=== PATIENT | male | born 1985 | race Caucasian/White ===

== ENCOUNTER 2016-12-10 14:45 | Inpatient (IN) | payer SELFPAY ==
[2016-12-10 15:17] LABS: ABSOLUTE EOSINOPHILS # (AUTO) 0.1 10^3/uL (0.0-0.6); ABSOLUTE LYMPHOCYTES (AUTO) 1.8 10^3/uL (0.5-4.7); ABSOLUTE MONOCYTES (AUTO) 0.4 10^3/uL (0.1-1.4); ABSOLUTE NEUT (AUTO) 4.2 10^3/uL (1.7-8.2); BASOPHILS % (AUTO) 0.8 % (0-2); EOSINOPHILS % (AUTO) 1.3 % (0-6); HEMATOCRIT 44.3 % (37.9-51.0); HEMOGLOBIN 15.1 g/dL (13.5-17.0); LYMPHOCYTES % (AUTO) 27.2 % (13-45); MEAN CORPUSCULAR HEMOGLOBIN 29.6 pg (27.0-33.4); MEAN CORPUSCULAR VOLUME 87 fl (80-97); MONOCYTES % (AUTO) 5.5 % (3-13); RED BLOOD COUNT 5.08 10^6/uL (4.35-5.55); RED CELL DISTRIBUTION WIDTH 13.6 % (11.5-14.0); SEGMENTED NEUTROPHILS % (AUTO) 65.2 % (42-78); WHITE BLOOD COUNT 6.5 10^3/uL (4.0-10.5)
[2016-12-10] MEDS ORDERED: NORMAL SALINE 1000 ML 1,000 ML IV PRN ×2 (15:24→17:00)
[2016-12-10] MEDS ORDERED: ACTIVATED CHARCOAL 25 GM BOTTLE NG PRN (15:26)
[2016-12-10] MEDS ORDERED: ETOMIDATE INJ/PF 20 MG/10 ML SDV IV ONE (15:27)
[2016-12-10] MEDS ORDERED: PROPOFOL 100 ML IV PRN (15:28)
[2016-12-10 15:32] LABS: ARTERIAL BLOOD O2 SATURATION 98.1 % (94-98)
[2016-12-10 15:32] LABS: ALANINE AMINOTRANSFERASE 46 U/L (21-72); ALBUMIN 4.4 g/dL (3.5-5.0); ALKALINE PHOSPHATASE 53 U/L (38-126); ANION GAP 10 (5-19); ASPARTATE AMINO TRANSFERASE 25 U/L (17-59); BILIRUBIN,DIRECT 0.1 mg/dL (0.0-0.4); BILIRUBIN,TOTAL 0.5 mg/dL (0.2-1.3); BLOOD UREA NITROGEN 19 mg/dL (7-20); CALCIUM 9.6 mg/dL (8.4-10.2); CARBON DIOXIDE 29 mmol/L (22-30); CHLORIDE 101 mmol/L (98-107); CREATINE KINASE 82 U/L (55-170); CREATININE RESULT 0.96 mg/dL (0.52-1.25); GLUCOSE 159 mg/dL (75-110); LIPASE 84.4 U/L (23-300); POTASSIUM 5.1 mmol/L (3.6-5.0); SODIUM 140.3 mmol/L (137-145); TOTAL PROTEIN 6.8 g/dL (6.3-8.2)
[2016-12-10] MEDS: DOPAMINE HCL/DEXTROSE 5%-WATER 250 ML IV PRN ×2 (15:35→23:40)
[2016-12-10 15:38] LABS: ALCOHOL < 10 mg/dL (NONE DETECTED); LITHIUM < 0.2 mEq/L (0.6-1.2)
--- NOTE | 2016-12-10 15:40 | ER Document Report ---
ED General - General Chief Complaint: Overdose Stated Complaint: POSSIBLE OVERDOSE Time seen by provider: 14:00 Mode of Arrival: Medic Information source: Relative, Emergency Med Personnel Cannot obtain history due to: Altered mental status Notes: 31-year-old male brought by EMS with report by patient's mother suspected overdose. Mother reports that the patient has a long history of multiple suicide attempts and was feeling suicidal this morning. He reports he had what she describes as a "panic attack" and then went into the bathroom and she heard him swallow pills. About 20 minutes after that he seemed to become lethargic and she called 911. The patient arrives with empty bottles with the following. Clonazepam 2 mg total of 90 filled for 2917 one 3 times a day when necessary, amitriptyline 100 mg total of 45 filled 11/24/2016 one daily at bedtime and one half when necessary anxiety, and clonidine 0.2 mg total of 30 one half by mouth daily at bedtime filled 11/14/2016 when asked how many of these were in the bottles prior to his suspected overdose the mother could only put her finger at a level on the bottle and could not give a specific quantity. EMS personnel administered 4 mg of Narcan without improvement. Patient arrives with respirations supported by bagging. Patient also has bottles of amoxicillin, lithium, buspirone and escitalopram which on initial examination appear to have an appropriate quantity left. Mother is unsure about patient's recent past medical history or symptoms other than he is always suicidal. Physical exam Well-developed well-nourished male obtunded no respiratory distress with bagging but minimal respiratory effort Skin warm and dry HEENT no soft atraumatic pupils 3 mm round minimally reactive sclerae anicteric mucous toe injection. Oropharynx shows moist 6 membranes partially edentulous no otorhinorrhea Neck supple trachea midline no adenopathy no JVD Chest clear to auscultation bilateral breath sounds equal with bagging Heart regular rate and rhythm PMI not displaced no murmur Abdomen bowel sounds positive soft nontender nondistended no guarding rebound rigidity normal male no lesions Extremities warm to plus pulses no cyanosis no edema right lower extremity IO in place Neuro unresponsive [place] Coma Score 3 TRAVEL OUTSIDE OF THE [place] IN LAST 30 DAYS: No - Related Data Allergies/Adverse Reactions: No Known Allergies Allergy (Verified 03/27/16 23:26) Past Medical History - Social History Smoking Status: Current Every Day Smoker Family History: Malignancy - Past Medical History Cardiac Medical History: Reports: None Psychiatric Medical History: Reports: Hx Anxiety, Hx Depression, Hx Post Traumatic Stress Disorder - Immunizations Hx Diphtheria, Pertussis, Tetanus Vaccination: No Review of Systems - Review of Systems -: Yes ROS unobtainable due to patient's medical condition Physical Exam - Vital signs Vitals: Temp Pulse Resp BP Pulse Ox 95.8 F L 62 16 82/50 L 100 12/10/16 15:01 12/10/16 15:01 12/10/16 15:01 12/10/16 15:01 12/10/16 15:01 Course - Re-evaluation Re-evalutation: 12/10/16 15:56 Mother reports patient been taking extra clonazepam for several days but doesn' t believe he took clonidine or amitriptyline until this morning. Patient color he requires intubation as well as bicarbonate drip for tricyclic overdose also start dopamine for suspected clonidine overdose. I discussed case with Dr. Marquez hospitalist service here she believes they can adequately manage the patient in the intensive care unit at this facility and accepts the patient for admission. Patient is continued to be monitored by this physician pending hospitalist evaluation is become hypotensive on dopamine at 20 mics per kilo per minute. Patient is also on bicarbonate drip at 125 an hour with 3 A of sodium bicarbonate per liter. Patient received 1 amp of sodium bicarbonate bolus and this improved his blood pressure to 97/60. He also has EKG findings suspicious for tricyclic overdose labs confirming that are currently pending. Patient had approximately 50 mL of pill fragments returned from OG suction with the largest tube available in the emergency department. Patient also have activated charcoal placed down the tube total critical care time this physician exiting billable procedures is 1 hour - Vital Signs Vital signs: Temp Pulse Resp BP Pulse Ox 95.8 F L 62 16 82/50 L 100 12/10/16 15:01 12/10/16 15:01 12/10/16 15:01 12/10/16 15:01 12/10/16 15:28 - Laboratory Result Diagrams: 12/10/16 14:39 12/10/16 14:39 Laboratory results interpreted by me: 12/10/16 12/10/16 14:39 15:18 ABG pO2 111.8 H ABG HCO3 27.1 H ABG Total CO2 28.4 H ABG O2 Saturation 98.1 H Potassium 5.1 H Glucose 159 H Salicylates < 1.0 L Acetaminophen < 10 L [place] < 0.2 L - Diagnostic Test Radiology reviewed: Image reviewed - EKG Interpretation by Me Additional EKG results interpreted by me: 12/10/16 15:50 EKG reviewed by myself shows sinus rhythm at 63 with nonspecific interventricular conduction delay no acute changes Procedures - Intubation Orotracheal Time of Intubation: 14:10 Intubation method: Orotracheal Blade type: Maria Elena Blade size: 4 ETT size: 7.5 ETT secured at: Teeth ETT secured at (cm): 24 Breath Sounds after Intubation: Equal End tidal CO2 confirmed: Yes Post Intubation Xray: Yes Intubation Complications: No complications Notes: 12/10/16 15:55 Patient is initially sent with 3 Maria Elena blade was unable to visualize cords. The patient had small amount of fresh blood to the epiglottis from EMS and attempted intubation. With a 4 Maria Elena blade but a portion of the portions visualized ET tube was passed good color change with CO2 detector good breath sounds auscultated bilaterally oxygen saturation 99%. Follow chest x-ray shows ET tube at the holli and we pulled back 1 cm from 24-23 at the teeth. locations patient tolerated procedure well after intubation patient received 20 mg etomidate IV and he developed some gagging after the intubation required no sedation for the intubation itself. Patient is noted to have missing incisors prior to intubation Discharge - Discharge Clinical Impression: Overdose Qualifiers: Encounter type: initial encounter Injury intent: intentional self-harm Qualified Code(s): T50.902A - Poisoning by unspecified drugs, medicaments and biological substances, intentional self-harm, initial encounter Admitting Provider: Hospitalist Unit Admitted: ICU
[2016-12-10] MEDS ORDERED: SODIUM BICARBONATE 4.2% INJ (2.4 MEQ/5 ML) VIAL INJ ONE (15:43)
[2016-12-10] MEDS ORDERED: SODIUM BICARBONATE 8.4% INJ 50 MEQ/50 ML DISP.SYRIN ONE ×2 (15:46→21:16)
[2016-12-10 15:50] LABS: CREATINE KINASE MB < 0.22 ng/mL (<4.55); TROPONIN I < 0.012 ng/mL
[2016-12-10 16:16] LABS: APPEARANCE,URINE SLIGHTLY-CLOUDY; BILIRUBIN,URINE NEGATIVE (NEGATIVE); GLUCOSE, URINE NEGATIVE (NEGATIVE); KETONES,URINE NEGATIVE (NEGATIVE); LEUKOCYTE ESTERASE,URINE NEGATIVE (NEGATIVE); NITRITE,URINE NEGATIVE (NEGATIVE); PROTEIN,URINE 30 mg/dL (NEGATIVE); URINE SPECIFIC GRAVITY 1.028; UROBILINOGEN,URINE NEGATIVE mg/dL (<2.0)
[2016-12-10] MEDS ORDERED: DEXTROSE 5% IV ONE ×4 (16:32→17:01)
[2016-12-10] MEDS ORDERED: SODIUM BICARBONATE IV ONE ×4 (16:32→17:01)
[2016-12-10] MEDS ORDERED: WATER IV ONE ×4 (16:32→17:01)
[2016-12-10] MEDS ORDERED: LEVALBUTEROL HCL NEB 1.25 MG/3 ML AMPUL NEB PRN (16:54)
[2016-12-10] MEDS ORDERED: MIDAZOLAM HCL 100 ML IV PRN (17:13)
[2016-12-10] MEDS ORDERED: DEXTROSE 5%-WATER 250 ML with NOREPINEPHRINE BITARTRATE 4 MG IV PRN ×2 (17:15)
[2016-12-10] MEDS ORDERED: FOLIC ACID 1 MG TABLET NG ONE (17:17)
[2016-12-10] MEDS ORDERED: DEXTROSE 5%-WATER 1000 ML 1,000 ML with SODIUM BICARBONATE 150 MEQ IV PRN ×2 (17:19)
[2016-12-10] MEDS ORDERED: PHARMACY COMMUNICATION ORDER MC NR (17:30)
[2016-12-10 17:50] LABS: URINE BARBITURATES SCREEN NEGATIVE; URINE METHADONE SCREEN NEGATIVE; URINE OPIATES LOW UNCONFIRMED POSITIVE; URINE PHENCYCLIDINE SCREEN UNCONFIRMED POSITIVE
[2016-12-10] MEDS: FENTANYL CITRATE INJ/PF 100 MCG/2 ML AMPUL IV PRN (18:38)
--- NOTE | 2016-12-10 18:55 | EKG REPORT ---
SEVERITY:- ABNORMAL ECG - SINUS RHYTHM NONSPECIFIC INTRAVENTRICULAR CONDUCTION DELAY INFERIOR Q WAVES, PROBABLY NORMAL VARIATION QTC PROLONGATION. : Confirmed by: Doc Webster MD 10-Dec-2016 18:55:15
--- NOTE | 2016-12-10 18:57 | EKG REPORT ---
SEVERITY:- ABNORMAL ECG - SINUS RHYTHM NONSPECIFIC INTRAVENTRICULAR CONDUCTION DELAY INFERIOR Q WAVES, PROBABLY NORMAL VARIATION RIGHT AXIS DEVIATION : Confirmed by: Doc Webster MD 10-Dec-2016 18:56:42
[2016-12-10 19:00] LABS: ARTERIAL BLOOD BASE EXCESS 4.5 mmol/L
[2016-12-10 19:01] LABS: ABSOLUTE BASOPHILS # (AUTO) 0.1 10^3/uL (0.0-0.2); ABSOLUTE LYMPHOCYTES (AUTO) 1.2 10^3/uL (0.5-4.7); ABSOLUTE MONOCYTES (AUTO) 0.6 10^3/uL (0.1-1.4); ABSOLUTE NEUT (AUTO) 8.6 10^3/uL (1.7-8.2); BASOPHILS % (AUTO) 0.6 % (0-2); EOSINOPHILS % (AUTO) 0.5 % (0-6); HEMATOCRIT 44.1 % (37.9-51.0); HEMOGLOBIN 15.2 g/dL (13.5-17.0); HGB HCT DIFFERENCE 1.5; LYMPHOCYTES % (AUTO) 11.3 % (13-45); MEAN CORPUSCULAR HEMOGLOBIN 29.7 pg (27.0-33.4); MEAN CORPUSCULAR HGB CONC 34.5 g/dL (32.0-36.0); MEAN CORPUSCULAR VOLUME 86 fl (80-97); MONOCYTES % (AUTO) 5.5 % (3-13); RED BLOOD COUNT 5.12 10^6/uL (4.35-5.55); RED CELL DISTRIBUTION WIDTH 13.5 % (11.5-14.0); SEGMENTED NEUTROPHILS % (AUTO) 82.1 % (42-78); WHITE BLOOD COUNT 10.5 10^3/uL (4.0-10.5)
[2016-12-10 19:15] LABS: ANION GAP 13 (5-19); BLOOD UREA NITROGEN 17 mg/dL (7-20); CALCIUM 9.5 mg/dL (8.4-10.2); CARBON DIOXIDE 28 mmol/L (22-30); CHLORIDE 99 mmol/L (98-107); GLUCOSE 202 mg/dL (75-110)
[2016-12-10 19:20] LABS: LITHIUM < 0.2 mEq/L (0.6-1.2)
[2016-12-10] MEDS ORDERED: INSULIN REG, HUMAN 100 UNIT/ML 3 ML VIAL (PYX) SUBCUT PRN (19:28)
[2016-12-10] MEDS ORDERED: DEXTROSE 50%-WATER 25 GM/50 ML DISP.SYRIN IV PRN ×2 (19:28)
[2016-12-10] MEDS ORDERED: GLUCAGON,HUMAN RECOMB 1 MG INJ IM PRN (19:28)
[2016-12-10] MEDS ORDERED: DEXTROSE 40% GEL 15 GM TUBE PO PRN ×2 (19:28)
--- NOTE | 2016-12-10 19:39 | PDOC H&P ---
History of Present Illness Admission Date/PCP: 12/10/16 16:54 History of Present Illness: OLGA FAN is a 31 year old male with history of depression who reportedly took an overdose medication. Mother reports that the patient has a long history of multiple suicide attempts and was feeling suicidal this morning. She reports he had what she describes as a "panic attack" and then went into the bathroom and she heard him swallow pills. About 20 minutes after that he seemed to become lethargic and she called 911. The patient arrives with empty bottles with the following. Clonazepam 2 mg total of 90 filled , amitriptyline 100 mg total of 45 filled 11/24/2016, and clonidine 0.2 mg total of 30 one half by mouth daily at bedtime filled 11/14/2016. EMS personnel administered 4 mg of Narcan without improvement. Patient has been intubated and given activated charcoal by the emergency department as well as bolus sodium bicarbonate. He is on a bicarbonate drip at this time. Patient also has bottles of amoxicillin, lithium, buspirone and escitalopram which on initial examination appear to have an appropriate quantity left. Patient is referred to hospital service for management of his tricyclic overdose Past Medical History Cardiac Medical History: Reports: None Psychiatric Medical History: Reports: Depression, Post Traumatic Stress Disorder Past Surgical History Past Surgical History: Reports: None Social History Smoking Status: Current Every Day Smoker Frequency of Alcohol Use: Occasional Hx Recreational Drug Use: Yes Drugs: Marijuana Hx Prescription Drug Abuse: Yes - Advance Directive Resuscitation Status: Full Code Surrogate healthcare decision maker:: MotherAnisa Family History Family History: DM, Malignancy Parental Family History Reviewed: Yes Children Family History Reviewed: NA Sibling(s) Family History Reviewed.: Yes Medication/Allergy Home Medications: Amitriptyline HCl [Elavil 100 mg Tablet] 100 mg PO QHS 12/10/16 Buspirone HCl [Buspar 30 mg Tablet] 30 mg PO Q12 12/10/16 Clonazepam [Klonopin 2 mg Tablet] 2 mg PO TIDP PRN 12/10/16 Clonidine HCl [Catapres 0.2 mg Tablet] 0.2 mg PO QHS 12/10/16 [place] Carbonate 450 mg PO QHS 12/10/16 [place] Carbonate [[place] Carbonate ER] 300 mg PO DAILY 12/10/16 Allergies/Adverse Reactions: No Known Allergies Allergy (Verified 03/27/16 23:26) Review of Systems ROS unobtainable: Due to endotracheal tube Physical Exam Vital Signs: Temp Pulse Resp BP Pulse Ox 95.5 F L 85 22 H 112/76 100 12/10/16 18:05 12/10/16 18:05 12/10/16 18:05 12/10/16 18:05 12/10/16 18:05 Intake & Output 12/09/16 12/10/16 12/11/16 06:59 06:59 06:59 Output Total 440 Balance -440 General appearance: PRESENT: well-developed, well-nourished Exam: Patient is intubated and not sedated. Head exam: PRESENT: atraumatic, normocephalic Eye exam: PRESENT: conjunctiva pink. ABSENT: EOMI - Unresponsive, PERRLA - Unresponsive, mydriasis, scleral icterus Ear exam: PRESENT: normal external ear exam Mouth exam: PRESENT: moist, tongue midline Neck exam: ABSENT: carotid bruit, JVD, lymphadenopathy, thyromegaly, tracheal deviation Respiratory exam: PRESENT: clear to auscultation dom, symmetrical, unlabored. ABSENT: rales, rhonchi, wheezes Cardiovascular exam: PRESENT: gallop, RRR, +S1, +S2. ABSENT: diastolic murmur, rubs, systolic murmur, tachycardia Pulses: PRESENT: normal dorsalis pedis pul Vascular exam: PRESENT: pallor GI/Abdominal exam: PRESENT: diminished bowel sounds, distended, normal bowel sounds, soft. ABSENT: firm, guarding, mass, organolmegaly, rebound, rigid Rectal exam: PRESENT: deferred Extremities exam: PRESENT: full ROM. ABSENT: clubbing, pedal edema Neurological exam: PRESENT: other - Intubated GCS 3T Psychiatric exam: PRESENT: other - Unable to assess Skin exam: PRESENT: dry, intact, warm. ABSENT: cyanosis, rash Results Laboratory Results: 12/10/16 18:50 12/10/16 12/10/16 18:37 18:50 WBC 10.5 RBC 5.12 Hgb 15.2 Hct 44.1 MCV 86 MCH 29.7 MCHC 34.5 RDW 13.5 Plt Count 277 Seg Neutrophils % 82.1 H Lymphocytes % 11.3 L Monocytes % 5.5 Eosinophils % 0.5 Basophils % 0.6 Absolute Neutrophils 8.6 H Absolute Lymphocytes 1.2 Absolute Monocytes 0.6 Absolute Eosinophils 0.0 Absolute Basophils 0.1 Carbonic Acid 0.85 L HCO3/H2CO3 Ratio 30:1 ABG pH 7.57 H ABG pCO2 28.3 L ABG pO2 127.8 H ABG HCO3 25.5 ABG O2 Saturation 99.0 H ABG Base Excess 4.5 FiO2 40% Impressions: Head CT 12/10/16 15:03 IMPRESSION: No acute intracranial finding. Chest X-Ray 12/10/16 15:59 IMPRESSION: Mild interstitial thickening. Mild subsegmental atelectasis is present in the medial lung bases. Endotracheal tube tip is 7 cm above the level of the holli. Assessment & Plan - Diagnosis (1) Overdose of tricyclic antidepressants Qualifiers: Encounter type: initial encounter Injury intent: intentional self-harm Qualified Code(s): T43.012A - Poisoning by tricyclic antidepressants, intentional self-harm, initial encounter Is this a current diagnosis for this admission?: YesPlan: Patient currently has been bolused for sodium bicarbonate. He has also been placed on a sodium bicarbonate drip. We will check BMPs, EKGs, and ABGs every 4 hours. We will bolus sodium bicarbonate for QRS greater than 100 ms and for other ventricular arrhythmias associated with this. Patient goal pH of 7.5- 7.55. He is currently being hyperventilated. Patient has been placed on seizure precautions. He is IVC. (2) Clonidine overdose Qualifiers: Encounter type: initial encounter Injury intent: intentional self-harm Qualified Code(s): T46.5X2A - Poisoning by other antihypertensive drugs , intentional self-harm, initial encounter Is this a current diagnosis for this admission?: YesPlan: We'll use dopamine for bradycardia. Continues for patient's blood pressure. (3) Intentional benzodiazepine overdose Qualifiers: Encounter type: initial encounter Qualified Code(s): T42.4X2A - Poisoning by benzodiazepines, intentional self-harm, initial encounter Is this a current diagnosis for this admission?: YesPlan: Supportive care. Avoid Romazicon. (4) Hypotension Qualifiers: Hypotension type: hypotension due to drug Qualified Code(s): I95.2 - Hypotension due to drugs Is this a current diagnosis for this admission?: YesPlan: Continue fluids and pressors. (5) Tobacco abuse Is this a current diagnosis for this admission?: Yes (6) Suicide attempt Is this a current diagnosis for this admission?: YesPlan: Patient is on IVC. (7) Respiratory failure requiring intubation Is this a current diagnosis for this admission?: YesPlan: We'll consult pulmonary medicine for ventilator management. Currently hyperventilating for pH reasons. - Time Time Spent: Greater than 70 Minutes Critical Time spent with patient: 35 or more minutes Medications reviewed and adjusted accordingly: Yes Anticipated discharge: Other - Inpatient Certification Based on my medical assessment, after consideration of the patient's comorbidities, presenting symptoms, or acuity I expect that the services needed warrant INPATIENT care.: Yes I certify that my determination is in accordance with my understanding of Medicare's requirements for reasonable and necessary INPATIENT services [42 CFR 412.3e].: Yes Medical Necessity: Need For IV Fluids, Need For Continuous Telemetry Monitoring Post Hospital Care: D/C Student Liaison Officer Documentation
[2016-12-10 19:44] LABS: POTASSIUM 3.8 mmol/L (3.6-5.0)
[2016-12-10 21:12] LABS: CREATINE KINASE MB < 0.22 ng/mL (<4.55); TROPONIN I < 0.012 ng/mL
[2016-12-10] MEDS: HEPARIN SOD (PORCINE) 5,000 UNIT/ML 1 ML SYRINGE SUBCUT SCH (21:21)
[2016-12-10] MEDS: PANTOPRAZOLE SODIUM 40 MG VIAL IV SCH (21:23)
[2016-12-10] MEDS: THIAMINE HCL 100 MG in NORMAL SALINE 50 ML IV SCH (21:26)
[2016-12-10] MEDS ORDERED: SODIUM BICARBONATE 8.4% INJ 50 MEQ/50 ML DISP.SYRIN IV ONE (21:45)
[2016-12-10 22:16] LABS: ARTERIAL BLOOD BASE EXCESS 9.5 mmol/L
[2016-12-11 00:21] LABS: ARTERIAL BLOOD BASE EXCESS 9.6 mmol/L; ARTERIAL BLOOD O2 SATURATION 98.3 % (94-98)
[2016-12-11 00:54] LABS: ANION GAP 12 (5-19); BLOOD UREA NITROGEN 12 mg/dL (7-20); CALCIUM 8.8 mg/dL (8.4-10.2); CARBON DIOXIDE 29 mmol/L (22-30); CHLORIDE 98 mmol/L (98-107); CREATINE KINASE 70 U/L (55-170); CREATININE RESULT 0.69 mg/dL (0.52-1.25); GLUCOSE 183 mg/dL (75-110); SODIUM 138.7 mmol/L (137-145)
[2016-12-11 01:09] LABS: CREATINE KINASE MB < 0.22 ng/mL (<4.55); TROPONIN I < 0.012 ng/mL
[2016-12-11] MEDS ORDERED: SODIUM BICARBONATE 8.4% INJ 50 MEQ/50 ML DISP.SYRIN IV ONE ×4 (01:10→19:00)
[2016-12-11] MEDS: DEXTROSE 5%-WATER 1000 ML 1,000 ML with SODIUM BICARBONATE 150 MEQ IV PRN ×8 (01:33→19:16)
[2016-12-11] MEDS: PROPOFOL 100 ML IV PRN ×5 (02:05→21:52)
[2016-12-11 04:09] LABS: ABSOLUTE BASOPHILS # (AUTO) 0.1 10^3/uL (0.0-0.2); ABSOLUTE MONOCYTES (AUTO) 0.7 10^3/uL (0.1-1.4); ABSOLUTE NEUT (AUTO) 7.5 10^3/uL (1.7-8.2); BASOPHILS % (AUTO) 0.6 % (0-2); EOSINOPHILS % (AUTO) 0.5 % (0-6); HEMATOCRIT 43.3 % (37.9-51.0); HEMOGLOBIN 15.1 g/dL (13.5-17.0); LYMPHOCYTES % (AUTO) 10.9 % (13-45); MEAN CORPUSCULAR HEMOGLOBIN 29.5 pg (27.0-33.4); MEAN CORPUSCULAR HGB CONC 34.8 g/dL (32.0-36.0); MEAN CORPUSCULAR VOLUME 85 fl (80-97); MONOCYTES % (AUTO) 7.4 % (3-13); RED CELL DISTRIBUTION WIDTH 13.7 % (11.5-14.0); SEGMENTED NEUTROPHILS % (AUTO) 80.6 % (42-78); WHITE BLOOD COUNT 9.3 10^3/uL (4.0-10.5)
[2016-12-11 04:16] LABS: PROTHROMBIN TIME 13.7 SEC (11.4-15.4)
[2016-12-11 04:16] LABS: ARTERIAL BLOOD O2 SATURATION 97.8 % (94-98)
[2016-12-11 04:24] LABS: ANION GAP 10 (5-19); BLOOD UREA NITROGEN 10 mg/dL (7-20); CALCIUM 8.7 mg/dL (8.4-10.2); CARBON DIOXIDE 32 mmol/L (22-30); CHLORIDE 100 mmol/L (98-107); CREATININE RESULT 0.66 mg/dL (0.52-1.25); GLUCOSE 181 mg/dL (75-110); POTASSIUM 3.3 mmol/L (3.6-5.0); SODIUM 142.1 mmol/L (137-145)
[2016-12-11] MEDS: HEPARIN SOD (PORCINE) 5,000 UNIT/ML 1 ML SYRINGE SUBCUT SCH ×3 (05:47→21:20)
[2016-12-11] MEDS: POTASSI CL 20 MEQ/50 ML RIDER 20 MEQ/50 ML RTUPB IV SCH ×2 (05:47→07:11)
[2016-12-11] MEDS: POTASSI CL 20 MEQ/NS 1L 1,000 ML IV PRN ×2 (05:48→15:38)
[2016-12-11 07:44] LABS: ALANINE AMINOTRANSFERASE 45 U/L (21-72); ALBUMIN 3.3 g/dL (3.5-5.0); ALKALINE PHOSPHATASE 52 U/L (38-126); ANION GAP 11 (5-19); ASPARTATE AMINO TRANSFERASE 23 U/L (17-59); BILIRUBIN,DIRECT 0.2 mg/dL (0.0-0.4); BILIRUBIN,TOTAL 0.7 mg/dL (0.2-1.3); BLOOD UREA NITROGEN 8 mg/dL (7-20); CALCIUM 8.5 mg/dL (8.4-10.2); CARBON DIOXIDE 30 mmol/L (22-30); CHLORIDE 100 mmol/L (98-107); CREATINE KINASE 262 U/L (55-170); CREATININE RESULT 0.64 mg/dL (0.52-1.25); GLUCOSE 174 mg/dL (75-110); MAGNESIUM 1.7 mg/dL (1.6-2.3); POTASSIUM 3.5 mmol/L (3.6-5.0); SODIUM 141.4 mmol/L (137-145); TOTAL PROTEIN 5.6 g/dL (6.3-8.2); TRIGLYCERIDES 111 mg/dL (<150)
[2016-12-11 07:48] LABS: CREATINE KINASE MB 1.49 ng/mL (<4.55)
[2016-12-11 07:55] LABS: TROPONIN I < 0.012 ng/mL
[2016-12-11 08:09] LABS: ARTERIAL BLOOD BASE EXCESS 5.8 mmol/L
--- NOTE | 2016-12-11 08:19 | EKG REPORT ---
SEVERITY:- ABNORMAL ECG - SINUS RHYTHM INFERIOR Q WAVES, PROBABLY NORMAL VARIATION PROLONGED QT INTERVAL, IMPROVING : Confirmed by: Doc Webster MD 11-Dec-2016 08:18:17
--- NOTE | 2016-12-11 08:20 | EKG REPORT ---
SEVERITY:- ABNORMAL ECG - SINUS RHYTHM INFERIOR Q WAVES, PROBABLY NORMAL VARIATION PROLONGED QT INTERVAL, IMPROVING : Confirmed by: Doc Webster MD 11-Dec-2016 08:19:21
--- NOTE | 2016-12-11 08:20 | EKG REPORT ---
SEVERITY:- ABNORMAL ECG - SINUS RHYTHM INFERIOR Q WAVES, PROBABLY NORMAL VARIATION PROLONGED QT INTERVAL : Confirmed by: Doc Webster MD 11-Dec-2016 08:19:43
[2016-12-11] MEDS: PANTOPRAZOLE SODIUM 40 MG VIAL IV SCH ×2 (09:08→21:21)
[2016-12-11 11:50] LABS: ANION GAP 9 (5-19); BLOOD UREA NITROGEN 7 mg/dL (7-20); CALCIUM 8.6 mg/dL (8.4-10.2); CARBON DIOXIDE 29 mmol/L (22-30); CHLORIDE 103 mmol/L (98-107); CREATININE RESULT 0.64 mg/dL (0.52-1.25); GLUCOSE 161 mg/dL (75-110); POTASSIUM 3.5 mmol/L (3.6-5.0)
[2016-12-11 11:53] LABS: ARTERIAL BLOOD BASE EXCESS 6.2 mmol/L
[2016-12-11] MEDS: CLINDAMYCIN 600 MG/D5W RTU 50 ML IV SCH ×2 (13:15→21:19)
[2016-12-11] MEDS: POTASSIUM CHLORIDE 20 MEQ/50 ML RTU IV SCH ×2 (14:35→16:49)
[2016-12-11 15:56] LABS: ANION GAP 10 (5-19); BLOOD UREA NITROGEN 6 mg/dL (7-20); CALCIUM 8.7 mg/dL (8.4-10.2); CARBON DIOXIDE 28 mmol/L (22-30); CHLORIDE 105 mmol/L (98-107); CREATININE RESULT 0.64 mg/dL (0.52-1.25); GLUCOSE 142 mg/dL (75-110); POTASSIUM 3.5 mmol/L (3.6-5.0); SODIUM 142.5 mmol/L (137-145)
[2016-12-11 16:41] LABS: ARTERIAL BLOOD BASE EXCESS 5.4 mmol/L; ARTERIAL BLOOD O2 SATURATION 96.5 % (94-98)
[2016-12-11] MEDS: DOPAMINE HCL/DEXTROSE 5%-WATER 250 ML IV PRN (16:48)
--- NOTE | 2016-12-11 19:34 | PDOC PROGRESS REPORT ---
Subjective Progress Note for:: 12/11/16 Subjective:: Patient was extremities when sedation is lightened. Intubated and sedated. Unable to obtain review of systems Physical Exam Vital Signs: Temp Pulse Resp BP Pulse Ox 98.8 F 85 16 105/62 100 12/11/16 06:39 12/10/16 20:00 12/11/16 06:39 12/11/16 06:39 12/11/16 06:39 Intake & Output 12/10/16 12/11/16 12/12/16 06:59 06:59 06:59 Intake Total 2151 Output Total 3715 Balance -1564 Weight 81.7 kg Exam: General: Intubated and sedated HEENT: AT/NC, PERRL, oropharynx is moist, pink, no scleral icterus, no conjunctival injection Neck: No JVD, trachea midline Chest: Clear to auscultation bilaterally, no wheezes rhonchi or rales CV: Regular rate and rhythm, normal S1 and S2, no murmur, rub, or gallop Abdomen: Soft, mildly distended, hypoactive bowel sounds; no rigidity Extremities: No cyanosis, clubbing or edema Results Laboratory Results: 12/11/16 03:57 12/10/16 12/10/16 12/10/16 18:37 18:50 18:50 WBC 10.5 RBC 5.12 Hgb 15.2 Hct 44.1 MCV 86 MCH 29.7 MCHC 34.5 RDW 13.5 Plt Count 277 Seg Neutrophils % 82.1 H Lymphocytes % 11.3 L Monocytes % 5.5 Eosinophils % 0.5 Basophils % 0.6 Absolute Neutrophils 8.6 H Absolute Lymphocytes 1.2 Absolute Monocytes 0.6 Absolute Eosinophils 0.0 Absolute Basophils 0.1 Carbonic Acid 0.85 L HCO3/H2CO3 Ratio 30:1 ABG pH 7.57 H ABG pCO2 28.3 L ABG pO2 127.8 H ABG HCO3 25.5 ABG O2 Saturation 99.0 H ABG Base Excess 4.5 FiO2 40% Sodium 140.0 Potassium 3.8 D Chloride 99 Carbon Dioxide 28 Anion Gap 13 BUN 17 Creatinine 0.80 Est GFR ( Amer) > 60 Est GFR (Non-Af Amer) > 60 Glucose 202 H Lactic Acid Calcium 9.5 12/10/16 12/10/16 12/11/16 19:24 22:00 00:00 WBC RBC Hgb Hct MCV MCH MCHC RDW Plt Count Seg Neutrophils % Lymphocytes % Monocytes % Eosinophils % Basophils % Absolute Neutrophils Absolute Lymphocytes Absolute Monocytes Absolute Eosinophils Absolute Basophils Carbonic Acid 0.93 L 1.20 HCO3/H2CO3 Ratio 32:1 27:1 ABG pH 7.62 H* 7.54 H ABG pCO2 30.8 L 39.9 ABG pO2 88.0 105.4 H ABG HCO3 30.6 H 33.0 H ABG O2 Saturation 98.0 98.3 H ABG Base Excess 9.5 9.6 FiO2 30% 30% Sodium Potassium Chloride Carbon Dioxide Anion Gap BUN Creatinine Est GFR ( Amer) Est GFR (Non-Af Amer) Glucose Lactic Acid 2.4 H Calcium 12/11/16 12/11/16 12/11/16 00:31 03:57 03:57 WBC 9.3 RBC 5.10 Hgb 15.1 Hct 43.3 MCV 85 MCH 29.5 MCHC 34.8 RDW 13.7 Plt Count 263 Seg Neutrophils % 80.6 H Lymphocytes % 10.9 L Monocytes % 7.4 Eosinophils % 0.5 Basophils % 0.6 Absolute Neutrophils 7.5 Absolute Lymphocytes 1.0 Absolute Monocytes 0.7 Absolute Eosinophils 0.0 Absolute Basophils 0.1 Carbonic Acid HCO3/H2CO3 Ratio ABG pH ABG pCO2 ABG pO2 ABG HCO3 ABG O2 Saturation ABG Base Excess FiO2 Sodium 138.7 142.1 Potassium 4.0 3.3 L Chloride 98 100 Carbon Dioxide 29 32 H Anion Gap 12 10 BUN 12 10 Creatinine 0.69 0.66 Est GFR ( Amer) > 60 > 60 Est GFR (Non-Af Amer) > 60 > 60 Glucose 183 H 181 H Lactic Acid Calcium 8.8 8.7 12/11/16 04:00 WBC RBC Hgb Hct MCV MCH MCHC RDW Plt Count Seg Neutrophils % Lymphocytes % Monocytes % Eosinophils % Basophils % Absolute Neutrophils Absolute Lymphocytes Absolute Monocytes Absolute Eosinophils Absolute Basophils Carbonic Acid 1.13 HCO3/H2CO3 Ratio 27:1 ABG pH 7.53 H ABG pCO2 37.6 ABG pO2 92.0 ABG HCO3 31.0 H ABG O2 Saturation 97.8 ABG Base Excess 8.0 FiO2 25% Sodium Potassium Chloride Carbon Dioxide Anion Gap BUN Creatinine Est GFR ( Amer) Est GFR (Non-Af Amer) Glucose Lactic Acid Calcium 12/10/16 12/10/16 12/11/16 18:50 18:50 00:31 Creatine Kinase 74 70 CK-MB (CK-2) < 0.22 Troponin I < 0.012 12/11/16 00:31 Creatine Kinase CK-MB (CK-2) < 0.22 Troponin I < 0.012 Impressions: Head CT 12/10/16 15:03 IMPRESSION: No acute intracranial finding. Assessment & Plan - Diagnosis (1) Overdose of tricyclic antidepressants Qualifiers: Encounter type: initial encounter Injury intent: intentional self-harm Qualified Code(s): T43.012A - Poisoning by tricyclic antidepressants, intentional self-harm, initial encounter Is this a current diagnosis for this admission?: YesPlan: Currently on sodium bicarbonate drip. Check BMPs, EKGs, and ABGs every 4 hours. We will bolus sodium bicarbonate for QRS greater than 100 ms and for other ventricular arrhythmias associated with this. Patient goal pH of 7.5- 7.55. He is currently being hyperventilated. Patient has been placed on seizure precautions. He is IVC. (2) Clonidine overdose Qualifiers: Encounter type: initial encounter Injury intent: intentional self-harm Qualified Code(s): T46.5X2A - Poisoning by other antihypertensive drugs , intentional self-harm, initial encounter Is this a current diagnosis for this admission?: YesPlan: We'll use dopamine for bradycardia. (3) Intentional benzodiazepine overdose Qualifiers: Encounter type: initial encounter Qualified Code(s): T42.4X2A - Poisoning by benzodiazepines, intentional self-harm, initial encounter Is this a current diagnosis for this admission?: YesPlan: Supportive care. Avoid Romazicon. (4) Hypotension Qualifiers: Hypotension type: hypotension due to drug Qualified Code(s): I95.2 - Hypotension due to drugs Is this a current diagnosis for this admission?: YesPlan: Continue fluids and pressors. (5) Suicide attempt Is this a current diagnosis for this admission?: Yes (6) Respiratory failure requiring intubation Is this a current diagnosis for this admission?: YesPlan: We'll consult pulmonary medicine for ventilator management. Currently hyperventilating for pH reasons. (7) Tobacco abuse Is this a current diagnosis for this admission?: Yes - Time Critical Time spent with patient: 35 or more minutes Medications reviewed and adjusted accordingly: Yes
[2016-12-11 20:23] LABS: ARTERIAL BLOOD BASE EXCESS 6.7 mmol/L; ARTERIAL BLOOD O2 SATURATION 95.5 % (94-98)
[2016-12-11] MEDS: THIAMINE HCL 100 MG in NORMAL SALINE 50 ML IV SCH (21:52)
[2016-12-11 21:53] LABS: ANION GAP 12 (5-19); BLOOD UREA NITROGEN 6 mg/dL (7-20); CALCIUM 8.8 mg/dL (8.4-10.2); CARBON DIOXIDE 25 mmol/L (22-30); CHLORIDE 105 mmol/L (98-107); CREATININE RESULT 0.66 mg/dL (0.52-1.25); GLUCOSE 121 mg/dL (75-110); POTASSIUM 3.6 mmol/L (3.6-5.0); SODIUM 142.3 mmol/L (137-145)
[2016-12-12 00:12] LABS: ARTERIAL BLOOD BASE EXCESS 6.4 mmol/L; ARTERIAL BLOOD O2 SATURATION 97.7 % (94-98)
[2016-12-12] MEDS: POTASSI CL 20 MEQ/NS 1L 1,000 ML IV PRN ×3 (00:20→19:48)
[2016-12-12] MEDS: DEXTROSE 5%-WATER 1000 ML 1,000 ML with SODIUM BICARBONATE 150 MEQ IV PRN ×8 (00:20→21:37)
[2016-12-12 00:34] LABS: ANION GAP 8 (5-19); BLOOD UREA NITROGEN 6 mg/dL (7-20); CALCIUM 8.4 mg/dL (8.4-10.2); CARBON DIOXIDE 27 mmol/L (22-30); CHLORIDE 106 mmol/L (98-107); CREATININE RESULT 0.65 mg/dL (0.52-1.25); GLUCOSE 138 mg/dL (75-110); POTASSIUM 3.4 mmol/L (3.6-5.0); SODIUM 141.4 mmol/L (137-145)
[2016-12-12] MEDS ORDERED: SODIUM BICARBONATE 8.4% INJ 50 MEQ/50 ML DISP.SYRIN IV ONE ×4 (01:30→17:15)
[2016-12-12] MEDS: POTASSI CL 20 MEQ/50 ML RIDER 20 MEQ/50 ML RTUPB IV SCH ×2 (01:33→03:45)
[2016-12-12 04:04] LABS: ABSOLUTE EOSINOPHILS # (AUTO) 0.1 10^3/uL (0.0-0.6); ABSOLUTE LYMPHOCYTES (AUTO) 0.8 10^3/uL (0.5-4.7); ABSOLUTE MONOCYTES (AUTO) 0.6 10^3/uL (0.1-1.4); BASOPHILS % (AUTO) 0.5 % (0-2); EOSINOPHILS % (AUTO) 1.5 % (0-6); HEMATOCRIT 43.4 % (37.9-51.0); HEMOGLOBIN 14.4 g/dL (13.5-17.0); HGB HCT DIFFERENCE -0.2; MEAN CORPUSCULAR HEMOGLOBIN 29.2 pg (27.0-33.4); MEAN CORPUSCULAR HGB CONC 33.3 g/dL (32.0-36.0); MEAN CORPUSCULAR VOLUME 88 fl (80-97); MONOCYTES % (AUTO) 7.7 % (3-13); RED BLOOD COUNT 4.95 10^6/uL (4.35-5.55); RED CELL DISTRIBUTION WIDTH 13.6 % (11.5-14.0); SEGMENTED NEUTROPHILS % (AUTO) 79.3 % (42-78); WHITE BLOOD COUNT 7.5 10^3/uL (4.0-10.5)
[2016-12-12 04:09] LABS: ARTERIAL BLOOD BASE EXCESS 3.4 mmol/L; ARTERIAL BLOOD O2 SATURATION 98.4 % (94-98)
[2016-12-12 04:45] LABS: ADD ON TESTING BLD IN LAB ACKNOWLEDGE
[2016-12-12 04:57] LABS: ANION GAP 10 (5-19); BLOOD UREA NITROGEN 5 mg/dL (7-20); CALCIUM 8.7 mg/dL (8.4-10.2); CARBON DIOXIDE 27 mmol/L (22-30); CHLORIDE 106 mmol/L (98-107); CREATININE RESULT 0.65 mg/dL (0.52-1.25); GLUCOSE 146 mg/dL (75-110); POTASSIUM 3.6 mmol/L (3.6-5.0); SODIUM 143.1 mmol/L (137-145)
[2016-12-12] MEDS: CLINDAMYCIN 600 MG/D5W RTU 50 ML IV SCH ×2 (05:15→13:22)
[2016-12-12] MEDS: HEPARIN SOD (PORCINE) 5,000 UNIT/ML 1 ML SYRINGE SUBCUT SCH ×3 (05:15→21:38)
[2016-12-12] MEDS ORDERED: POTASSI CL 20 MEQ/50 ML RIDER 20 MEQ/50 ML RTUPB IV ONE (05:30)
[2016-12-12] MEDS: PROPOFOL 100 ML IV PRN (06:23)
--- NOTE | 2016-12-12 08:05 | EKG REPORT ---
SEVERITY:- ABNORMAL ECG - SINUS RHYTHM NONSPECIFIC ST-T CHANGES- INFERIOR LEADS : Confirmed by: Doc Webster MD 12-Dec-2016 08:05:05
--- NOTE | 2016-12-12 08:05 | EKG REPORT ---
SEVERITY:- BORDERLINE ECG - SINUS RHYTHM INFERIOR Q WAVES, PROBABLY NORMAL VARIATION : Confirmed by: Doc Webster MD 12-Dec-2016 08:04:28
--- NOTE | 2016-12-12 08:06 | EKG REPORT ---
SEVERITY:- BORDERLINE ECG - SINUS RHYTHM INFERIOR Q WAVES, PROBABLY NORMAL VARIATION BORDERLINE T WAVE ABNORMALITIES : Confirmed by: Doc Webster MD 12-Dec-2016 08:05:59
--- NOTE | 2016-12-12 08:06 | EKG REPORT ---
SEVERITY:- BORDERLINE ECG - SINUS RHYTHM INFERIOR Q WAVES, PROBABLY NORMAL VARIATION QT PROLONGATION IMPROVED. : Confirmed by: Doc Webster MD 12-Dec-2016 08:05:43
--- NOTE | 2016-12-12 08:07 | EKG REPORT ---
SEVERITY:- NORMAL ECG - SINUS RHYTHM MILD QT PROLONGATION : Confirmed by: Doc Webster MD 12-Dec-2016 08:06:29
--- NOTE | 2016-12-12 08:08 | EKG REPORT ---
SEVERITY:- BORDERLINE ECG - SINUS RHYTHM INFERIOR Q WAVES, PROBABLY NORMAL VARIATION BORDERLINE PROLONGED QT INTERVAL : Confirmed by: Doc Webster MD 12-Dec-2016 08:06:43
[2016-12-12 08:25] LABS: ARTERIAL BLOOD O2 SATURATION 97.3 % (94-98)
[2016-12-12] MEDS: PANTOPRAZOLE SODIUM 40 MG VIAL IV SCH ×2 (09:28→21:39)
[2016-12-12 09:31] LABS: ALANINE AMINOTRANSFERASE 36 U/L (21-72); ALBUMIN 3.2 g/dL (3.5-5.0); ALKALINE PHOSPHATASE 56 U/L (38-126); ANION GAP 9 (5-19); ASPARTATE AMINO TRANSFERASE 25 U/L (17-59); BILIRUBIN,DIRECT 0.2 mg/dL (0.0-0.4); BILIRUBIN,TOTAL 0.4 mg/dL (0.2-1.3); BLOOD UREA NITROGEN 5 mg/dL (7-20); CALCIUM 8.5 mg/dL (8.4-10.2); CARBON DIOXIDE 26 mmol/L (22-30); CHLORIDE 107 mmol/L (98-107); CREATININE RESULT 0.63 mg/dL (0.52-1.25); GLUCOSE 142 mg/dL (75-110); POTASSIUM 3.9 mmol/L (3.6-5.0); SODIUM 142.3 mmol/L (137-145); TOTAL PROTEIN 5.5 g/dL (6.3-8.2)
[2016-12-12] MEDS ORDERED: SODIUM BICARBONATE 8.4% INJ 50 MEQ/50 ML DISP.SYRIN ONE ×2 (12:28→16:47)
--- NOTE | 2016-12-12 12:41 | EKG REPORT ---
SEVERITY:- BORDERLINE ECG - SINUS RHYTHM INFERIOR Q WAVES, PROBABLY NORMAL VARIATION BORDERLINE PROLONGED QT INTERVAL : Confirmed by: Doc Webster MD 12-Dec-2016 12:41:17
--- NOTE | 2016-12-12 12:42 | EKG REPORT ---
SEVERITY:- BORDERLINE ECG - SINUS RHYTHM INFERIOR Q WAVES, PROBABLY NORMAL VARIATION : Confirmed by: Doc Webster MD 12-Dec-2016 12:41:53
[2016-12-12] MEDS: LORAZEPAM INJ 2 MG/1 ML VIAL IV PRN ×3 (13:18→19:50)
--- NOTE | 2016-12-12 13:43 | PDOC PROGRESS REPORT ---
Subjective Progress Note for:: 12/12/16 Subjective:: intubated responses to commands Physical Exam Vital Signs: Temp Pulse Resp BP Pulse Ox 97.2 F 73 17 127/72 H 99 12/12/16 07:46 12/12/16 07:46 12/12/16 07:46 12/12/16 07:46 12/12/16 07:46 Intake & Output 12/11/16 12/12/16 12/13/16 06:59 06:59 06:59 Intake Total 2151 6470 Output Total 3715 6067 920 Balance -1564 445 -920 Weight 81.7 kg 84.3 kg General appearance: PRESENT: no acute distress, disheveled, well-developed, well -nourished Head exam: PRESENT: atraumatic, normocephalic Eye exam: PRESENT: conjunctiva pale, EOMI Mouth exam: PRESENT: dry mucosa, neck supple, other - ET tube in place Neck exam: ABSENT: carotid bruit, JVD, lymphadenopathy, thyromegaly Respiratory exam: PRESENT: prolonged expiratory phas, rhonchi, symmetrical, unlabored Cardiovascular exam: PRESENT: RRR, +S1, +S2 Pulses: PRESENT: normal radial pulses GI/Abdominal exam: PRESENT: normal bowel sounds, soft. ABSENT: distended, guarding, mass, organolmegaly, rebound, tenderness Rectal exam: PRESENT: deferred Gentrourinary exam: PRESENT: indwelling catheter Musculoskeletal exam: PRESENT: normal inspection Neurological exam: PRESENT: awake Skin exam: PRESENT: dry, warm Results Laboratory Results: 12/12/16 03:53 12/12/16 03:53 12/11/16 12/11/16 12/11/16 11:14 11:48 15:26 WBC RBC Hgb Hct MCV MCH MCHC RDW Plt Count Seg Neutrophils % Lymphocytes % Monocytes % Eosinophils % Basophils % Absolute Neutrophils Absolute Lymphocytes Absolute Monocytes Absolute Eosinophils Absolute Basophils Carbonic Acid 1.07 HCO3/H2CO3 Ratio 27:1 ABG pH 7.53 H ABG pCO2 35.4 ABG pO2 80.8 ABG HCO3 28.9 H ABG O2 Saturation 97.0 ABG Base Excess 6.2 FiO2 21% Sodium 141.0 142.5 Potassium 3.5 L 3.5 L Chloride 103 105 Carbon Dioxide 29 28 Anion Gap 9 10 BUN 7 6 L Creatinine 0.64 0.64 Est GFR ( Amer) > 60 > 60 Est GFR (Non-Af Amer) > 60 > 60 Glucose 161 H 142 H Calcium 8.6 8.7 Magnesium 12/11/16 12/11/16 12/11/16 16:25 20:00 20:45 WBC RBC Hgb Hct MCV MCH MCHC RDW Plt Count Seg Neutrophils % Lymphocytes % Monocytes % Eosinophils % Basophils % Absolute Neutrophils Absolute Lymphocytes Absolute Monocytes Absolute Eosinophils Absolute Basophils Carbonic Acid 1.04 L 1.03 L HCO3/H2CO3 Ratio 26:1 28:1 ABG pH 7.53 H 7.55 H ABG pCO2 34.4 L 34.3 L ABG pO2 75.9 L 67.7 L ABG HCO3 28.0 H 29.1 H ABG O2 Saturation 96.5 95.5 ABG Base Excess 5.4 6.7 FiO2 21% 21% Sodium 142.3 Potassium 3.6 Chloride 105 Carbon Dioxide 25 Anion Gap 12 BUN 6 L Creatinine 0.66 Est GFR ( Amer) > 60 Est GFR (Non-Af Amer) > 60 Glucose 121 H Calcium 8.8 Magnesium 12/12/16 12/12/16 12/12/16 00:00 00:15 03:53 WBC 7.5 RBC 4.95 Hgb 14.4 Hct 43.4 MCV 88 MCH 29.2 MCHC 33.3 RDW 13.6 Plt Count 246 Seg Neutrophils % 79.3 H Lymphocytes % 11.0 L Monocytes % 7.7 Eosinophils % 1.5 Basophils % 0.5 Absolute Neutrophils 6.0 Absolute Lymphocytes 0.8 Absolute Monocytes 0.6 Absolute Eosinophils 0.1 Absolute Basophils 0.0 Carbonic Acid 1.09 HCO3/H2CO3 Ratio 26:1 ABG pH 7.53 H ABG pCO2 36.2 ABG pO2 91.7 ABG HCO3 29.3 H ABG O2 Saturation 97.7 ABG Base Excess 6.4 FiO2 25% Sodium 141.4 Potassium 3.4 L Chloride 106 Carbon Dioxide 27 Anion Gap 8 BUN 6 L Creatinine 0.65 Est GFR ( Amer) > 60 Est GFR (Non-Af Amer) > 60 Glucose 138 H Calcium 8.4 Magnesium 12/12/16 12/12/16 12/12/16 03:53 03:53 04:00 WBC RBC Hgb Hct MCV MCH MCHC RDW Plt Count Seg Neutrophils % Lymphocytes % Monocytes % Eosinophils % Basophils % Absolute Neutrophils Absolute Lymphocytes Absolute Monocytes Absolute Eosinophils Absolute Basophils Carbonic Acid 0.97 L HCO3/H2CO3 Ratio 26:1 ABG pH 7.52 H ABG pCO2 32.3 L ABG pO2 108.6 H ABG HCO3 25.7 ABG O2 Saturation 98.4 H ABG Base Excess 3.4 FiO2 25% Sodium 143.1 Potassium 3.6 Chloride 106 Carbon Dioxide 27 Anion Gap 10 BUN 5 L Creatinine 0.65 Est GFR ( Amer) > 60 Est GFR (Non-Af Amer) > 60 Glucose 146 H Calcium 8.7 Magnesium 1.9 12/10/16 12/10/16 12/11/16 18:50 18:50 00:31 Creatine Kinase 74 70 CK-MB (CK-2) < 0.22 Troponin I < 0.012 12/11/16 12/11/16 12/11/16 00:31 07:00 07:00 Creatine Kinase 262 H CK-MB (CK-2) < 0.22 1.49 Troponin I < 0.012 < 0.012 Impressions: Head CT 12/10/16 15:03 IMPRESSION: No acute intracranial finding. Chest X-Ray 12/12/16 06:00 IMPRESSION: Tip of an endotracheal tube is at or above the thoracic inlet ; consider 3.5 cm advancement. Interval improvement. Assessment & Plan - Diagnosis (1) Intentional benzodiazepine overdose Qualifiers: Encounter type: initial encounter Qualified Code(s): T42.4X2A - Poisoning by benzodiazepines, intentional self-harm, initial encounter Is this a current diagnosis for this admission?: YesPlan: Spontaneous and appropriate respirations on pressure support and CPAP responds to commands from the nurse (2) Overdose of tricyclic antidepressants Qualifiers: Encounter type: initial encounter Injury intent: intentional self-harm Qualified Code(s): T43.012A - Poisoning by tricyclic antidepressants, intentional self-harm, initial encounter Is this a current diagnosis for this admission?: YesPlan: QT cycle on EKG shortening back to normal (3) Respiratory failure requiring intubation Is this a current diagnosis for this admission?: YesPlan: Respiratory rate, minute ventilation, FiO2, and airway pressures suggest a successful extubation will proceed with extubation (4) Tobacco abuse Is this a current diagnosis for this admission?: YesPlan: Transdermal nicotine - Time Critical Time spent with patient: 35 or more minutes - 55 minutes with extubation
[2016-12-12 13:53] LABS: ANION GAP 11 (5-19); BLOOD UREA NITROGEN 5 mg/dL (7-20); CALCIUM 8.5 mg/dL (8.4-10.2); CARBON DIOXIDE 24 mmol/L (22-30); CHLORIDE 109 mmol/L (98-107); CREATININE RESULT 0.71 mg/dL (0.52-1.25); GLUCOSE 114 mg/dL (75-110); POTASSIUM 4.1 mmol/L (3.6-5.0); SODIUM 144.2 mmol/L (137-145)
--- NOTE | 2016-12-12 15:01 | PDOC CONSULTATION ---
Consultation Consult Date: 12/11/16 Attending physician:: NASIR ANGLIN Consult reason:: resp arrest History of Present Illness Admission Date/PCP: 12/10/16 16:54 History of Present Illness: OLGA FAN is a 31 year old male overdosing on multiple drugs including a tricyclic antidepressant which she takes for depression it appears that is some prolongation of his QTC is currently intubated for airway protection and possible aspiration and hyperventilated as well as given bicarb to maintain a metabolic to maintain an alkalotic blood pH. Drug screen is positive for TCAs marijuana benzo diazepam, PCP and opiates. Past Medical History Cardiac Medical History: Reports: None Psychiatric Medical History: Reports: Depression, Post Traumatic Stress Disorder Past Surgical History Past Surgical History: Reports: None Social History Information Source: [facility] Records Lives with: Family Smoking Status: Unknown if Ever Smoked Frequency of Alcohol Use: Occasional Hx Recreational Drug Use: Yes Drugs: Marijuana Hx Prescription Drug Abuse: Yes - Advance Directive Resuscitation Status: Full Code Family History Family History: DM, Malignancy Parental Family History Reviewed: No Children Family History Reviewed: No Sibling(s) Family History Reviewed.: No Medication/Allergy Home Medications: Amitriptyline HCl [Elavil 100 mg Tablet] 100 mg PO QHS 12/10/16 Buspirone HCl [Buspar 30 mg Tablet] 30 mg PO Q12 12/10/16 Clonazepam [Klonopin 2 mg Tablet] 2 mg PO TIDP PRN 12/10/16 Clonidine HCl [Catapres 0.2 mg Tablet] 0.2 mg PO QHS 12/10/16 Teague Carbonate 450 mg PO QHS 12/10/16 Teague Carbonate [Teague Carbonate ER] 300 mg PO DAILY 12/10/16 Allergies/Adverse Reactions: No Known Allergies Allergy (Verified 03/27/16 23:26) Review of Systems ROS unobtainable: Due to endotracheal tube Physical Exam Vital Signs: Temp Pulse Resp BP Pulse Ox 99.1 F 80 16 106/59 L 100 12/11/16 07:55 12/11/16 07:55 12/11/16 07:55 12/11/16 07:55 12/11/16 08:05 Intake & Output 12/10/16 12/11/16 12/12/16 06:59 06:59 06:59 Intake Total 2151 Output Total 3715 350 Balance -1564 -350 Weight 81.7 kg General appearance: PRESENT: no acute distress, disheveled, well-developed, well -nourished Head exam: PRESENT: atraumatic, normocephalic Eye exam: PRESENT: conjunctiva pale Mouth exam: PRESENT: dry mucosa, neck supple, other - Endotracheal tube in place Neck exam: ABSENT: carotid bruit, JVD, lymphadenopathy, thyromegaly Respiratory exam: PRESENT: decreased breath sounds, prolonged expiratory phas, rhonchi, symmetrical, unlabored Cardiovascular exam: PRESENT: RRR, +S1, +S2 Pulses: PRESENT: normal radial pulses GI/Abdominal exam: PRESENT: normal bowel sounds, soft. ABSENT: distended, guarding, mass, organolmegaly, rebound, tenderness Rectal exam: PRESENT: deferred Gentrourinary exam: PRESENT: indwelling catheter Musculoskeletal exam: PRESENT: normal inspection Skin exam: PRESENT: dry Results Laboratory Results: 12/11/16 03:57 12/11/16 07:00 12/10/16 12/10/16 12/10/16 18:37 18:50 18:50 WBC 10.5 RBC 5.12 Hgb 15.2 Hct 44.1 MCV 86 MCH 29.7 MCHC 34.5 RDW 13.5 Plt Count 277 Seg Neutrophils % 82.1 H Lymphocytes % 11.3 L Monocytes % 5.5 Eosinophils % 0.5 Basophils % 0.6 Absolute Neutrophils 8.6 H Absolute Lymphocytes 1.2 Absolute Monocytes 0.6 Absolute Eosinophils 0.0 Absolute Basophils 0.1 Carbonic Acid 0.85 L HCO3/H2CO3 Ratio 30:1 ABG pH 7.57 H ABG pCO2 28.3 L ABG pO2 127.8 H ABG HCO3 25.5 ABG O2 Saturation 99.0 H ABG Base Excess 4.5 FiO2 40% Sodium 140.0 Potassium 3.8 D Chloride 99 Carbon Dioxide 28 Anion Gap 13 BUN 17 Creatinine 0.80 Est GFR ( Amer) > 60 Est GFR (Non-Af Amer) > 60 Glucose 202 H Lactic Acid Calcium 9.5 Magnesium Total Bilirubin AST ALT Alkaline Phosphatase Total Protein Albumin Triglycerides 12/10/16 12/10/16 12/11/16 19:24 22:00 00:00 WBC RBC Hgb Hct MCV MCH MCHC RDW Plt Count Seg Neutrophils % Lymphocytes % Monocytes % Eosinophils % Basophils % Absolute Neutrophils Absolute Lymphocytes Absolute Monocytes Absolute Eosinophils Absolute Basophils Carbonic Acid 0.93 L 1.20 HCO3/H2CO3 Ratio 32:1 27:1 ABG pH 7.62 H* 7.54 H ABG pCO2 30.8 L 39.9 ABG pO2 88.0 105.4 H ABG HCO3 30.6 H 33.0 H ABG O2 Saturation 98.0 98.3 H ABG Base Excess 9.5 9.6 FiO2 30% 30% Sodium Potassium Chloride Carbon Dioxide Anion Gap BUN Creatinine Est GFR ( Amer) Est GFR (Non-Af Amer) Glucose Lactic Acid 2.4 H Calcium Magnesium Total Bilirubin AST ALT Alkaline Phosphatase Total Protein Albumin Triglycerides 12/11/16 12/11/16 12/11/16 00:31 03:57 03:57 WBC 9.3 RBC 5.10 Hgb 15.1 Hct 43.3 MCV 85 MCH 29.5 MCHC 34.8 RDW 13.7 Plt Count 263 Seg Neutrophils % 80.6 H Lymphocytes % 10.9 L Monocytes % 7.4 Eosinophils % 0.5 Basophils % 0.6 Absolute Neutrophils 7.5 Absolute Lymphocytes 1.0 Absolute Monocytes 0.7 Absolute Eosinophils 0.0 Absolute Basophils 0.1 Carbonic Acid HCO3/H2CO3 Ratio ABG pH ABG pCO2 ABG pO2 ABG HCO3 ABG O2 Saturation ABG Base Excess FiO2 Sodium 138.7 142.1 Potassium 4.0 3.3 L Chloride 98 100 Carbon Dioxide 29 32 H Anion Gap 12 10 BUN 12 10 Creatinine 0.69 0.66 Est GFR ( Amer) > 60 > 60 Est GFR (Non-Af Amer) > 60 > 60 Glucose 183 H 181 H Lactic Acid Calcium 8.8 8.7 Magnesium Total Bilirubin AST ALT Alkaline Phosphatase Total Protein Albumin Triglycerides 12/11/16 12/11/16 12/11/16 04:00 07:00 07:56 WBC RBC Hgb Hct MCV MCH MCHC RDW Plt Count Seg Neutrophils % Lymphocytes % Monocytes % Eosinophils % Basophils % Absolute Neutrophils Absolute Lymphocytes Absolute Monocytes Absolute Eosinophils Absolute Basophils Carbonic Acid 1.13 1.06 HCO3/H2CO3 Ratio 27:1 26:1 ABG pH 7.53 H 7.53 H ABG pCO2 37.6 35.3 ABG pO2 92.0 80.5 ABG HCO3 31.0 H 28.6 H ABG O2 Saturation 97.8 97.0 ABG Base Excess 8.0 5.8 FiO2 25% 21% Sodium 141.4 Potassium 3.5 L Chloride 100 Carbon Dioxide 30 Anion Gap 11 BUN 8 Creatinine 0.64 Est GFR ( Amer) > 60 Est GFR (Non-Af Amer) > 60 Glucose 174 H Lactic Acid Calcium 8.5 Magnesium 1.7 Total Bilirubin 0.7 AST 23 ALT 45 Alkaline Phosphatase 52 Total Protein 5.6 L Albumin 3.3 L Triglycerides 111 12/10/16 12/10/16 12/11/16 18:50 18:50 00:31 Creatine Kinase 74 70 CK-MB (CK-2) < 0.22 Troponin I < 0.012 12/11/16 12/11/16 12/11/16 00:31 07:00 07:00 Creatine Kinase 262 H CK-MB (CK-2) < 0.22 1.49 Troponin I < 0.012 < 0.012 Impressions: Head CT 12/10/16 15:03 IMPRESSION: No acute intracranial finding. Chest X-Ray 12/11/16 06:00 IMPRESSION: Mild asymmetric pulmonary edema. New small atelectasis or pneumonia of the right mid lung field. Lines and tubes. Assessment & Plan - Diagnosis (1) Intentional benzodiazepine overdose Qualifiers: Encounter type: initial encounter Qualified Code(s): T42.4X2A - Poisoning by benzodiazepines, intentional self-harm, initial encounter Is this a current diagnosis for this admission?: YesPlan: Maintain appropriate oxygenation and ventilation (2) Overdose of tricyclic antidepressants Qualifiers: Encounter type: initial encounter Injury intent: intentional self-harm Qualified Code(s): T43.012A - Poisoning by tricyclic antidepressants, intentional self-harm, initial encounter Is this a current diagnosis for this admission?: YesPlan: Maintain alkalosis metabolic and respiratory (3) Respiratory failure requiring intubation Is this a current diagnosis for this admission?: YesPlan: Need for hyperventilation, level of consciousness patient unable to protect airway (4) Tobacco abuse Is this a current diagnosis for this admission?: YesPlan: Transdermal nicotine - Time Critical Time spent with patient: 35 or more minutes
--- NOTE | 2016-12-12 15:32 | PDOC PROGRESS REPORT ---
Subjective Progress Note for:: 12/12/16 Subjective:: Patient is intubated and sedated Unable to obtain review of systems secondary to this. Physical Exam Vital Signs: Temp Pulse Resp BP Pulse Ox 97.2 F 73 17 127/72 H 99 12/12/16 07:46 12/12/16 07:46 12/12/16 07:46 12/12/16 07:46 12/12/16 07:46 Intake & Output 12/11/16 12/12/16 12/13/16 06:59 06:59 06:59 Intake Total 2151 6470 Output Total 3719 6079 920 Balance -1564 445 -920 Weight 81.7 kg 84.3 kg Exam: General: Intubated and sedated HEENT: AT/NC, PERRL, oropharynx is moist, pink, no scleral icterus, no conjunctival injection Neck: No JVD, trachea midline Chest: Clear to auscultation bilaterally, no wheezes rhonchi or rales CV: Regular rate and rhythm, normal S1 and S2, no murmur, rub, or gallop Abdomen: Soft, mildly distended, hypoactive bowel sounds; no rigidity Extremities: No cyanosis, clubbing or edema Results Laboratory Results: 12/12/16 03:53 12/12/16 03:53 12/11/16 12/11/16 12/11/16 07:56 11:14 11:48 WBC RBC Hgb Hct MCV MCH MCHC RDW Plt Count Seg Neutrophils % Lymphocytes % Monocytes % Eosinophils % Basophils % Absolute Neutrophils Absolute Lymphocytes Absolute Monocytes Absolute Eosinophils Absolute Basophils Carbonic Acid 1.06 1.07 HCO3/H2CO3 Ratio 26:1 27:1 ABG pH 7.53 H 7.53 H ABG pCO2 35.3 35.4 ABG pO2 80.5 80.8 ABG HCO3 28.6 H 28.9 H ABG O2 Saturation 97.0 97.0 ABG Base Excess 5.8 6.2 FiO2 21% 21% Sodium 141.0 Potassium 3.5 L Chloride 103 Carbon Dioxide 29 Anion Gap 9 BUN 7 Creatinine 0.64 Est GFR ( Amer) > 60 Est GFR (Non-Af Amer) > 60 Glucose 161 H Calcium 8.6 Magnesium 12/11/16 12/11/16 12/11/16 15:26 16:25 20:00 WBC RBC Hgb Hct MCV MCH MCHC RDW Plt Count Seg Neutrophils % Lymphocytes % Monocytes % Eosinophils % Basophils % Absolute Neutrophils Absolute Lymphocytes Absolute Monocytes Absolute Eosinophils Absolute Basophils Carbonic Acid 1.04 L 1.03 L HCO3/H2CO3 Ratio 26:1 28:1 ABG pH 7.53 H 7.55 H ABG pCO2 34.4 L 34.3 L ABG pO2 75.9 L 67.7 L ABG HCO3 28.0 H 29.1 H ABG O2 Saturation 96.5 95.5 ABG Base Excess 5.4 6.7 FiO2 21% 21% Sodium 142.5 Potassium 3.5 L Chloride 105 Carbon Dioxide 28 Anion Gap 10 BUN 6 L Creatinine 0.64 Est GFR ( Amer) > 60 Est GFR (Non-Af Amer) > 60 Glucose 142 H Calcium 8.7 Magnesium 12/11/16 12/12/16 12/12/16 20:45 00:00 00:15 WBC RBC Hgb Hct MCV MCH MCHC RDW Plt Count Seg Neutrophils % Lymphocytes % Monocytes % Eosinophils % Basophils % Absolute Neutrophils Absolute Lymphocytes Absolute Monocytes Absolute Eosinophils Absolute Basophils Carbonic Acid 1.09 HCO3/H2CO3 Ratio 26:1 ABG pH 7.53 H ABG pCO2 36.2 ABG pO2 91.7 ABG HCO3 29.3 H ABG O2 Saturation 97.7 ABG Base Excess 6.4 FiO2 25% Sodium 142.3 141.4 Potassium 3.6 3.4 L Chloride 105 106 Carbon Dioxide 25 27 Anion Gap 12 8 BUN 6 L 6 L Creatinine 0.66 0.65 Est GFR ( Amer) > 60 > 60 Est GFR (Non-Af Amer) > 60 > 60 Glucose 121 H 138 H Calcium 8.8 8.4 Magnesium 12/12/16 12/12/16 12/12/16 03:53 03:53 03:53 WBC 7.5 RBC 4.95 Hgb 14.4 Hct 43.4 MCV 88 MCH 29.2 MCHC 33.3 RDW 13.6 Plt Count 246 Seg Neutrophils % 79.3 H Lymphocytes % 11.0 L Monocytes % 7.7 Eosinophils % 1.5 Basophils % 0.5 Absolute Neutrophils 6.0 Absolute Lymphocytes 0.8 Absolute Monocytes 0.6 Absolute Eosinophils 0.1 Absolute Basophils 0.0 Carbonic Acid HCO3/H2CO3 Ratio ABG pH ABG pCO2 ABG pO2 ABG HCO3 ABG O2 Saturation ABG Base Excess FiO2 Sodium 143.1 Potassium 3.6 Chloride 106 Carbon Dioxide 27 Anion Gap 10 BUN 5 L Creatinine 0.65 Est GFR ( Amer) > 60 Est GFR (Non-Af Amer) > 60 Glucose 146 H Calcium 8.7 Magnesium 1.9 12/12/16 04:00 WBC RBC Hgb Hct MCV MCH MCHC RDW Plt Count Seg Neutrophils % Lymphocytes % Monocytes % Eosinophils % Basophils % Absolute Neutrophils Absolute Lymphocytes Absolute Monocytes Absolute Eosinophils Absolute Basophils Carbonic Acid 0.97 L HCO3/H2CO3 Ratio 26:1 ABG pH 7.52 H ABG pCO2 32.3 L ABG pO2 108.6 H ABG HCO3 25.7 ABG O2 Saturation 98.4 H ABG Base Excess 3.4 FiO2 25% Sodium Potassium Chloride Carbon Dioxide Anion Gap BUN Creatinine Est GFR ( Amer) Est GFR (Non-Af Amer) Glucose Calcium Magnesium 12/10/16 12/10/16 12/11/16 18:50 18:50 00:31 Creatine Kinase 74 70 CK-MB (CK-2) < 0.22 Troponin I < 0.012 12/11/16 12/11/16 12/11/16 00:31 07:00 07:00 Creatine Kinase 262 H CK-MB (CK-2) < 0.22 1.49 Troponin I < 0.012 < 0.012 Impressions: Head CT 12/10/16 15:03 IMPRESSION: No acute intracranial finding. Chest X-Ray 12/12/16 06:00 IMPRESSION: Tip of an endotracheal tube is at or above the thoracic inlet ; consider 3.5 cm advancement. Interval improvement. Assessment & Plan - Diagnosis (1) Overdose of tricyclic antidepressants Qualifiers: Encounter type: initial encounter Injury intent: intentional self-harm Qualified Code(s): T43.012A - Poisoning by tricyclic antidepressants, intentional self-harm, initial encounter Is this a current diagnosis for this admission?: YesPlan: Continue on sodium bicarbonate drip. Check BMPs, EKGs every 4 hours. We will bolus sodium bicarbonate for QRS greater than 100 ms and for other ventricular arrhythmias associated with this. Patient goal pH of 7.5-7.55. Patient has been placed on seizure precautions. He is IVC'd. (2) Clonidine overdose Qualifiers: Encounter type: initial encounter Injury intent: intentional self-harm Qualified Code(s): T46.5X2A - Poisoning by other antihypertensive drugs , intentional self-harm, initial encounter Is this a current diagnosis for this admission?: YesPlan: Currently off dopamine. (3) Intentional benzodiazepine overdose Qualifiers: Encounter type: subsequent encounter Qualified Code(s): T42.4X2D - Poisoning by benzodiazepines, intentional self-harm, subsequent encounter Is this a current diagnosis for this admission?: YesPlan: Supportive care. Avoid Romazicon. (4) Aspiration pneumonia due to inhalation of vomitus Is this a current diagnosis for this admission?: YesPlan: Patient currently on clindamycin and his sputum culture is now growing gram- negative rods in addition to gram-positive cocci and we will add Zosyn for this. Continue scheduled nebulized treatments. (5) Hypotension Qualifiers: Hypotension type: hypotension due to drug Qualified Code(s): I95.2 - Hypotension due to drugs Is this a current diagnosis for this admission?: YesPlan: Will use dopamine for this. He seems responding well to it (6) Suicide attempt Is this a current diagnosis for this admission?: YesPlan: Patient is on IVC. I feel patient should be placed inpatient. (7) Respiratory failure requiring intubation Is this a current diagnosis for this admission?: YesPlan: Plan to extubate patient today once following commands. (8) Tobacco abuse Is this a current diagnosis for this admission?: Yes - Time Critical Time spent with patient: 35 or more minutes Medications reviewed and adjusted accordingly: Yes Anticipated discharge: Other
[2016-12-12] MEDS ORDERED: LORAZEPAM INJ 2 MG/1 ML VIAL IV ONE (17:15)
[2016-12-12 17:57] LABS: ANION GAP 13 (5-19); BLOOD UREA NITROGEN 7 mg/dL (7-20); CALCIUM 8.5 mg/dL (8.4-10.2); CARBON DIOXIDE 23 mmol/L (22-30); CHLORIDE 108 mmol/L (98-107); CREATININE RESULT 0.77 mg/dL (0.52-1.25); GLUCOSE 121 mg/dL (75-110); POTASSIUM 3.8 mmol/L (3.6-5.0); SODIUM 143.9 mmol/L (137-145)
[2016-12-12] MEDS: PIPERACILLIN SODIUM/TAZOBACTAM 3.375 GM in NORMAL SALINE 100 ML IV SCH (17:59)
--- NOTE | 2016-12-12 18:58 | EKG REPORT ---
SEVERITY:- ABNORMAL ECG - SINUS TACHYCARDIA INFERIOR Q WAVES, PROBABLY NORMAL VARIATION NONSPECIFIC T ABNORMALITIES, LATERAL LEADS : Confirmed by: Doc Webster MD 12-Dec-2016 18:58:10
[2016-12-12] MEDS ORDERED: CHLORPROMAZINE HCL INJ 25 MG/1 ML AMPULE IV ONE (19:00)
[2016-12-12] MEDS: FENTANYL CITRATE INJ/PF 100 MCG/2 ML AMPUL IV PRN (19:49)
[2016-12-12 20:34] LABS: ARTERIAL BLOOD BASE EXCESS 5.6 mmol/L
[2016-12-12] MEDS: THIAMINE HCL 100 MG in NORMAL SALINE 50 ML IV SCH (21:39)
[2016-12-12] MEDS ORDERED: POTASSI CL 20 MEQ/50 ML RIDER 50 ML IV ONE (22:00)
[2016-12-12 22:26] LABS: ANION GAP 7 (5-19); BLOOD UREA NITROGEN 6 mg/dL (7-20); CALCIUM 7.6 mg/dL (8.4-10.2); CARBON DIOXIDE 29 mmol/L (22-30); CHLORIDE 105 mmol/L (98-107); CREATININE RESULT 0.76 mg/dL (0.52-1.25); GLUCOSE 126 mg/dL (75-110); POTASSIUM 3.5 mmol/L (3.6-5.0); SODIUM 140.6 mmol/L (137-145)
[2016-12-13 00:41] LABS: ARTERIAL BLOOD BASE EXCESS 6.3 mmol/L; ARTERIAL BLOOD O2 SATURATION 97.7 % (94-98)
[2016-12-13] MEDS ORDERED: SODIUM BICARBONATE 8.4% INJ 50 MEQ/50 ML DISP.SYRIN IV ONE (00:45)
[2016-12-13] MEDS: PIPERACILLIN SODIUM/TAZOBACTAM 3.375 GM in NORMAL SALINE 100 ML IV SCH ×4 (00:54→18:29)
[2016-12-13 00:56] LABS: ANION GAP 10 (5-19); BLOOD UREA NITROGEN 7 mg/dL (7-20); CALCIUM 7.7 mg/dL (8.4-10.2); CARBON DIOXIDE 26 mmol/L (22-30); CHLORIDE 107 mmol/L (98-107); GLUCOSE 126 mg/dL (75-110); POTASSIUM 3.7 mmol/L (3.6-5.0); SODIUM 142.8 mmol/L (137-145)
[2016-12-13] MEDS: LORAZEPAM INJ 2 MG/1 ML VIAL IV PRN ×7 (03:18→23:08)
[2016-12-13 04:49] LABS: HEMATOCRIT 36.8 % (37.9-51.0); HEMOGLOBIN 12.5 g/dL (13.5-17.0); HGB HCT DIFFERENCE 0.7; MEAN CORPUSCULAR HEMOGLOBIN 29.5 pg (27.0-33.4); MEAN CORPUSCULAR HGB CONC 33.9 g/dL (32.0-36.0); MEAN CORPUSCULAR VOLUME 87 fl (80-97); RED BLOOD COUNT 4.22 10^6/uL (4.35-5.55); RED CELL DISTRIBUTION WIDTH 13.6 % (11.5-14.0); WHITE BLOOD COUNT 9.3 10^3/uL (4.0-10.5)
[2016-12-13] MEDS: FENTANYL CITRATE INJ/PF 100 MCG/2 ML AMPUL IV PRN (04:49)
[2016-12-13 04:59] LABS: ANION GAP 8 (5-19); BLOOD UREA NITROGEN 7 mg/dL (7-20); CALCIUM 7.7 mg/dL (8.4-10.2); CARBON DIOXIDE 30 mmol/L (22-30); CHLORIDE 105 mmol/L (98-107); GLUCOSE 123 mg/dL (75-110); MAGNESIUM 1.8 mg/dL (1.6-2.3); POTASSIUM 3.5 mmol/L (3.6-5.0)
[2016-12-13] MEDS: HEPARIN SOD (PORCINE) 5,000 UNIT/ML 1 ML SYRINGE SUBCUT SCH ×3 (05:19→23:23)
[2016-12-13 05:25] LABS: BASOPHILS % (MANUAL) 0 % (0-2); EOSINOPHILS % (MANUAL) 1 % (0-6); LYMPHOCYTES % (MANUAL) 18 % (13-45); TOTAL CELLS COUNTED 100
[2016-12-13 05:27] LABS: ANISOCYTOSIS SLIGHT; OVALOCYTES SLIGHT; PLATELET CLUMPS PRESENT; POIKILOCYTOSIS SLIGHT; POLYCHROMASIA SLIGHT; ROULEAUX SLIGHT; TOXIC GRANULATION 1+
[2016-12-13 07:08] LABS: ARTERIAL BLOOD BASE EXCESS 6.6 mmol/L; ARTERIAL BLOOD O2 SATURATION 96.6 % (94-98)
[2016-12-13] MEDS: DEXTROSE 5%-WATER 1000 ML 1,000 ML with SODIUM BICARBONATE 150 MEQ IV PRN ×2 (07:12)
--- NOTE | 2016-12-13 07:45 | EKG REPORT ---
SEVERITY:- BORDERLINE ECG - SINUS RHYTHM INFERIOR Q WAVES, PROBABLY NORMAL VARIATION BORDERLINE PROLONGED QT INTERVAL : Confirmed by: Doc Webster MD 13-Dec-2016 07:44:18
--- NOTE | 2016-12-13 07:45 | EKG REPORT ---
SEVERITY:- ABNORMAL ECG - SINUS RHYTHM INFERIOR Q WAVES, PROBABLY NORMAL VARIATION BORDERLINE T ABNORMALITIES, INFERIOR LEADS BORDERLINE PROLONGED QT INTERVAL : Confirmed by: Doc Webster MD 13-Dec-2016 07:44:39
--- NOTE | 2016-12-13 07:45 | EKG REPORT ---
SEVERITY:- ABNORMAL ECG - SINUS RHYTHM LEFT ATRIAL ABNORMALITY INFERIOR Q WAVES, PROBABLY NORMAL VARIATION NONSPECIFIC T ABNORMALITIES, INFERIOR LEADS BORDERLINE PROLONGED QT INTERVAL : Confirmed by: Doc Webster MD 13-Dec-2016 07:45:11
[2016-12-13] MEDS ORDERED: FUROSEMIDE INJ/PF 40 MG/4 ML SDV IV ONE (07:48)
[2016-12-13] MEDS ORDERED: DEXTROSE 5%-WATER 1000 ML 1,000 ML with SODIUM BICARBONATE 150 MEQ IV PRN ×4 (07:53→11:24)
[2016-12-13] MEDS ORDERED: DIAZEPAM 5 MG TABLET PO SCH (08:00)
[2016-12-13] MEDS ORDERED: CHLORPROMAZINE HCL INJ 25 MG/1 ML AMPULE IV ONE ×2 (08:00→14:00)
[2016-12-13] MEDS: PANTOPRAZOLE SODIUM 40 MG VIAL IV SCH (09:51)
[2016-12-13] MEDS: DIAZEPAM 5 MG TABLET PO SCH ×3 (11:22→23:24)
[2016-12-13 12:38] LABS: ANION GAP 9 (5-19); BLOOD UREA NITROGEN 6 mg/dL (7-20); CALCIUM 8.3 mg/dL (8.4-10.2); CARBON DIOXIDE 26 mmol/L (22-30); CHLORIDE 103 mmol/L (98-107); CREATININE RESULT 0.83 mg/dL (0.52-1.25); GLUCOSE 112 mg/dL (75-110); POTASSIUM 3.3 mmol/L (3.6-5.0); SODIUM 138.1 mmol/L (137-145)
[2016-12-13] MEDS: KETOROLAC TROMETHAMINE INJ/PF 30 MG/1 ML SDV IV PRN ×2 (13:01→23:08)
[2016-12-13] MEDS ORDERED: POTASSIUM CHLORIDE 10 MEQ TABLET.SA PO ONE ×3 (13:15→19:00)
[2016-12-13] MEDS ORDERED: CHLORPROMAZINE HCL INJ 25 MG/1 ML AMPULE IV SCH (14:00)
--- NOTE | 2016-12-13 14:10 | PDOC PROGRESS REPORT ---
Subjective Progress Note for:: 12/13/16 Subjective:: Patient is extubated, but confused and tearful. He reports that he "just wants to go home". Patient is informed that he is IVC and will remain so due to his attempt at suicide. Patient has requested Maurice out, but after doing this as having some difficulty urinating. Patient reports that trying to kill himself was "his mother's fault". Physical Exam Vital Signs: Temp Pulse Resp BP Pulse Ox 99.3 F 92 24 H 124/88 H 100 12/13/16 06:15 12/13/16 06:00 12/13/16 06:15 12/13/16 06:11 12/13/16 06:15 Intake & Output 12/12/16 12/13/16 12/14/16 06:59 06:59 06:59 Intake Total 6470 7670 Output Total 6003 4445 Balance 445 3225 Weight 84.3 kg 84.2 kg Exam: General: Awake alert and oriented x1, no acute respiratory distress HEENT: AT/NC, PERRL, EOMI, oropharynx is moist, pink, no scleral icterus, no conjunctival injection Neck: No JVD, trachea midline Chest: Bilateral bibasilar rales, rhonchi right lower lobe CV: Regular rate and rhythm, normal S1 and S2, no murmur, rub, or gallop Abdomen: Soft, nontender to palpation, nondistended, active bowel sounds; no rebound, rigidity, or guarding Extremities: No cyanosis, clubbing or edema Neuro: Cranial nerves II through XII are grossly intact without focal deficits Psych: Labile, tearful Results Laboratory Results: 12/13/16 04:34 12/13/16 04:34 12/12/16 12/12/16 12/12/16 08:10 08:45 12:59 WBC RBC Hgb Hct MCV MCH MCHC RDW Plt Count Seg Neutrophils % Lymphocytes % Monocytes % Eosinophils % Basophils % Absolute Neutrophils Absolute Lymphocytes Absolute Monocytes Absolute Eosinophils Absolute Basophils Carbonic Acid 1.02 L HCO3/H2CO3 Ratio 24:1 ABG pH 7.49 H ABG pCO2 33.8 L ABG pO2 87.4 ABG HCO3 24.9 ABG O2 Saturation 97.3 ABG Base Excess 2.0 FiO2 21% Sodium 142.3 144.2 Potassium 3.9 4.1 Chloride 107 109 H Carbon Dioxide 26 24 Anion Gap 9 11 BUN 5 L 5 L Creatinine 0.63 0.71 Est GFR ( Amer) > 60 > 60 Est GFR (Non-Af Amer) > 60 > 60 Glucose 142 H 114 H Calcium 8.5 8.5 Magnesium Total Bilirubin 0.4 AST 25 ALT 36 Alkaline Phosphatase 56 Total Protein 5.5 L Albumin 3.2 L 12/12/16 12/12/16 12/12/16 17:26 20:10 21:57 WBC RBC Hgb Hct MCV MCH MCHC RDW Plt Count Seg Neutrophils % Lymphocytes % Monocytes % Eosinophils % Basophils % Absolute Neutrophils Absolute Lymphocytes Absolute Monocytes Absolute Eosinophils Absolute Basophils Carbonic Acid 1.28 HCO3/H2CO3 Ratio 23:1 ABG pH 7.47 H ABG pCO2 42.5 ABG pO2 103.5 H ABG HCO3 29.9 H ABG O2 Saturation 98.0 ABG Base Excess 5.6 FiO2 2L Sodium 143.9 140.6 Potassium 3.8 3.5 L Chloride 108 H 105 Carbon Dioxide 23 29 Anion Gap 13 7 BUN 7 6 L Creatinine 0.77 0.76 Est GFR ( Amer) > 60 > 60 Est GFR (Non-Af Amer) > 60 > 60 Glucose 121 H 126 H Calcium 8.5 7.6 L Magnesium Total Bilirubin AST ALT Alkaline Phosphatase Total Protein Albumin 12/13/16 12/13/16 12/13/16 00:20 00:29 04:34 WBC 9.3 RBC 4.22 L Hgb 12.5 L Hct 36.8 L MCV 87 MCH 29.5 MCHC 33.9 RDW 13.6 Plt Count 167 Seg Neutrophils % Not Reportable Lymphocytes % Not Reportable Monocytes % Not Reportable Eosinophils % Not Reportable Basophils % Not Reportable Absolute Neutrophils Not Reportable Absolute Lymphocytes Not Reportable Absolute Monocytes Not Reportable Absolute Eosinophils Not Reportable Absolute Basophils Not Reportable Carbonic Acid 1.37 H HCO3/H2CO3 Ratio 22:1 ABG pH 7.45 ABG pCO2 45.5 H ABG pO2 99.3 ABG HCO3 31.1 H ABG O2 Saturation 97.7 ABG Base Excess 6.3 FiO2 FLOW RATE 2 Sodium 142.8 Potassium 3.7 Chloride 107 Carbon Dioxide 26 Anion Gap 10 BUN 7 Creatinine 0.70 Est GFR ( Amer) > 60 Est GFR (Non-Af Amer) > 60 Glucose 126 H Calcium 7.7 L Magnesium Total Bilirubin AST ALT Alkaline Phosphatase Total Protein Albumin 12/13/16 12/13/16 04:34 06:45 WBC RBC Hgb Hct MCV MCH MCHC RDW Plt Count Seg Neutrophils % Lymphocytes % Monocytes % Eosinophils % Basophils % Absolute Neutrophils Absolute Lymphocytes Absolute Monocytes Absolute Eosinophils Absolute Basophils Carbonic Acid 1.35 HCO3/H2CO3 Ratio 23:1 ABG pH 7.46 H ABG pCO2 45.0 ABG pO2 82.4 ABG HCO3 31.3 H ABG O2 Saturation 96.6 ABG Base Excess 6.6 FiO2 FLOW RATE 2 Sodium 143.0 Potassium 3.5 L Chloride 105 Carbon Dioxide 30 Anion Gap 8 BUN 7 Creatinine 0.80 Est GFR ( Amer) > 60 Est GFR (Non-Af Amer) > 60 Glucose 123 H Calcium 7.7 L Magnesium 1.8 Total Bilirubin AST ALT Alkaline Phosphatase Total Protein Albumin 12/10/16 12/10/16 12/11/16 18:50 18:50 00:31 Creatine Kinase 74 70 CK-MB (CK-2) < 0.22 Troponin I < 0.012 12/11/16 12/11/16 12/11/16 00:31 07:00 07:00 Creatine Kinase 262 H CK-MB (CK-2) < 0.22 1.49 Troponin I < 0.012 < 0.012 Impressions: Head CT 12/10/16 15:03 IMPRESSION: No acute intracranial finding. Assessment & Plan - Diagnosis (1) Overdose of tricyclic antidepressants Qualifiers: Encounter type: initial encounter Injury intent: intentional self-harm Qualified Code(s): T43.012A - Poisoning by tricyclic antidepressants, intentional self-harm, initial encounter Is this a current diagnosis for this admission?: Yes (2) Sepsis Qualifiers: Sepsis type: Pneumococcus Qualified Code(s): A40.3 - Sepsis due to Streptococcus pneumoniae Is this a current diagnosis for this admission?: YesPlan: Patient with sepsis secondary to aspiration pneumonia which is currently growing gram-negative rods, gram-positive cocci, and strep pneumonia. Continue treatment with clindamycin and Zosyn. (3) Aspiration pneumonia due to inhalation of vomitus Is this a current diagnosis for this admission?: YesPlan: Patient on clindamycin day #3 and Zosyn day #2. Culture growing gram-negative rods, gram-positive cocci, and Streptococcus pneumoniae. Continue nebulized treatments and antibiotics. Oxygen as needed. Patient is currently requiring 4 L of oxygen. (4) Acute psychosis Is this a current diagnosis for this admission?: YesPlan: Increase patient's Thorazine to 50 mg IV every 8. He has tolerated initial dose well with repeat QRS being 98. Continue scheduled Valium. Begin Depakote 500 mg by mouth twice a day. Monitor EKG closely. (5) Clonidine overdose Qualifiers: Encounter type: initial encounter Injury intent: intentional self-harm Qualified Code(s): T46.5X2A - Poisoning by other antihypertensive drugs , intentional self-harm, initial encounter Is this a current diagnosis for this admission?: YesPlan: Currently off dopamine. (6) Intentional benzodiazepine overdose Qualifiers: Encounter type: subsequent encounter Qualified Code(s): T42.4X2D - Poisoning by benzodiazepines, intentional self-harm, subsequent encounter Is this a current diagnosis for this admission?: YesPlan: Supportive care. Avoid Romazicon. (7) Suicide attempt Is this a current diagnosis for this admission?: YesPlan: Patient is on IVC. I feel patient should be placed inpatient. (8) Tobacco abuse Is this a current diagnosis for this admission?: YesPlan: We'll place nicotine patch (9) Respiratory failure requiring intubation Is this a current diagnosis for this admission?: YesPlan: Remains extubated doing well. (10) Acute urinary retention Is this a current diagnosis for this admission?: YesPlan: Likely secondary to #1. Replace Maurice. Nursing reports over 700mL seen on bladder scan. (11) Acute hypoxemic respiratory failure Is this a current diagnosis for this admission?: YesPlan: This is secondary to pneumonia. Patient currently requiring 4 L of oxygen and saturating poorly. We'll give Lasix as patient is currently volume overloaded due to exogenous bicarbonate and fluid administration. - Time Time Spent with patient: 35 or more minutes Medications reviewed and adjusted accordingly: Yes Anticipated discharge: Other - Psychiatric facility - Inpatient Certification Based on my medical assessment, after consideration of the patient's comorbidities, presenting symptoms, or acuity I expect that the services needed warrant INPATIENT care.: Yes I certify that my determination is in accordance with my understanding of Medicare's requirements for reasonable and necessary INPATIENT services [42 CFR 412.3e].: Yes Medical Necessity: Need For IV Fluids, Need For Continuous Telemetry Monitoring , Need for IV Antibiotics Post Hospital Care: D/C [employer] Documentation
[2016-12-13] MEDS: CLINDAMYCIN 600 MG/D5W RTU 50 ML IV SCH (14:22)
[2016-12-13] MEDS ORDERED: DIVALPROEX SODIUM 500 MG TAB.SR.24H PO ONE ×2 (15:00→19:00)
--- NOTE | 2016-12-13 15:10 | EKG REPORT ---
SEVERITY:- ABNORMAL ECG - SINUS TACHYCARDIA INFERIOR Q WAVES, PROBABLY NORMAL VARIATION NONSPECIFIC T ABNORMALITIES, LATERAL LEADS : Confirmed by: Doc Webster MD 13-Dec-2016 15:09:29
--- NOTE | 2016-12-13 15:11 | EKG REPORT ---
SEVERITY:- ABNORMAL ECG - SINUS TACHYCARDIA PROBABLE LEFT ATRIAL ABNORMALITY NONSPECIFIC T ABNORMALITIES, DIFFUSE LEADS : Confirmed by: Doc Webster MD 13-Dec-2016 15:10:35
--- NOTE | 2016-12-13 18:20 | EKG REPORT ---
SEVERITY:- BORDERLINE ECG - SINUS RHYTHM INFERIOR Q WAVES, PROBABLY NORMAL VARIATION BORDERLINE T ABNORMALITIES, INFERIOR LEADS : Confirmed by: Doc Webster MD 13-Dec-2016 18:20:08
--- NOTE | 2016-12-13 20:26 | PDOC PROGRESS REPORT ---
Subjective Progress Note for:: 12/13/16 Subjective:: combative confused Physical Exam Vital Signs: Temp Pulse Resp BP Pulse Ox 99.5 F 111 H 20 114/81 100 12/13/16 07:45 12/13/16 12:00 12/13/16 12:00 12/13/16 09:42 12/13/16 12:00 Intake & Output 12/12/16 12/13/16 12/14/16 06:59 06:59 06:59 Intake Total 5490 7605 720 Output Total 6022 4445 1999 Balance 445 5557 -8898 Weight 84.3 kg 84.2 kg General appearance: PRESENT: no acute distress, disheveled, well-developed, well -nourished Head exam: PRESENT: atraumatic, normocephalic Eye exam: PRESENT: conjunctiva pale, EOMI Mouth exam: PRESENT: neck supple Neck exam: ABSENT: carotid bruit, JVD, lymphadenopathy, thyromegaly Respiratory exam: PRESENT: crackles, decreased breath sounds, prolonged expiratory phas, rhonchi, symmetrical, unlabored Cardiovascular exam: PRESENT: RRR, +S1, +S2 GI/Abdominal exam: PRESENT: normal bowel sounds, soft. ABSENT: distended, guarding, mass, organolmegaly, rebound, tenderness Rectal exam: PRESENT: deferred Gentrourinary exam: PRESENT: indwelling catheter Musculoskeletal exam: PRESENT: normal inspection Neurological exam: PRESENT: awake Skin exam: PRESENT: dry, warm Results Laboratory Results: 12/13/16 04:34 12/13/16 11:40 12/12/16 12/12/16 12/12/16 17:26 20:10 21:57 WBC RBC Hgb Hct MCV MCH MCHC RDW Plt Count Seg Neutrophils % Lymphocytes % Monocytes % Eosinophils % Basophils % Absolute Neutrophils Absolute Lymphocytes Absolute Monocytes Absolute Eosinophils Absolute Basophils Carbonic Acid 1.28 HCO3/H2CO3 Ratio 23:1 ABG pH 7.47 H ABG pCO2 42.5 ABG pO2 103.5 H ABG HCO3 29.9 H ABG O2 Saturation 98.0 ABG Base Excess 5.6 FiO2 2L Sodium 143.9 140.6 Potassium 3.8 3.5 L Chloride 108 H 105 Carbon Dioxide 23 29 Anion Gap 13 7 BUN 7 6 L Creatinine 0.77 0.76 Est GFR ( Amer) > 60 > 60 Est GFR (Non-Af Amer) > 60 > 60 Glucose 121 H 126 H Calcium 8.5 7.6 L Magnesium 12/13/16 12/13/16 12/13/16 00:20 00:29 04:34 WBC 9.3 RBC 4.22 L Hgb 12.5 L Hct 36.8 L MCV 87 MCH 29.5 MCHC 33.9 RDW 13.6 Plt Count 167 Seg Neutrophils % Not Reportable Lymphocytes % Not Reportable Monocytes % Not Reportable Eosinophils % Not Reportable Basophils % Not Reportable Absolute Neutrophils Not Reportable Absolute Lymphocytes Not Reportable Absolute Monocytes Not Reportable Absolute Eosinophils Not Reportable Absolute Basophils Not Reportable Carbonic Acid 1.37 H HCO3/H2CO3 Ratio 22:1 ABG pH 7.45 ABG pCO2 45.5 H ABG pO2 99.3 ABG HCO3 31.1 H ABG O2 Saturation 97.7 ABG Base Excess 6.3 FiO2 FLOW RATE 2 Sodium 142.8 Potassium 3.7 Chloride 107 Carbon Dioxide 26 Anion Gap 10 BUN 7 Creatinine 0.70 Est GFR ( Amer) > 60 Est GFR (Non-Af Amer) > 60 Glucose 126 H Calcium 7.7 L Magnesium 12/13/16 12/13/16 12/13/16 04:34 06:45 11:40 WBC RBC Hgb Hct MCV MCH MCHC RDW Plt Count Seg Neutrophils % Lymphocytes % Monocytes % Eosinophils % Basophils % Absolute Neutrophils Absolute Lymphocytes Absolute Monocytes Absolute Eosinophils Absolute Basophils Carbonic Acid 1.35 HCO3/H2CO3 Ratio 23:1 ABG pH 7.46 H ABG pCO2 45.0 ABG pO2 82.4 ABG HCO3 31.3 H ABG O2 Saturation 96.6 ABG Base Excess 6.6 FiO2 FLOW RATE 2 Sodium 143.0 138.1 Potassium 3.5 L 3.3 L Chloride 105 103 Carbon Dioxide 30 26 Anion Gap 8 9 BUN 7 6 L Creatinine 0.80 0.83 Est GFR ( Amer) > 60 > 60 Est GFR (Non-Af Amer) > 60 > 60 Glucose 123 H 112 H Calcium 7.7 L 8.3 L Magnesium 1.8 12/11/16 15:10 Tracheal Aspirate Gram Stain - Final 12/10/16 12/10/16 12/11/16 18:50 18:50 00:31 Creatine Kinase 74 70 CK-MB (CK-2) < 0.22 Troponin I < 0.012 12/11/16 12/11/16 12/11/16 00:31 07:00 07:00 Creatine Kinase 262 H CK-MB (CK-2) < 0.22 1.49 Troponin I < 0.012 < 0.012 Impressions: Head CT 12/10/16 15:03 IMPRESSION: No acute intracranial finding. Chest X-Ray 12/13/16 06:00 IMPRESSION: Interval worsened mixed moderate interstitial and airspace opacities bilaterally. Differential diagnosis includes pulmonary edema and multifocal pneumonia. Assessment & Plan - Diagnosis (1) Intentional benzodiazepine overdose Qualifiers: Encounter type: subsequent encounter Qualified Code(s): T42.4X2D - Poisoning by benzodiazepines, intentional self-harm, subsequent encounter Is this a current diagnosis for this admission?: Yes (2) Overdose of tricyclic antidepressants Qualifiers: Encounter type: initial encounter Injury intent: intentional self-harm Qualified Code(s): T43.012A - Poisoning by tricyclic antidepressants, intentional self-harm, initial encounter Is this a current diagnosis for this admission?: Yes (3) Respiratory failure requiring intubation Is this a current diagnosis for this admission?: NoPlan: 12/11/16 15:10 Gram Stain - Final Tracheal Aspirate Sputum Culture - Preliminary Klebsiella Oxytoca Gram Positive Cocci Clusters Streptococcus Pneumoniae Normal Meggan (4) Tobacco abuse Is this a current diagnosis for this admission?: Yes - Time Critical Time spent with patient: 25-34 minutes
[2016-12-13] MEDS: CHLORPROMAZINE HCL INJ 25 MG/1 ML AMPULE IV SCH (23:08)
[2016-12-13] MEDS: THIAMINE HCL 100 MG in NORMAL SALINE 50 ML IV SCH (23:08)
[2016-12-14] MEDS: CLINDAMYCIN 600 MG/D5W RTU 50 ML IV SCH ×4 (00:03→21:12)
[2016-12-14] MEDS: PIPERACILLIN SODIUM/TAZOBACTAM 3.375 GM in NORMAL SALINE 100 ML IV SCH ×5 (01:30→23:05)
[2016-12-14] MEDS: LORAZEPAM INJ 2 MG/1 ML VIAL IV PRN ×4 (01:50→19:43)
[2016-12-14 03:57] LABS: ABSOLUTE BASOPHILS # (AUTO) 0.1 10^3/uL (0.0-0.2); ABSOLUTE EOSINOPHILS # (AUTO) 0.2 10^3/uL (0.0-0.6); ABSOLUTE LYMPHOCYTES (AUTO) 1.1 10^3/uL (0.5-4.7); ABSOLUTE MONOCYTES (AUTO) 0.6 10^3/uL (0.1-1.4); ABSOLUTE NEUT (AUTO) 5.7 10^3/uL (1.7-8.2); BASOPHILS % (AUTO) 0.7 % (0-2); EOSINOPHILS % (AUTO) 2.8 % (0-6); HEMATOCRIT 34.8 % (37.9-51.0); HEMOGLOBIN 11.9 g/dL (13.5-17.0); HGB HCT DIFFERENCE 0.9; LYMPHOCYTES % (AUTO) 14.1 % (13-45); MEAN CORPUSCULAR HEMOGLOBIN 29.5 pg (27.0-33.4); MEAN CORPUSCULAR HGB CONC 34.3 g/dL (32.0-36.0); MEAN CORPUSCULAR VOLUME 86 fl (80-97); MONOCYTES % (AUTO) 7.9 % (3-13); RED BLOOD COUNT 4.04 10^6/uL (4.35-5.55); RED CELL DISTRIBUTION WIDTH 13.3 % (11.5-14.0); SEGMENTED NEUTROPHILS % (AUTO) 74.5 % (42-78); WHITE BLOOD COUNT 7.7 10^3/uL (4.0-10.5)
[2016-12-14 04:16] LABS: ANION GAP 7 (5-19); BLOOD UREA NITROGEN 7 mg/dL (7-20); CALCIUM 8.7 mg/dL (8.4-10.2); CARBON DIOXIDE 23 mmol/L (22-30); CHLORIDE 108 mmol/L (98-107); CREATININE RESULT 0.78 mg/dL (0.52-1.25); GLUCOSE 102 mg/dL (75-110); SODIUM 138.4 mmol/L (137-145); TRIGLYCERIDES 132 mg/dL (<150)
[2016-12-14] MEDS: DIAZEPAM 5 MG TABLET PO SCH ×4 (05:35→23:06)
[2016-12-14] MEDS: CHLORPROMAZINE HCL INJ 25 MG/1 ML AMPULE IV SCH ×3 (05:36→21:13)
[2016-12-14] MEDS: HEPARIN SOD (PORCINE) 5,000 UNIT/ML 1 ML SYRINGE SUBCUT SCH ×3 (05:36→21:12)
[2016-12-14] MEDS: KETOROLAC TROMETHAMINE INJ/PF 30 MG/1 ML SDV IV PRN (07:57)
--- NOTE | 2016-12-14 09:04 | EKG REPORT ---
SEVERITY:- ABNORMAL ECG - SINUS RHYTHM PROBABLE LEFT ATRIAL ABNORMALITY INFERIOR Q WAVES, PROBABLY NORMAL VARIATION QTC PROLOGATION 460 MS (ULN FOR MALES ADULTS 450MS). : Confirmed by: Doc Webster MD 14-Dec-2016 09:04:05
[2016-12-14] MEDS: DIVALPROEX SODIUM 500 MG TAB.SR.24H PO SCH ×2 (09:06→17:33)
--- NOTE | 2016-12-14 09:08 | EKG REPORT ---
SEVERITY:- ABNORMAL ECG - SINUS RHYTHM PROBABLE LEFT ATRIAL ABNORMALITY INFERIOR Q WAVES, PROBABLY NORMAL VARIATION BORDERLINE T WAVE ABNORMALITIES INFEROLATERAL LEADS. QTC 438 MS IS NORMAL. : Confirmed by: Doc Webster MD 14-Dec-2016 09:07:54
[2016-12-14] MEDS ORDERED: FUROSEMIDE INJ/PF 20 MG/2 ML SDV IV ONE (09:15)
[2016-12-14] MEDS ORDERED: CHLORPROMAZINE HCL INJ 25 MG/1 ML AMPULE IV ONE ×2 (10:00→10:12)
[2016-12-14] MEDS ORDERED: DIAZEPAM INJ 10 MG/2 ML DISP.SYRIN IV ONE (10:13)
[2016-12-14] MEDS ORDERED: ZIPRASIDONE MESYLATE INJ/PF 20 MG SDV IM ONE (10:14)
--- NOTE | 2016-12-14 15:25 | PDOC PROGRESS REPORT ---
Subjective Progress Note for:: 12/14/16 Subjective:: Patient seen earlier today at morning rounds. Total review of systems is difficult to obtain secondary to patient's insistence on wanting to leave and his affect. Physical Exam Vital Signs: Temp Pulse Resp BP Pulse Ox 97.3 F 83 21 H 133/90 H 97 12/14/16 14:15 12/14/16 12:09 12/14/16 14:15 12/14/16 13:42 12/14/16 14:15 Intake & Output 12/13/16 12/14/16 12/15/16 06:59 06:59 06:59 Intake Total 8150 5774 200 Output Total 4471 4210 1425 Balance 8165 -236 1228 Weight 84.2 kg 82.6 kg Exam: General: Awake alert and oriented x3, no acute respiratory distress HEENT: AT/NC, PERRL, EOMI, oropharynx is moist, pink, no scleral icterus, no conjunctival injection Neck: No JVD, trachea midline Chest: rhonchi right lower lobe CV: Regular rate and rhythm, normal S1 and S2, no murmur, rub, or gallop Abdomen: Soft, nontender to palpation, nondistended, active bowel sounds; no rebound, rigidity, or guarding Extremities: No cyanosis, clubbing; 1+ edema Neuro: Cranial nerves II through XII are grossly intact without focal deficits Psych: Labile, pseudo-tearful Results Laboratory Results: 12/14/16 03:45 12/14/16 03:45 12/14/16 12/14/16 03:45 03:45 WBC 7.7 RBC 4.04 L Hgb 11.9 L Hct 34.8 L MCV 86 MCH 29.5 MCHC 34.3 RDW 13.3 Plt Count 224 Seg Neutrophils % 74.5 Lymphocytes % 14.1 Monocytes % 7.9 Eosinophils % 2.8 Basophils % 0.7 Absolute Neutrophils 5.7 Absolute Lymphocytes 1.1 Absolute Monocytes 0.6 Absolute Eosinophils 0.2 Absolute Basophils 0.1 Sodium 138.4 Potassium 4.0 Chloride 108 H Carbon Dioxide 23 Anion Gap 7 BUN 7 Creatinine 0.78 Est GFR ( Amer) > 60 Est GFR (Non-Af Amer) > 60 Glucose 102 Calcium 8.7 Triglycerides 132 12/11/16 15:10 Tracheal Aspirate Gram Stain - Final 12/10/16 12/10/16 12/11/16 18:50 18:50 00:31 Creatine Kinase 74 70 CK-MB (CK-2) < 0.22 Troponin I < 0.012 12/11/16 12/11/16 12/11/16 00:31 07:00 07:00 Creatine Kinase 262 H CK-MB (CK-2) < 0.22 1.49 Troponin I < 0.012 < 0.012 Impressions: Head CT 12/10/16 15:03 IMPRESSION: No acute intracranial finding. Chest X-Ray 12/14/16 06:00 IMPRESSION: Persistent bilateral perihilar ground-glass opacities, may represent pulmonary edema and/or pneumonia. Mild cardiomegaly. Assessment & Plan - Diagnosis (1) Acute psychosis Is this a current diagnosis for this admission?: YesPlan: Increase patient's Thorazine to 100 mg IV every 8. Patient also given trial of Geodon with good results. Repeat EKG after administration of Geodon and increased Thorazine reveals a QRS of 96 and QTC of 438. Patient continued to require 4-point restraints and have re-upgraded patient to ICU status. (2) Overdose of tricyclic antidepressants Qualifiers: Encounter type: subsequent encounter Injury intent: intentional self- harm Qualified Code(s): T43.012D - Poisoning by tricyclic antidepressants , intentional self-harm, subsequent encounter Is this a current diagnosis for this admission?: YesPlan: Patient has been off bicarbonate drip since last night. He is much improved from this aspect. Repeat EKG reveals a QRS of 94. Patient has been placed on seizure precautions. He is IVC'd. (3) Sepsis Qualifiers: Sepsis type: Pneumococcus Qualified Code(s): A40.3 - Sepsis due to Streptococcus pneumoniae Is this a current diagnosis for this admission?: YesPlan: Patient with sepsis secondary to aspiration pneumonia which is currently growing Klebsiella oxytoca, gram-positive cocci, and strep pneumonia. Continue treatment with clindamycin and Zosyn. (4) Aspiration pneumonia due to inhalation of vomitus Is this a current diagnosis for this admission?: YesPlan: Patient on clindamycin day #4 and Zosyn day #3. Culture growing Klebsiella oxytoca, gram-positive cocci, and Streptococcus pneumoniae. Continue nebulized treatments and antibiotics. Oxygen as needed. (5) Clonidine overdose Qualifiers: Encounter type: initial encounter Injury intent: intentional self-harm Qualified Code(s): T46.5X2A - Poisoning by other antihypertensive drugs , intentional self-harm, initial encounter Is this a current diagnosis for this admission?: YesPlan: Resolved (6) Intentional benzodiazepine overdose Qualifiers: Encounter type: subsequent encounter Qualified Code(s): T42.4X2D - Poisoning by benzodiazepines, intentional self-harm, subsequent encounter Is this a current diagnosis for this admission?: Yes (7) Suicide attempt Is this a current diagnosis for this admission?: Yes (8) Tobacco abuse Is this a current diagnosis for this admission?: Yes (9) Respiratory failure requiring intubation Is this a current diagnosis for this admission?: No (10) Acute urinary retention Is this a current diagnosis for this admission?: YesPlan: Likely secondary to #2. We'll remove Maurice beginning tomorrow. (11) Acute hypoxemic respiratory failure Is this a current diagnosis for this admission?: Yes - Time Critical Time spent with patient: 35 or more minutes Medications reviewed and adjusted accordingly: Yes
--- NOTE | 2016-12-14 16:28 | EKG REPORT ---
SEVERITY:- ABNORMAL ECG - SINUS RHYTHM PROBABLE LEFT VENTRICULAR HYPERTROPHY INFERIOR Q WAVES, PROBABLY NORMAL VARIATION QTC IS MEASURED AND CORRECTD BY BAZETT @ 461 MS = PROLONGED. : Confirmed by: Doc Webster MD 14-Dec-2016 16:27:50
[2016-12-14] MEDS: THIAMINE HCL 100 MG in NORMAL SALINE 50 ML IV SCH (21:13)
[2016-12-15] MEDS: LORAZEPAM INJ 2 MG/1 ML VIAL IV PRN ×2 (01:11→03:51)
[2016-12-15] MEDS: PHENOL/SODIUM PHENOLATE 100 SPRAY/177 ML BOTTLE PO PRN ×2 (04:24→12:51)
[2016-12-15] MEDS: HEPARIN SOD (PORCINE) 5,000 UNIT/ML 1 ML SYRINGE SUBCUT SCH ×3 (05:12→21:25)
[2016-12-15] MEDS: CLINDAMYCIN 600 MG/D5W RTU 50 ML IV SCH (05:13)
[2016-12-15] MEDS: DIAZEPAM 5 MG TABLET PO SCH ×3 (05:13→21:25)
[2016-12-15] MEDS: PIPERACILLIN SODIUM/TAZOBACTAM 3.375 GM in NORMAL SALINE 100 ML IV SCH (05:14)
[2016-12-15] MEDS: CHLORPROMAZINE HCL INJ 25 MG/1 ML AMPULE IV SCH (05:16)
[2016-12-15 06:27] LABS: ANION GAP 10 (5-19); BLOOD UREA NITROGEN 14 mg/dL (7-20); CALCIUM 9.2 mg/dL (8.4-10.2); CARBON DIOXIDE 23 mmol/L (22-30); CHLORIDE 106 mmol/L (98-107); CREATININE RESULT 0.72 mg/dL (0.52-1.25); POTASSIUM 3.8 mmol/L (3.6-5.0); SODIUM 138.6 mmol/L (137-145)
[2016-12-15 06:28] LABS: GLUCOSE 100 mg/dL (75-110)
[2016-12-15] MEDS: DIVALPROEX SODIUM 500 MG TAB.SR.24H PO SCH ×2 (09:45→21:25)
--- NOTE | 2016-12-15 12:41 | PDOC PROGRESS REPORT ---
Subjective Progress Note for:: 12/15/16 Subjective:: Patient is resting comfortably. He is easily arousable and oriented. He has no complaints but states he would like to go back to sleep. Physical Exam Vital Signs: Temp Pulse Resp BP Pulse Ox 97.3 F 99 0 L 129/94 H 96 12/15/16 07:00 12/14/16 20:00 12/15/16 07:00 12/15/16 06:48 12/15/16 07:00 Intake & Output 12/14/16 12/15/16 12/16/16 06:59 06:59 06:59 Intake Total 5774 1965 Output Total 6600 7525 Balance -826 -730 Weight 82.6 kg 79.7 kg Exam: General: Resting comfortably, easily aroused, oriented 3, no acute respiratory distress HEENT: AT/NC, PERRL, EOMI, oropharynx is moist, pink, no scleral icterus, no conjunctival injection Neck: No JVD, trachea midline Chest: Clear to auscultation bilaterally CV: Regular rate and rhythm, normal S1 and S2, no murmur, rub, or gallop Abdomen: Soft, nontender to palpation, nondistended, active bowel sounds; no rebound, rigidity, or guarding Extremities: No cyanosis, clubbing; trace edema Neuro: Cranial nerves II through XII are grossly intact without focal deficits Psych: Calm, appropriate mood and affect Results Laboratory Results: 12/14/16 03:45 12/15/16 05:57 12/15/16 05:57 Sodium 138.6 Potassium 3.8 Chloride 106 Carbon Dioxide 23 Anion Gap 10 BUN 14 Creatinine 0.72 Est GFR ( Amer) > 60 Est GFR (Non-Af Amer) > 60 Glucose 100 Calcium 9.2 12/11/16 15:10 Tracheal Aspirate Gram Stain - Final 12/10/16 12/10/16 12/11/16 18:50 18:50 00:31 Creatine Kinase 74 70 CK-MB (CK-2) < 0.22 Troponin I < 0.012 12/11/16 12/11/16 12/11/16 00:31 07:00 07:00 Creatine Kinase 262 H CK-MB (CK-2) < 0.22 1.49 Troponin I < 0.012 < 0.012 Impressions: Head CT 12/10/16 15:03 IMPRESSION: No acute intracranial finding. Chest X-Ray 12/14/16 06:00 IMPRESSION: Persistent bilateral perihilar ground-glass opacities, may represent pulmonary edema and/or pneumonia. Mild cardiomegaly. Assessment & Plan - Diagnosis (1) Acute psychosis Is this a current diagnosis for this admission?: YesPlan: Transition patient's Thorazine to oral. Initiated patient on 10 mg of Zyprexa po QHS. Patient is no longer requiring 4 point restraints and has been downgraded to the floor. (2) Overdose of tricyclic antidepressants Qualifiers: Encounter type: subsequent encounter Injury intent: intentional self- harm Qualified Code(s): T43.012D - Poisoning by tricyclic antidepressants , intentional self-harm, subsequent encounter Is this a current diagnosis for this admission?: YesPlan: Patient has been off bicarbonate drip for the last 48 hours. He is much improved from this aspect. EKG reveals a QRS of 92. Patient has been placed on seizure precautions. He is IVC'd. (3) Sepsis Qualifiers: Sepsis type: Pneumococcus Qualified Code(s): A40.3 - Sepsis due to Streptococcus pneumoniae Is this a current diagnosis for this admission?: YesPlan: Patient with sepsis secondary to aspiration pneumonia which is currently growing Klebsiella oxytoca, staph aureus, and strep pneumonia. Patient to be transitioned to Augmentin as susceptibilities are currently available and his organisms are sensitive to this. (4) Aspiration pneumonia due to inhalation of vomitus Is this a current diagnosis for this admission?: YesPlan: Patient had been on clindamycin and Zosyn for 4 days. Patient now initiated on Augmentin for 6 days. Culture growing Klebsiella oxytoca, Staphylococcus aureus, and Streptococcus pneumoniae. Continue nebulized treatments and antibiotics. Oxygen as needed. (5) Clonidine overdose Qualifiers: Encounter type: initial encounter Injury intent: intentional self-harm Qualified Code(s): T46.5X2A - Poisoning by other antihypertensive drugs , intentional self-harm, initial encounter Is this a current diagnosis for this admission?: YesPlan: Resolved (6) Intentional benzodiazepine overdose Qualifiers: Encounter type: subsequent encounter Qualified Code(s): T42.4X2D - Poisoning by benzodiazepines, intentional self-harm, subsequent encounter Is this a current diagnosis for this admission?: YesPlan: Supportive care. Avoid Romazicon. Will transition Ativan to be given seizure only. (7) Suicide attempt Is this a current diagnosis for this admission?: YesPlan: Patient is on IVC. I feel patient should be placed inpatient. Psychology agrees. (8) Tobacco abuse Is this a current diagnosis for this admission?: YesPlan: Will place nicotine patch (9) Respiratory failure requiring intubation Is this a current diagnosis for this admission?: YesPlan: Remains extubated doing well. (10) Acute urinary retention Is this a current diagnosis for this admission?: YesPlan: Likely secondary to #2. Remove Maurice. (11) Acute hypoxemic respiratory failure Is this a current diagnosis for this admission?: YesPlan: This is secondary to pneumonia. - Time Time Spent with patient: 25-34 minutes Medications reviewed and adjusted accordingly: Yes Anticipated discharge: Other - Inpatient psychiatry
[2016-12-15] MEDS ORDERED: LORATADINE 10 MG TABLET PO ONE (13:00)
[2016-12-15] MEDS: GUAIFENESIN SYRP 200 MG/10 ML UDC PO PRN (13:03)
[2016-12-15] MEDS: CHLORPROMAZINE HCL 50 MG TABLET PO SCH ×2 (14:58→21:25)
[2016-12-15] MEDS: AMOXICILLIN TR/POT CLAVULANATE 500-125 MG TAB PO SCH ×2 (14:59→21:25)
[2016-12-15] MEDS: SODIUM CHLORIDE NASAL SPRAY 44 ML NASL SCH ×2 (15:04→21:25)
--- NOTE | 2016-12-15 18:10 | PSYCHOLOGICAL NOTE ---
<ILDEFONSO HUGHES - Last Filed: 12/15/16 18:04> Psych Note - Psych Note Psych Note: Patient is a 31 year old male who has been admitted to [facility] due to intentional overdose of prescription pills. Patient's EMR has been reviewed to determine continued eligibility for IVC status and referral for inpatient psychiatric services. Dr. Arceo and Hospitalist spoke directly regarding the care and management of this patient. Will continue to seek inpatient psychiatric care. Will track. <JASMEET ARCEO - Last Filed: 12/21/16 13:36> Psych Note - Psych Note Psych Note: Spoke with Dr. Marquez regarding Patient and his current presentation. Patient's presentation appears psychotic and generally personality and behaviorally based vs. depression or anxiety. Patient has an ongoing history of substance abuse and the use of manipulation to obtain the addictive medications of his choice. Dr. Marquez discussed psychotropic medications and her desire for patient to go to an inpatient psychiatric facility. Advised Dr. Marquez he would be reassessed for inpatient criteria upon medical stabilization.
[2016-12-15] MEDS: OLANZAPINE 5 MG TABLET PO SCH (21:25)
--- NOTE | 2016-12-15 21:29 | EKG REPORT ---
SEVERITY:- BORDERLINE ECG - SINUS TACHYCARDIA BORDERLINE T WAVE ABNORMALITIES : Confirmed by: Kai Rutledge 15-Dec-2016 21:27:47
[2016-12-16 04:51] LABS: ABSOLUTE BASOPHILS # (AUTO) 0.1 10^3/uL (0.0-0.2); ABSOLUTE EOSINOPHILS # (AUTO) 0.2 10^3/uL (0.0-0.6); ABSOLUTE LYMPHOCYTES (AUTO) 1.4 10^3/uL (0.5-4.7); ABSOLUTE MONOCYTES (AUTO) 0.8 10^3/uL (0.1-1.4); BASOPHILS % (AUTO) 0.8 % (0-2); EOSINOPHILS % (AUTO) 3.2 % (0-6); HEMATOCRIT 34.9 % (37.9-51.0); HEMOGLOBIN 12.1 g/dL (13.5-17.0); HGB HCT DIFFERENCE 1.4; LYMPHOCYTES % (AUTO) 22.1 % (13-45); MEAN CORPUSCULAR HEMOGLOBIN 29.8 pg (27.0-33.4); MEAN CORPUSCULAR HGB CONC 34.8 g/dL (32.0-36.0); MEAN CORPUSCULAR VOLUME 86 fl (80-97); MONOCYTES % (AUTO) 12.2 % (3-13); RED BLOOD COUNT 4.08 10^6/uL (4.35-5.55); RED CELL DISTRIBUTION WIDTH 13.2 % (11.5-14.0); SEGMENTED NEUTROPHILS % (AUTO) 61.7 % (42-78); WHITE BLOOD COUNT 6.5 10^3/uL (4.0-10.5)
[2016-12-16 05:13] LABS: ANION GAP 9 (5-19); BLOOD UREA NITROGEN 12 mg/dL (7-20); CARBON DIOXIDE 27 mmol/L (22-30); CHLORIDE 104 mmol/L (98-107); CREATININE RESULT 0.74 mg/dL (0.52-1.25); GLUCOSE 102 mg/dL (75-110); MAGNESIUM 2.1 mg/dL (1.6-2.3); POTASSIUM 3.6 mmol/L (3.6-5.0); SODIUM 139.8 mmol/L (137-145)
[2016-12-16] MEDS: PHENOL/SODIUM PHENOLATE 100 SPRAY/177 ML BOTTLE PO PRN ×2 (05:49→10:37)
[2016-12-16] MEDS: DIAZEPAM 5 MG TABLET PO SCH ×2 (05:49→21:32)
[2016-12-16] MEDS: HEPARIN SOD (PORCINE) 5,000 UNIT/ML 1 ML SYRINGE SUBCUT SCH ×3 (05:49→21:42)
[2016-12-16] MEDS: AMOXICILLIN TR/POT CLAVULANATE 500-125 MG TAB PO SCH ×3 (05:49→21:33)
[2016-12-16] MEDS: CHLORPROMAZINE HCL 50 MG TABLET PO SCH ×3 (05:49→21:33)
[2016-12-16] MEDS ORDERED: POTASSIUM CHLORIDE 10 MEQ TABLET.SA PO ONE (08:30)
[2016-12-16] MEDS: LORATADINE 10 MG TABLET PO SCH (09:13)
[2016-12-16] MEDS: DIVALPROEX SODIUM 500 MG TAB.SR.24H PO SCH ×2 (09:13→21:33)
[2016-12-16] MEDS: SODIUM CHLORIDE NASAL SPRAY 44 ML NASL SCH ×4 (09:14→21:43)
--- NOTE | 2016-12-16 14:39 | PDOC PROGRESS REPORT ---
Subjective Progress Note for:: 12/16/16 Subjective:: Patient is resting comfortably. Patient denies chest pain, shortness of breath, abdominal pain, nausea, vomiting , fevers, chills, diarrhea, constipation, headache, new onset weakness. Physical Exam Vital Signs: Temp Pulse Resp BP Pulse Ox 98.2 F 95 19 93/44 L 92 12/16/16 00:53 12/16/16 00:53 12/16/16 00:53 12/16/16 00:53 12/16/16 00:53 Intake & Output 12/15/16 12/16/16 12/17/16 06:59 06:59 06:59 Intake Total 1965 405 Output Total 2695 365 Balance -730 40 Weight 79.7 kg 80.2 kg Exam: General: Resting comfortably, easily aroused, oriented 3, no acute respiratory distress HEENT: AT/NC, PERRL, EOMI, oropharynx is moist, pink, no scleral icterus, no conjunctival injection Neck: No JVD, trachea midline Chest: Clear to auscultation bilaterally CV: Regular rate and rhythm, normal S1 and S2, no murmur, rub, or gallop Abdomen: Soft, nontender to palpation, nondistended, active bowel sounds; no rebound, rigidity, or guarding Extremities: No cyanosis, clubbing; trace edema Neuro: Cranial nerves II through XII are grossly intact without focal deficits Psych: Calm, appropriate mood and affect Results Laboratory Results: 12/16/16 03:56 12/16/16 03:56 12/16/16 12/16/16 03:56 03:56 WBC 6.5 RBC 4.08 L Hgb 12.1 L Hct 34.9 L MCV 86 MCH 29.8 MCHC 34.8 RDW 13.2 Plt Count 296 Seg Neutrophils % 61.7 Lymphocytes % 22.1 Monocytes % 12.2 Eosinophils % 3.2 Basophils % 0.8 Absolute Neutrophils 4.0 Absolute Lymphocytes 1.4 Absolute Monocytes 0.8 Absolute Eosinophils 0.2 Absolute Basophils 0.1 Sodium 139.8 Potassium 3.6 Chloride 104 Carbon Dioxide 27 Anion Gap 9 BUN 12 Creatinine 0.74 Est GFR ( Amer) > 60 Est GFR (Non-Af Amer) > 60 Glucose 102 Calcium 9.0 Magnesium 2.1 12/11/16 15:10 Tracheal Aspirate Gram Stain - Final 12/11/16 15:10 Tracheal Aspirate Sputum Culture - Final Klebsiella Oxytoca Staphylococcus Aureus Streptococcus Pneumoniae Normal Meggan 12/10/16 12/10/16 12/11/16 18:50 18:50 00:31 Creatine Kinase 74 70 CK-MB (CK-2) < 0.22 Troponin I < 0.012 12/11/16 12/11/16 12/11/16 00:31 07:00 07:00 Creatine Kinase 262 H CK-MB (CK-2) < 0.22 1.49 Troponin I < 0.012 < 0.012 Impressions: Head CT 12/10/16 15:03 IMPRESSION: No acute intracranial finding. Chest X-Ray 12/14/16 06:00 IMPRESSION: Persistent bilateral perihilar ground-glass opacities, may represent pulmonary edema and/or pneumonia. Mild cardiomegaly. Assessment & Plan - Diagnosis (1) Acute psychosis Is this a current diagnosis for this admission?: YesPlan: Decrease Thorazine to 50 by mouth every 8. Initiated patient on 10 mg of Zyprexa po QHS. Patient is no longer requiring 4 point restraints and has been downgraded to the floor. (2) Overdose of tricyclic antidepressants Qualifiers: Encounter type: subsequent encounter Injury intent: intentional self- harm Qualified Code(s): T43.012D - Poisoning by tricyclic antidepressants , intentional self-harm, subsequent encounter Is this a current diagnosis for this admission?: YesPlan: Resolved. Patient is medically stable for transfer to a psychiatric facility. Patient has been off bicarbonate drip for more than 48 hours. He is much improved from this aspect. EKG reveals a QRS of 92. Patient has been placed on seizure precautions. He is IVC'd. (3) Sepsis Qualifiers: Sepsis type: Pneumococcus Qualified Code(s): A40.3 - Sepsis due to Streptococcus pneumoniae Is this a current diagnosis for this admission?: YesPlan: Patient with sepsis secondary to aspiration pneumonia which is currently growing Klebsiella oxytoca, staph aureus, and strep pneumonia. Patient to be transitioned to Augmentin as susceptibilities are currently available and his organisms are sensitive to this. (4) Aspiration pneumonia due to inhalation of vomitus Is this a current diagnosis for this admission?: YesPlan: Patient had been on clindamycin and Zosyn for 4 days. Patient now initiated on Augmentin for 5 days. Patient is on day 5 of 10 of total therapy Culture growing Klebsiella oxytoca, Staphylococcus aureus, and Streptococcus pneumoniae. Continue nebulized treatments and antibiotics. Oxygen as needed. (5) Clonidine overdose Qualifiers: Encounter type: initial encounter Injury intent: intentional self-harm Qualified Code(s): T46.5X2A - Poisoning by other antihypertensive drugs , intentional self-harm, initial encounter Is this a current diagnosis for this admission?: Yes (6) Intentional benzodiazepine overdose Qualifiers: Encounter type: subsequent encounter Qualified Code(s): T42.4X2D - Poisoning by benzodiazepines, intentional self-harm, subsequent encounter Is this a current diagnosis for this admission?: Yes (7) Suicide attempt Is this a current diagnosis for this admission?: Yes (8) Tobacco abuse Is this a current diagnosis for this admission?: Yes (9) Respiratory failure requiring intubation Is this a current diagnosis for this admission?: Yes (10) Acute urinary retention Is this a current diagnosis for this admission?: YesPlan: Likely secondary to #2. Resolved (11) Acute hypoxemic respiratory failure Is this a current diagnosis for this admission?: Yes - Time Time Spent with patient: 25-34 minutes Medications reviewed and adjusted accordingly: Yes Anticipated discharge: Other Within: when bed available
[2016-12-16] MEDS: GUAIFENESIN SYRP 200 MG/10 ML UDC PO PRN (20:25)
[2016-12-16] MEDS: OLANZAPINE 5 MG TABLET PO SCH (21:33)
[2016-12-17] MEDS: CHLORPROMAZINE HCL 50 MG TABLET PO SCH ×3 (06:34→22:36)
[2016-12-17] MEDS: GUAIFENESIN SYRP 200 MG/10 ML UDC PO PRN (06:34)
[2016-12-17] MEDS: AMOXICILLIN TR/POT CLAVULANATE 500-125 MG TAB PO SCH ×3 (06:34→22:36)
[2016-12-17 06:52] LABS: ANION GAP 7 (5-19); BLOOD UREA NITROGEN 10 mg/dL (7-20); CALCIUM 9.4 mg/dL (8.4-10.2); CARBON DIOXIDE 27 mmol/L (22-30); CHLORIDE 106 mmol/L (98-107); CREATININE RESULT 0.69 mg/dL (0.52-1.25); GLUCOSE 97 mg/dL (75-110); POTASSIUM 4.2 mmol/L (3.6-5.0); SODIUM 140.4 mmol/L (137-145)
[2016-12-17] MEDS: HEPARIN SOD (PORCINE) 5,000 UNIT/ML 1 ML SYRINGE SUBCUT SCH ×3 (08:14→22:37)
[2016-12-17] MEDS: SODIUM CHLORIDE NASAL SPRAY 44 ML NASL SCH ×4 (08:14→22:35)
[2016-12-17] MEDS: LORATADINE 10 MG TABLET PO SCH (10:14)
[2016-12-17] MEDS: DIVALPROEX SODIUM 500 MG TAB.SR.24H PO SCH ×2 (10:14→22:36)
[2016-12-17] MEDS: DIAZEPAM 5 MG TABLET PO SCH ×2 (10:14→22:36)
[2016-12-17] MEDS: PHENOL/SODIUM PHENOLATE 100 SPRAY/177 ML BOTTLE PO PRN (13:11)
--- NOTE | 2016-12-17 18:07 | PDOC PROGRESS REPORT ---
Subjective Progress Note for:: 12/17/16 Subjective:: Patient reports that if he goes to an institution he will "act out".Patient denies chest pain, shortness of breath, abdominal pain, nausea, vomiting, fevers , chills, diarrhea, constipation, headache, new onset weakness. Physical Exam Vital Signs: Temp Pulse Resp BP Pulse Ox 97.6 F 91 20 113/71 97 12/16/16 23:46 12/16/16 23:46 12/16/16 23:46 12/16/16 23:46 12/16/16 23:46 Intake & Output 12/16/16 12/17/16 12/18/16 06:59 06:59 06:59 Intake Total 405 2680 Output Total 365 Balance 40 2680 Weight 80.2 kg 79.9 kg Exam: General: Resting comfortably, easily aroused, oriented 3, no acute respiratory distress HEENT: AT/NC, PERRL, EOMI, oropharynx is moist, pink, no scleral icterus, no conjunctival injection Neck: No JVD, trachea midline Chest: Clear to auscultation bilaterally CV: Regular rate and rhythm, normal S1 and S2, no murmur, rub, or gallop Abdomen: Soft, nontender to palpation, nondistended, active bowel sounds; no rebound, rigidity, or guarding Extremities: No cyanosis, clubbing; trace edema Neuro: Cranial nerves II through XII are grossly intact without focal deficits Psych: Calm, appropriate mood and affect Results Laboratory Results: 12/16/16 03:56 12/17/16 06:31 12/17/16 06:31 Sodium 140.4 Potassium 4.2 Chloride 106 Carbon Dioxide 27 Anion Gap 7 BUN 10 Creatinine 0.69 Est GFR ( Amer) > 60 Est GFR (Non-Af Amer) > 60 Glucose 97 Calcium 9.4 12/10/16 12/10/16 12/11/16 18:50 18:50 00:31 Creatine Kinase 74 70 CK-MB (CK-2) < 0.22 Troponin I < 0.012 12/11/16 12/11/16 12/11/16 00:31 07:00 07:00 Creatine Kinase 262 H CK-MB (CK-2) < 0.22 1.49 Troponin I < 0.012 < 0.012 Impressions: Head CT 12/10/16 15:03 IMPRESSION: No acute intracranial finding. Chest X-Ray 12/14/16 06:00 IMPRESSION: Persistent bilateral perihilar ground-glass opacities, may represent pulmonary edema and/or pneumonia. Mild cardiomegaly. Assessment & Plan - Diagnosis (1) Acute psychosis Is this a current diagnosis for this admission?: YesPlan: Continue Thorazine to 50 by mouth every 8. Patient on 10 mg of Zyprexa po QHS. Consider increase to 5 by mouth twice a day in addition to this. Patient is no longer requiring 4 point restraints and has been downgraded to the floor. Patient is medically stable for transfer to a psychiatric facility. (2) Overdose of tricyclic antidepressants Qualifiers: Encounter type: subsequent encounter Injury intent: intentional self- harm Qualified Code(s): T43.012D - Poisoning by tricyclic antidepressants , intentional self-harm, subsequent encounter Is this a current diagnosis for this admission?: YesPlan: Resolved. Patient is medically stable for transfer to a psychiatric facility. Patient has been off bicarbonate drip for more than 48 hours. He is much improved from this aspect. EKG reveals a QRS of 92. Patient has been placed on seizure precautions. He is IVC'd. (3) Sepsis Qualifiers: Sepsis type: Pneumococcus Qualified Code(s): A40.3 - Sepsis due to Streptococcus pneumoniae Is this a current diagnosis for this admission?: YesPlan: Patient with sepsis secondary to aspiration pneumonia which is currently growing Klebsiella oxytoca, staph aureus, and strep pneumonia. Patient to be transitioned to Augmentin as susceptibilities are currently available and his organisms are sensitive to this. (4) Aspiration pneumonia due to inhalation of vomitus Is this a current diagnosis for this admission?: YesPlan: Patient had been on clindamycin and Zosyn for 4 days. Patient now on Augmentin. Patient is on day 6 of 10 of total therapy Culture growing Klebsiella oxytoca, Staphylococcus aureus, and Streptococcus pneumoniae. Continue nebulized treatments and antibiotics. Oxygen as needed. (5) Clonidine overdose Qualifiers: Encounter type: initial encounter Injury intent: intentional self-harm Qualified Code(s): T46.5X2A - Poisoning by other antihypertensive drugs , intentional self-harm, initial encounter Is this a current diagnosis for this admission?: Yes (6) Intentional benzodiazepine overdose Qualifiers: Encounter type: subsequent encounter Qualified Code(s): T42.4X2D - Poisoning by benzodiazepines, intentional self-harm, subsequent encounter Is this a current diagnosis for this admission?: Yes (7) Suicide attempt Is this a current diagnosis for this admission?: Yes (8) Tobacco abuse Is this a current diagnosis for this admission?: Yes (9) Respiratory failure requiring intubation Is this a current diagnosis for this admission?: Yes (10) Acute urinary retention Is this a current diagnosis for this admission?: Yes (11) Acute hypoxemic respiratory failure Is this a current diagnosis for this admission?: Yes (12) Thrush, oral Is this a current diagnosis for this admission?: YesPlan: Magic mouthwash - Time Time Spent with patient: 25-34 minutes Medications reviewed and adjusted accordingly: Yes Anticipated discharge: Other Within: when bed available
[2016-12-17] MEDS: FLUTICASONE NASAL SPRAY 50 MCG/SPRY 120 SPRAY/16 GM NASL SCH (22:35)
[2016-12-17] MEDS: OLANZAPINE 5 MG TABLET PO SCH (22:36)
[2016-12-17] MEDS: MONTELUKAST SODIUM 10 MG TABLET PO SCH (22:36)
[2016-12-17] MEDS: NYSTATIN/DEXAMETH/DIPHEN SUSP 120 ML PO SCH (22:43)
[2016-12-18] MEDS: CHLORPROMAZINE HCL 50 MG TABLET PO SCH ×3 (06:40→21:39)
[2016-12-18] MEDS: GUAIFENESIN SYRP 200 MG/10 ML UDC PO PRN ×3 (06:40→22:31)
[2016-12-18] MEDS: AMOXICILLIN TR/POT CLAVULANATE 500-125 MG TAB PO SCH ×3 (06:40→21:39)
[2016-12-18] MEDS: HEPARIN SOD (PORCINE) 5,000 UNIT/ML 1 ML SYRINGE SUBCUT SCH ×3 (06:41→21:37)
[2016-12-18 06:46] LABS: ANION GAP 16 (5-19); BLOOD UREA NITROGEN 12 mg/dL (7-20); CALCIUM 10.3 mg/dL (8.4-10.2); CARBON DIOXIDE 26 mmol/L (22-30); CHLORIDE 100 mmol/L (98-107); CREATININE RESULT 0.75 mg/dL (0.52-1.25); GLUCOSE 97 mg/dL (75-110); POTASSIUM 4.7 mmol/L (3.6-5.0); SODIUM 142.4 mmol/L (137-145)
[2016-12-18] MEDS: DIAZEPAM 5 MG TABLET PO SCH ×2 (09:26→21:40)
[2016-12-18] MEDS: SODIUM CHLORIDE NASAL SPRAY 44 ML NASL SCH ×4 (09:26→21:37)
[2016-12-18] MEDS: DIVALPROEX SODIUM 500 MG TAB.SR.24H PO SCH ×2 (09:27→21:40)
[2016-12-18] MEDS: LORATADINE 10 MG TABLET PO SCH (09:27)
[2016-12-18] MEDS: FLUTICASONE NASAL SPRAY 50 MCG/SPRY 120 SPRAY/16 GM NASL SCH ×2 (09:27→21:38)
[2016-12-18] MEDS: NYSTATIN/DEXAMETH/DIPHEN SUSP 120 ML PO SCH ×4 (09:28→21:38)
[2016-12-18] MEDS ORDERED: METOPROLOL TARTRATE 25 MG TABLET PO ONE (11:00)
[2016-12-18] MEDS ORDERED: IBUPROFEN 600 MG TABLET PO PRN (15:35)
--- NOTE | 2016-12-18 15:37 | PDOC PROGRESS REPORT ---
Subjective Progress Note for:: 12/18/16 Subjective:: Patient complains of sore throat. He does complain of some discomfort near an IV site on his right upper extremity. Patient denies chest pain, shortness of breath, abdominal pain, nausea, vomiting, fevers, chills, diarrhea, constipation , headache, new onset weakness. Patient complains of his anxiety. Physical Exam Vital Signs: Temp Pulse Resp BP Pulse Ox 97.9 F 108 H 16 117/77 97 12/17/16 23:44 12/17/16 23:44 12/17/16 23:44 12/17/16 23:44 12/17/16 23:44 Intake & Output 12/17/16 12/18/16 12/19/16 06:59 06:59 06:59 Intake Total 2680 700 Balance 2680 700 Weight 79.9 kg 79.8 kg Exam: General: Awake, alert,, oriented 3, no acute respiratory distress HEENT: AT/NC, PERRL, EOMI, oropharynx is moist, pink, no scleral icterus, no conjunctival injection Neck: No JVD, trachea midline Chest: Clear to auscultation bilaterally CV: Regular rate and rhythm, normal S1 and S2, no murmur, rub, or gallop Abdomen: Soft, nontender to palpation, nondistended, active bowel sounds; no rebound, rigidity, or guarding Extremities: No cyanosis, clubbing; trace edema; right upper extremity with mild erythema of IV site Neuro: Cranial nerves II through XII are grossly intact without focal deficits Psych: Calm, appropriate mood and affect Results Laboratory Results: 12/16/16 03:56 12/18/16 06:09 12/18/16 06:09 Sodium 142.4 Potassium 4.7 Chloride 100 Carbon Dioxide 26 Anion Gap 16 BUN 12 Creatinine 0.75 Est GFR ( Amer) > 60 Est GFR (Non-Af Amer) > 60 Glucose 97 Calcium 10.3 H 12/10/16 12/10/16 12/11/16 18:50 18:50 00:31 Creatine Kinase 74 70 CK-MB (CK-2) < 0.22 Troponin I < 0.012 12/11/16 12/11/16 12/11/16 00:31 07:00 07:00 Creatine Kinase 262 H CK-MB (CK-2) < 0.22 1.49 Troponin I < 0.012 < 0.012 Impressions: Head CT 12/10/16 15:03 IMPRESSION: No acute intracranial finding. Chest X-Ray 12/14/16 06:00 IMPRESSION: Persistent bilateral perihilar ground-glass opacities, may represent pulmonary edema and/or pneumonia. Mild cardiomegaly. Assessment & Plan - Diagnosis (1) Acute psychosis Is this a current diagnosis for this admission?: YesPlan: Continue Thorazine to 50 by mouth every 8. Patient on 10 mg of Zyprexa po QHS. Consider increase to 5 by mouth twice a day in addition to this. Patient is no longer requiring 4 point restraints and has been downgraded to the floor. Patient is medically stable for transfer to a psychiatric facility. (2) Overdose of tricyclic antidepressants Qualifiers: Encounter type: subsequent encounter Injury intent: intentional self- harm Qualified Code(s): T43.012D - Poisoning by tricyclic antidepressants , intentional self-harm, subsequent encounter Is this a current diagnosis for this admission?: YesPlan: Resolved. Patient is medically stable for transfer to a psychiatric facility. Patient has been off bicarbonate drip for more than 48 hours. He is much improved from this aspect. EKG reveals a QRS of 92. Patient has been placed on seizure precautions. He is IVC'd. (3) Sepsis Qualifiers: Sepsis type: Pneumococcus Qualified Code(s): A40.3 - Sepsis due to Streptococcus pneumoniae Is this a current diagnosis for this admission?: YesPlan: Patient with sepsis secondary to aspiration pneumonia which is currently growing Klebsiella oxytoca, staph aureus, and strep pneumonia. Patient to be transitioned to Augmentin as susceptibilities are currently available and his organisms are sensitive to this. (4) Aspiration pneumonia due to inhalation of vomitus Is this a current diagnosis for this admission?: YesPlan: Patient had been on clindamycin and Zosyn for 4 days. Patient now on Augmentin. Patient is on day 7 of 10 of total therapy Culture growing Klebsiella oxytoca, Staphylococcus aureus, and Streptococcus pneumoniae. Continue nebulized treatments and antibiotics. Oxygen as needed. (5) Clonidine overdose Qualifiers: Encounter type: initial encounter Injury intent: intentional self-harm Qualified Code(s): T46.5X2A - Poisoning by other antihypertensive drugs , intentional self-harm, initial encounter Is this a current diagnosis for this admission?: Yes (6) Intentional benzodiazepine overdose Qualifiers: Encounter type: subsequent encounter Qualified Code(s): T42.4X2D - Poisoning by benzodiazepines, intentional self-harm, subsequent encounter Is this a current diagnosis for this admission?: Yes (7) Suicide attempt Is this a current diagnosis for this admission?: Yes (8) Tobacco abuse Is this a current diagnosis for this admission?: Yes (9) Respiratory failure requiring intubation Is this a current diagnosis for this admission?: Yes (10) Acute urinary retention Is this a current diagnosis for this admission?: Yes (11) Acute hypoxemic respiratory failure Is this a current diagnosis for this admission?: Yes (12) Thrush, oral Is this a current diagnosis for this admission?: YesPlan: Magic mouthwash - Time Time Spent with patient: 25-34 minutes Medications reviewed and adjusted accordingly: Yes Anticipated discharge: Other Within: when bed available
[2016-12-18] MEDS: PHENOL/SODIUM PHENOLATE 100 SPRAY/177 ML BOTTLE PO PRN (17:13)
[2016-12-18] MEDS: METOPROLOL TARTRATE 25 MG TABLET PO SCH (21:39)
[2016-12-18] MEDS: MONTELUKAST SODIUM 10 MG TABLET PO SCH (21:40)
[2016-12-18] MEDS: OLANZAPINE 5 MG TABLET PO SCH (21:40)
[2016-12-18] MEDS ORDERED: METOPROLOL TARTRATE 25 MG TABLET PO SCH (22:00)
[2016-12-18] MEDS: HYDROXYZINE PAMOATE 50 MG CAPSULE PO PRN (22:31)
[2016-12-19 05:23] LABS: ANION GAP 16 (5-19); BLOOD UREA NITROGEN 19 mg/dL (7-20); CALCIUM 10.2 mg/dL (8.4-10.2); CARBON DIOXIDE 26 mmol/L (22-30); CHLORIDE 98 mmol/L (98-107); CREATININE RESULT 0.83 mg/dL (0.52-1.25); GLUCOSE 102 mg/dL (75-110); POTASSIUM 5.1 mmol/L (3.6-5.0); SODIUM 139.6 mmol/L (137-145)
[2016-12-19] MEDS: HEPARIN SOD (PORCINE) 5,000 UNIT/ML 1 ML SYRINGE SUBCUT SCH (05:41)
[2016-12-19] MEDS: AMOXICILLIN TR/POT CLAVULANATE 500-125 MG TAB PO SCH ×3 (05:42→21:23)
[2016-12-19] MEDS: CHLORPROMAZINE HCL 50 MG TABLET PO SCH ×3 (05:42→21:24)
[2016-12-19] MEDS: SODIUM CHLORIDE NASAL SPRAY 44 ML NASL SCH (07:58)
[2016-12-19] MEDS ORDERED: SODIUM POLYSTYRENE SULFONATE 15 GM/60 ML PO ONE (09:36)
--- NOTE | 2016-12-19 09:45 | PDOC PROGRESS REPORT ---
Subjective Progress Note for:: 12/19/16 Subjective:: Patient reevaluated yesterday by psychiatry Service. Involuntary commitment was renewed. Patient denies any chills or fever, shortness of breath or diarrhea, pain or discomfort but has been complaining of multiple needle sticks in the forearms bilaterally. Also complains of the subcutaneous heparin. Does not want to take injectable medication. Patient earlier reportedly tried to leave the hospital premises and security was able to find him. Physical Exam Vital Signs: Temp Pulse Resp BP Pulse Ox 97.5 F 99 20 120/73 99 12/19/16 07:47 12/19/16 07:47 12/19/16 07:47 12/19/16 07:47 12/19/16 07:47 Intake & Output 12/18/16 12/19/16 12/20/16 06:59 06:59 06:59 Intake Total 700 1462 Balance 700 1462 Weight 79.8 kg 80.2 kg General appearance: PRESENT: no acute distress, thin Head exam: PRESENT: normocephalic Eye exam: PRESENT: EOMI Mouth exam: PRESENT: moist, neck supple Neck exam: ABSENT: JVD Respiratory exam: PRESENT: clear to auscultation dom. ABSENT: rhonchi, wheezes Cardiovascular exam: PRESENT: RRR. ABSENT: gallop GI/Abdominal exam: PRESENT: soft. ABSENT: distended, tenderness Extremities exam: ABSENT: pedal edema Neurological exam: PRESENT: alert, awake, oriented to person, oriented to place , oriented to time, oriented to situation Focused psych exam: PRESENT: other - Patient denies suicidal or homicidal ideations. Poor insight. Skin exam: PRESENT: dry, warm. ABSENT: cyanosis Results Laboratory Results: 12/16/16 03:56 12/19/16 04:13 12/19/16 04:13 Sodium 139.6 Potassium 5.1 H Chloride 98 Carbon Dioxide 26 Anion Gap 16 BUN 19 Creatinine 0.83 Est GFR ( Amer) > 60 Est GFR (Non-Af Amer) > 60 Glucose 102 Calcium 10.2 12/10/16 12/10/16 12/11/16 18:50 18:50 00:31 Creatine Kinase 74 70 CK-MB (CK-2) < 0.22 Troponin I < 0.012 12/11/16 12/11/16 12/11/16 00:31 07:00 07:00 Creatine Kinase 262 H CK-MB (CK-2) < 0.22 1.49 Troponin I < 0.012 < 0.012 Impressions: Head CT 12/10/16 15:03 IMPRESSION: No acute intracranial finding. Chest X-Ray 12/14/16 06:00 IMPRESSION: Persistent bilateral perihilar ground-glass opacities, may represent pulmonary edema and/or pneumonia. Mild cardiomegaly. Assessment & Plan - Diagnosis (1) Acute hypoxemic respiratory failure Is this a current diagnosis for this admission?: Yes (2) Aspiration pneumonia due to inhalation of vomitus Is this a current diagnosis for this admission?: Yes (3) Sepsis Qualifiers: Sepsis type: Pneumococcus Qualified Code(s): A40.3 - Sepsis due to Streptococcus pneumoniae Is this a current diagnosis for this admission?: Yes (4) Hyperkalemia Is this a current diagnosis for this admission?: Yes (5) Overdose Qualifiers: Encounter type: initial encounter Injury intent: intentional self-harm Qualified Code(s): T50.902A - Poisoning by unspecified drugs, medicaments and biological substances, intentional self-harm, initial encounter Is this a current diagnosis for this admission?: Yes (6) Thrush, oral Is this a current diagnosis for this admission?: Yes (7) Suicide attempt Is this a current diagnosis for this admission?: Yes - Time Time Spent with patient: 25-34 minutes - Plan Summary Plan Summary: We will discontinue heparin. May be causing the mildly elevated potassium. Give Kayexalate and recheck level in the morning. In the meantime continue current antibiotics, awaiting psychiatric facility for transfer. Continue supportive care. Continue sitter. Discontinue IV fluids.
--- NOTE | 2016-12-19 09:46 | PSYCHOLOGICAL NOTE ---
Psych Note - Psych Note Psych Note: 31-year-old male brought by EMS with report by patient's mother suspected overdose. Mother reports that the patient has a long history of multiple suicide attempts and was feeling suicidal this morning. He reports he had what she describes as a "panic attack" and then went into the bathroom and she heard him swallow pills. About 20 minutes after that he seemed to become lethargic and she called 911. The patient arrives with empty bottles with the following. Clonazepam 2 mg total of 90 filled for 2917 one 3 times a day when necessary, amitriptyline 100 mg total of 45 filled 11/24/2016 one daily at bedtime and one half when necessary anxiety, and clonidine 0.2 mg total of 30 one half by mouth daily at bedtime filled 11/14/2016 when asked how many of these were in the bottles prior to his suspected overdose the mother could only put her finger at a level on the bottle and could not give a specific quantity. Patient discloses "I guess I swallowed a bunch of pills then dumped them rest in the toilet." Patient states that his mother tends to steal his medications but is always telling him that he is abusing his medications. He continued to state that he feels he is not getting proper medical's health services. Patient denies trying to hurt himself he just wants to "pissed off my mom." Patient continued to disclose that he was released from long-term on November 09 and feels that going inpatient would make him feel worse; " 4 harman make me feel like I'm in a cell." Patient does confirm he has prior suicide attempts in the past, then attempts to minimize these situations. Patient is alert and orientated to person, place, time and circumstance. Mood is euthymic with congruent affect. Patient denies suicidal and homicidal ideation; patient states he overdosed on purpose to make his mother mad. Patient denies auditory and visual hallucinations; patient is not demonstrating behaviour what would be congruent to responding to internal stimuli. No delusions are noted. Thought process is organized and linear. Eye contact was well maintained. Intellectual abilities appear to be low average range. Attention and concentration is fair. Insight, judgment, and impulse control is poor. Polysubstance abuse per history 296.80 (F 31.9) unspecified bipolar and related disorder per history provided by patient 309.81 (F43.10) posttraumatic stress disorder per history provided by patient Patient discloses history of traumatic brain injury Impression\\plan: Patient is recommended for renew IVC. Patient attempts to minimize current situation stating that he did it to make his mom angry. Patient does confirm he has prior suicide attempts in the past, then attempts to minimize these situations. Patient is currently demonstrating impaired insight judgment and impulse control is considered a danger to himself and others. Patient is recommended for inpatient treatment. Dr. Arceo was consulted on the care and management of this patient; attending physician is in agreement with recommendations and disposition.
--- NOTE | 2016-12-19 09:50 | PSYCHOLOGICAL NOTE ---
Psych Note - Psych Note Psych Note: 31-year-old male brought by EMS with report by patient's mother suspected overdose. Mother reports that the patient has a long history of multiple suicide attempts and was feeling suicidal this morning. He reports he had what she describes as a "panic attack" and then went into the bathroom and she heard him swallow pills. About 20 minutes after that he seemed to become lethargic and she called 911. The patient arrives with empty bottles with the following. Clonazepam 2 mg total of 90 filled for 2917 one 3 times a day when necessary, amitriptyline 100 mg total of 45 filled 11/24/2016 one daily at bedtime and one half when necessary anxiety, and clonidine 0.2 mg total of 30 one half by mouth daily at bedtime filled 11/14/2016 when asked how many of these were in the bottles prior to his suspected overdose the mother could only put her finger at a level on the bottle and could not give a specific quantity. Patient is currently intubated; evaluation will occur at a later time.
--- NOTE | 2016-12-19 09:53 | PSYCHOLOGICAL NOTE ---
Psych Note - Psych Note Psych Note: 31-year-old male brought by EMS with report by patient's mother suspected overdose. Mother reports that the patient has a long history of multiple suicide attempts and was feeling suicidal this morning. He reports he had what she describes as a "panic attack" and then went into the bathroom and she heard him swallow pills. About 20 minutes after that he seemed to become lethargic and she called 911. The patient arrives with empty bottles with the following. Clonazepam 2 mg total of 90 filled for 2917 one 3 times a day when necessary, amitriptyline 100 mg total of 45 filled 11/24/2016 one daily at bedtime and one half when necessary anxiety, and clonidine 0.2 mg total of 30 one half by mouth daily at bedtime filled 11/14/2016 when asked how many of these were in the bottles prior to his suspected overdose the mother could only put her finger at a level on the bottle and could not give a specific quantity. Patient was extubated late afternoon yesterday. Clinician was unable to conduct evaluation due to ED patient flow.
--- NOTE | 2016-12-19 09:54 | PSYCHOLOGICAL NOTE ---
Psych Note - Psych Note Psych Note: 31-year-old male brought by EMS with report by patient's mother suspected overdose. Mother reports that the patient has a long history of multiple suicide attempts and was feeling suicidal this morning. He reports he had what she describes as a "panic attack" and then went into the bathroom and she heard him swallow pills. About 20 minutes after that he seemed to become lethargic and she called 911. The patient arrives with empty bottles with the following. Clonazepam 2 mg total of 90 filled for 2917 one 3 times a day when necessary, amitriptyline 100 mg total of 45 filled 11/24/2016 one daily at bedtime and one half when necessary anxiety, and clonidine 0.2 mg total of 30 one half by mouth daily at bedtime filled 11/14/2016 when asked how many of these were in the bottles prior to his suspected overdose the mother could only put her finger at a level on the bottle and could not give a specific quantity. Clinician was contacted by patient's attending nurse. She disclosed the patient was "caught running down the steps." Behavioral team recommended medication adjustment. Polysubstance abuse per history 296.80 (F 31.9) unspecified bipolar and related disorder per history provided by patient 309.81 (F43.10) posttraumatic stress disorder per history provided by patient Patient discloses history of traumatic brain injury Impression\\plan: Patient is recommended for continued IVC. Patient attempts to minimize current situation stating that he did it to make his mom angry. Patient does confirm he has prior suicide attempts in the past, then attempts to minimize these situations. Patient is currently demonstrating impaired insight judgment and impulse control is considered a danger to himself and others. This is reinforced by patient's current behavior of attempting to elope. Patient is recommended for inpatient treatment. Dr. Arceo was consulted on the care and management of this patient; attending physician is in agreement with recommendations and disposition.
[2016-12-19] MEDS: LORATADINE 10 MG TABLET PO SCH (11:08)
[2016-12-19] MEDS: DIVALPROEX SODIUM 500 MG TAB.SR.24H PO SCH (11:09)
[2016-12-19] MEDS: METOPROLOL TARTRATE 25 MG TABLET PO SCH ×2 (11:09→21:23)
[2016-12-19] MEDS: DIAZEPAM 5 MG TABLET PO SCH (11:11)
[2016-12-19] MEDS: FLUTICASONE NASAL SPRAY 50 MCG/SPRY 120 SPRAY/16 GM NASL SCH ×2 (11:12→21:22)
[2016-12-19] MEDS: NYSTATIN/DEXAMETH/DIPHEN SUSP 120 ML PO SCH ×4 (11:13→21:25)
[2016-12-19] MEDS: GUAIFENESIN SYRP 200 MG/10 ML UDC PO PRN (18:12)
[2016-12-19] MEDS: ZIPRASIDONE HCL 20 MG CAPSULE PO PRN (21:22)
[2016-12-19] MEDS: HYDROXYZINE PAMOATE 50 MG CAPSULE PO PRN (21:23)
[2016-12-19] MEDS: MONTELUKAST SODIUM 10 MG TABLET PO SCH (21:24)
[2016-12-19] MEDS ORDERED: DIVALPROEX SODIUM 250 MG TAB.SR.24H PO SCH (22:00)
[2016-12-19] MEDS ORDERED: DIVALPROEX SODIUM 500 MG TAB.SR.24H PO SCH ×2 (22:00)
[2016-12-19] MEDS ORDERED: BENZTROPINE MESYLATE 1 MG TABLET PO SCH (22:00)
[2016-12-20 04:56] LABS: ANION GAP 15 (5-19); BLOOD UREA NITROGEN 15 mg/dL (7-20); CALCIUM 9.9 mg/dL (8.4-10.2); CARBON DIOXIDE 26 mmol/L (22-30); CHLORIDE 99 mmol/L (98-107); CREATININE RESULT 0.79 mg/dL (0.52-1.25); GLUCOSE 102 mg/dL (75-110); SODIUM 139.9 mmol/L (137-145)
[2016-12-20] MEDS: AMOXICILLIN TR/POT CLAVULANATE 500-125 MG TAB PO SCH ×2 (07:37→13:59)
[2016-12-20] MEDS: CHLORPROMAZINE HCL 50 MG TABLET PO SCH ×2 (07:37→13:59)
[2016-12-20] MEDS: GUAIFENESIN SYRP 200 MG/10 ML UDC PO PRN ×2 (07:52→16:59)
[2016-12-20] MEDS ORDERED: DIVALPROEX SODIUM 500 MG TAB.SR.24H PO SCH (08:00)
[2016-12-20] MEDS: FLUTICASONE NASAL SPRAY 50 MCG/SPRY 120 SPRAY/16 GM NASL SCH (09:26)
[2016-12-20] MEDS: NYSTATIN/DEXAMETH/DIPHEN SUSP 120 ML PO SCH ×3 (09:27→16:59)
[2016-12-20] MEDS: LORATADINE 10 MG TABLET PO SCH (09:27)
[2016-12-20] MEDS: METOPROLOL TARTRATE 25 MG TABLET PO SCH (09:27)
--- NOTE | 2016-12-20 11:57 | PDOC PROGRESS REPORT ---
Subjective Progress Note for:: 12/20/16 Subjective:: Patient reevaluated yesterday by psychiatry Service. Involuntary commitment was renewed 2 days ago. Patient denies any chills or fever, shortness of breath or diarrhea, but no complaints of jaw pain. Patient reports that he had a missed appointment with his provider for evaluation of his jaw as she has a prior injury. Patient reports that new medications ordered yesterday as recommended by psychiatry doesn't help him . Physical Exam Vital Signs: Temp Pulse Resp BP Pulse Ox 98.7 F 100 16 121/80 98 12/19/16 20:31 12/19/16 20:31 12/19/16 20:31 12/19/16 20:31 12/19/16 20:31 Intake & Output 12/19/16 12/20/16 12/21/16 06:59 06:59 06:59 Intake Total 1462 1180 Balance 1462 1180 Weight 80.2 kg 79.6 kg General appearance: PRESENT: no acute distress, cooperative Head exam: PRESENT: normocephalic Eye exam: PRESENT: EOMI, PERRLA Mouth exam: PRESENT: moist, neck supple Neck exam: ABSENT: JVD Respiratory exam: PRESENT: clear to auscultation dom. ABSENT: wheezes Cardiovascular exam: PRESENT: RRR. ABSENT: gallop GI/Abdominal exam: PRESENT: soft. ABSENT: distended, tenderness Extremities exam: ABSENT: pedal edema Neurological exam: PRESENT: alert, awake, oriented to situation Skin exam: PRESENT: dry, warm. ABSENT: cyanosis Results Laboratory Results: 12/16/16 03:56 12/20/16 03:56 12/20/16 03:56 Sodium 139.9 Potassium 5.0 Chloride 99 Carbon Dioxide 26 Anion Gap 15 BUN 15 Creatinine 0.79 Est GFR ( Amer) > 60 Est GFR (Non-Af Amer) > 60 Glucose 102 Calcium 9.9 12/10/16 12/10/16 12/11/16 18:50 18:50 00:31 Creatine Kinase 74 70 CK-MB (CK-2) < 0.22 Troponin I < 0.012 12/11/16 12/11/16 12/11/16 00:31 07:00 07:00 Creatine Kinase 262 H CK-MB (CK-2) < 0.22 1.49 Troponin I < 0.012 < 0.012 Impressions: Head CT 12/10/16 15:03 IMPRESSION: No acute intracranial finding. Chest X-Ray 12/14/16 06:00 IMPRESSION: Persistent bilateral perihilar ground-glass opacities, may represent pulmonary edema and/or pneumonia. Mild cardiomegaly. Assessment & Plan - Diagnosis (1) Acute hypoxemic respiratory failure Is this a current diagnosis for this admission?: Yes (2) Aspiration pneumonia due to inhalation of vomitus Is this a current diagnosis for this admission?: Yes (3) Sepsis Qualifiers: Sepsis type: Pneumococcus Qualified Code(s): A40.3 - Sepsis due to Streptococcus pneumoniae Is this a current diagnosis for this admission?: Yes (4) Hyperkalemia Is this a current diagnosis for this admission?: Yes (5) Overdose Qualifiers: Encounter type: initial encounter Injury intent: intentional self-harm Qualified Code(s): T50.902A - Poisoning by unspecified drugs, medicaments and biological substances, intentional self-harm, initial encounter Is this a current diagnosis for this admission?: Yes (6) Thrush, oral Is this a current diagnosis for this admission?: Yes (7) Suicide attempt Is this a current diagnosis for this admission?: Yes - Time Time Spent with patient: 25-34 minutes - Plan Summary Plan Summary: Discussion his psychiatrist service who will reevaluate the patient regarding medication. In the meantime awaiting bed inpatient psychiatry. We will begin [place] as needed for pain control. Continue other medications for now and continue sitter.
[2016-12-20] MEDS ORDERED: HYDROCODONE/ACETAMINOPHEN 10-325 MG TABLET PO PRN (12:11)
[2016-12-20] MEDS: ZIPRASIDONE HCL 20 MG CAPSULE PO PRN (12:18)
--- NOTE | 2016-12-20 15:04 | PSYCHOLOGICAL NOTE ---
Psych Note - Psych Note Psych Note: 31-year-old male brought by EMS with report by patient's mother suspected overdose. Mother reports that the patient has a long history of multiple suicide attempts and was feeling suicidal this morning. He reports he had what she describes as a "panic attack" and then went into the bathroom and she heard him swallow pills. About 20 minutes after that he seemed to become lethargic and she called 911. The patient arrives with empty bottles with the following. Clonazepam 2 mg total of 90 filled for 2917 one 3 times a day when necessary, amitriptyline 100 mg total of 45 filled 11/24/2016 one daily at bedtime and one half when necessary anxiety, and clonidine 0.2 mg total of 30 one half by mouth daily at bedtime filled 11/14/2016 when asked how many of these were in the bottles prior to his suspected overdose the mother could only put her finger at a level on the bottle and could not give a specific quantity. Patient discloses that he just got along with his mother. He states "I love my mom but she still trying to manipulate even over the phone." He states that his mom has severe mental health issues and again stated that he did not attempt to kill himself. He states "I just wanted to scare her" patient states that he used to have serious anger issues before going to detention however has been working on trying to not become aggressive. Patient states that he attempted to elope yesterday because he thought his vocational rehabilitation appointment was then. He states that he is in the process of setting up vocational rehabilitation services, his disability, and getting his teeth fixed. He continued disclosed that he does not want to stay with his mom symptoms either going to stay with a friend" was homeless [facility]. Patient states that staying inside her room is very difficult "like torture." Patient is alert and orientated to person, place, time and circumstance. Mood is euthymic with congruent affect. Patient denies suicidal and homicidal ideation. Patient denies auditory and visual hallucinations; patient is not demonstrating behaviour what would be congruent to responding to internal stimuli. No delusions are noted. Thought process is organized and linear. Eye contact was well maintained. Intellectual abilities appear to be within low average range. Attention and concentration is good. Insight, judgment, and impulse control is poor. Polysubstance abuse per history 296.80 (F 31.9) unspecified bipolar and related disorder per history provided by patient 309.81 (F43.10) posttraumatic stress disorder per history provided by patient Patient discloses history of traumatic brain injury Impression\\plan: Patient is recommended for rescind of IVC is considered psychiatrically cleared for discharge. Patient does not meet IVC criteria per [place] GS 120 2C. Patient denies suicidal ideations stating his suicide attempt was not an attempt at harm rather an attempt of scaring his mother. 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 Patient states he is prepared not to stay with his mom anymore because of the family discord and is thinking about staying with a friend in the homeless [facility]. Patient is recommended to receive outpatient services for both mental health and substance abuse evaluation/treatment. Dr. Arceo was consulted on the care and management of this patient; attending physician is in agreement with recommendations and disposition.
[2016-12-20 16:18] VITALS: BP 124/69
--- NOTE | 2016-12-20 18:59 | PDOC DISCHARGE SUMMARY ---
General - Admit/Disc Date/PCP Admission Date/Primary Care Provider: 12/10/16 16:54 Discharge Date: 12/20/16 - Discharge Diagnosis (1) Acute hypoxemic respiratory failure Is this a current diagnosis for this admission?: Yes (2) Aspiration pneumonia due to inhalation of vomitus Is this a current diagnosis for this admission?: Yes (3) Sepsis Is this a current diagnosis for this admission?: Yes (4) Hyperkalemia Is this a current diagnosis for this admission?: Yes (5) Overdose Is this a current diagnosis for this admission?: Yes (6) Thrush, oral Is this a current diagnosis for this admission?: Yes (7) Suicide attempt Is this a current diagnosis for this admission?: Yes - Additional Information Resuscitation Status: Full Code Discharge Diet: Regular Discharge Activity: Activity As Tolerated, Balance Activity w/Rest Home Medications: Amox Tr/Potassium Clavulanate [Augmentin "500" Tablet] 1 tab PO Q8 #12 tablet 12/20/16 Benztropine Mesylate [Cogentin 1 mg Tablet] 1 mg PO QHS #15 tablet 12/20/16 Chlorpromazine HCl [Thorazine 50 mg Tablet] 100 mg PO Q8 #45 tablet 12/20/16 Divalproex Sodium [Depakote ER 250 mg Tablet] 750 mg PO QHS #45 tab.sr.24h 12/20 Divalproex Sodium [Depakote ER 500 mg Tab.sr] 500 mg PO QAM #15 tab.sr.24h 12/20 History of Present Illness Patient complains of: Drug overdose History of Present Illness: OLGA FAN is a 31 year old male, brought to the emergency room by the family because of the suspected drug overdose. Patient apparently had history of multiple suicide attempts as reported and stated was suicidal the morning before admission. Patient reportedly had a panic attack and went into the back room and reportedly the patient swallowed pills. Subsequently the patient become lethargic and therefore 911 was called. Empty bottles of klonopin, amitriptyline and clonidine were found. Narcan was administered by EMS without response. The patient was brought to the emergency room. Patient was intubated and given sodium bicarbonate and by carbonate drip as well as activated charcoal. Patient was then referred for admission. For details please refer to history and physical examination performed by the admitting physician. Hospital Course Hospital Course: The patient was admitted to the intensive care unit. Pulmonary was consulted for ventilator management. The patient was started on intravenous fluid for hydration, and subsequently noted infiltrates on x-ray with increased interstitial markings probably related to aspiration. Broad-spectrum antibiotic was started, cultures were performed and sputum grew Staphylococcus aureus MSSA, Streptococcus, and Klebsiella. Antibiotics were therefore tailored towards culture result. Bronchodilators was given, as well as sedatives until the patient improves and successfully extubated. Intravenous antibiotic was shifted to oral as per culture and sensitivity In terms of the patient's overdose, he was referred to psychiatry service, where he was involuntarily committed for suicidal attempt prior to being admitted. Patient was placed on benzodiazepine, as well as Zyprexa and a sitter was placed. Patient subsequently improved and denies suicidal or homicidal ideations. Patient tried to elope initially and psychiatry service renewed his involuntary commitment . On subsequent reevaluation of the patient, recommendation made to be on Depakote, Thorazine and discontinue Zyprexa and benzodiazepine. Patient likewise placed on Cogentin. Patient remained without any suicidal or homicidal ideations. Psychiatry service therefore recommended discontinuation of sitter and involuntary commitment. He was cleared by psychiatry for discharge. Social service was consulted for medication assistance. Patient advised to follow-up at [facility] and [facility]. Physical Exam Vital Signs: Temp Pulse Resp BP Pulse Ox 97.6 F 94 14 124/69 98 12/20/16 18:08 12/20/16 18:08 12/20/16 18:08 12/20/16 18:08 12/20/16 18:08 Intake & Output 12/19/16 12/20/16 12/21/16 06:59 06:59 06:59 Intake Total 1462 1180 660 Balance 1462 1180 660 Weight 80.2 kg 79.6 kg General appearance: PRESENT: no acute distress, cooperative Head exam: PRESENT: normocephalic Eye exam: PRESENT: conjunctiva pink, EOMI, PERRLA Mouth exam: PRESENT: moist, neck supple Neck exam: ABSENT: JVD Respiratory exam: PRESENT: clear to auscultation dom. ABSENT: rhonchi, wheezes Cardiovascular exam: PRESENT: RRR. ABSENT: gallop GI/Abdominal exam: PRESENT: normal bowel sounds, soft. ABSENT: distended, tenderness Extremities exam: ABSENT: pedal edema Neurological exam: PRESENT: alert, awake, oriented to person, oriented to place , oriented to time, oriented to situation Psychiatric exam: PRESENT: appropriate affect. ABSENT: agitated, homicidal ideation, suicidal ideation Focused psych exam: ABSENT: flight of ideas, restlessness Skin exam: PRESENT: dry, warm. ABSENT: cyanosis Results Laboratory Results: 12/16/16 03:56 12/20/16 03:56 12/20/16 03:56 Sodium 139.9 Potassium 5.0 Chloride 99 Carbon Dioxide 26 Anion Gap 15 BUN 15 Creatinine 0.79 Est GFR ( Amer) > 60 Est GFR (Non-Af Amer) > 60 Glucose 102 Calcium 9.9 12/10/16 12/10/16 12/11/16 18:50 18:50 00:31 Creatine Kinase 74 70 CK-MB (CK-2) < 0.22 Troponin I < 0.012 12/11/16 12/11/16 12/11/16 00:31 07:00 07:00 Creatine Kinase 262 H CK-MB (CK-2) < 0.22 1.49 Troponin I < 0.012 < 0.012 Impressions: Head CT 12/10/16 15:03 IMPRESSION: No acute intracranial finding. Chest X-Ray 12/14/16 06:00 IMPRESSION: Persistent bilateral perihilar ground-glass opacities, may represent pulmonary edema and/or pneumonia. Mild cardiomegaly. Qualifiers PATEINT BEING DISCHARGED WITH ANY OF THE FOLLOWING DIAGNOSIS?: No Plan Discharge Plan: Follow-up with [facility] in 1 week. Follow-up with [facility] in one week.
== END 2016-12-20 18:30 | disposition home or self-care (01) | DRG 917 ==
LOC: ER 14:45 → EH 16:54 → UNDOADMIN 17:31 → EH 17:31 → ICU 18:30 → 4N 12-15 18:37
PROVIDERS: ADMIT Family Medicine; ATTEND Family Medicine
PROC: 0BH17EZ Insertion of Endotracheal Airway into Trachea, Via Natural or Artificial Opening (ICD-10-PCS; principal; 2016-12-10)
PROC: 5A1945Z Respiratory Ventilation, 24-96 Consecutive Hours (ICD-10-PCS; 2016-12-10)
DX: T42.4X2A Poisoning by benzodiazepines, intentional self-harm, initial encounter (principal); A40.3 Sepsis due to Streptococcus pneumoniae; J96.01 Acute respiratory failure with hypoxia; J69.0 Pneumonitis due to inhalation of food and vomit; B37.0 Candidal stomatitis; F23 Brief psychotic disorder; T43.012A Poisoning by tricyclic antidepressants, intentional self-harm, initial encounter; T46.5X Poisoning by, adverse effect of and underdosing of other antihypertensive drugs; E87.5 Hyperkalemia; F43.10 Post-traumatic stress disorder, unspecified; F32.9 Major depressive disorder, single episode, unspecified; F12.90 Cannabis use, unspecified, uncomplicated; F17.200 Nicotine dependence, unspecified, uncomplicated; I95.2 Hypotension due to drugs; B95.3 Streptococcus pneumoniae as the cause of diseases classified elsewhere; B95.61 Methicillin susceptible Staphylococcus aureus infection as the cause of diseases classified elsewhere; R33.0 Drug induced retention of urine; B96.89 Other specified bacterial agents as the cause of diseases classified elsewhere; F41.9 Anxiety disorder, unspecified; Y92.002 Bathroom of unspecified non-institutional (private) residence as the place of occurrence of the external cause; Z91.5 Personal history of self-harm; Z82.49 Family history of ischemic heart disease and other diseases of the circulatory system; Z80.9 Family history of malignant neoplasm, unspecified
CPT/HCPCS: 36415; 36600; 70450; 71010; 80048; 80053; 80178; 80307; 81001; 82542; 82550; 82553; 82803; 82962; 83605; 83690; 83735; 84478; 84484; 85025; 85610; 87070; 87077; 87086; 87186; 87205; 93005; 93010; 94002; 94003; 94640; 99291; J1265; J1644; J1815; J1885; J1940; J2060; J2543; J2704; J3010; J3230; J3360; J3411; J3480; J3486; J3490; J7030; J7060; S0164

== ENCOUNTER 2017-09-04 11:57 | Emergency (ER) | payer SELFPAY ==
--- NOTE | 2017-09-04 13:11 | ER Document Report ---
ED ENT - General Chief Complaint: Sore Throat Stated Complaint: MOUTH PAIN Time Seen by Provider: 09/04/17 12:53 Mode of Arrival: Ambulatory Information source: Patient Notes: 31-year-old male presented to ED for sore throat 4 months. He was treated with amoxicillin but still has some swelling and it has not improved. He states he has been having sweats and chills at night. States he has needed to have his tonsils out for many years but has never been able to convince anybody to take them out. He does speak with full sentences with no difficulty understanding his speech. TRAVEL OUTSIDE OF THE [place] IN LAST 30 DAYS: No - HPI Patient complains to provider of: Throat problem Onset: Other - Frequently has tonsil problems. States she has been having a sore throat for 4 months Onset/Duration: Intermittent Quality of pain: Sharp Severity: Moderate Pain Level: 3 Context: Recent Illness Location of pain: Throat Associated symptoms: Runny nose, Sinus pain, Sore throat Similar symptoms previously: Yes Recently seen / treated by doctor: No - Related Data Allergies/Adverse Reactions: No Known Allergies Allergy (Verified 09/04/17 12:01) Past Medical History - General Information source: Patient - Social History Smoking Status: Current Every Day Smoker Cigarette use (# per day): Yes Chew tobacco use (# tins/day): No Smoking Education Provided: Yes - 3 minutes Frequency of alcohol use: None Drug Abuse: None Lives with: Family Family History: DM, Malignancy Patient has suicidal ideation: No Patient has homicidal ideation: No - Past Medical History Cardiac Medical History: Reports: None Pulmonary Medical History: Reports: None EENT Medical History: Reports: Throat Neurological Medical History: Reports: None Endocrine Medical History: Reports: None Renal/ Medical History: Reports: None Malignancy Medical History: Reports None GI Medical History: Reports: None Musculoskeltal Medical History: Reports None Skin Medical History: Reports None Psychiatric Medical History: Reports: Hx Anxiety, Hx Depression, Hx Post Traumatic Stress Disorder Traumatic Medical History: Reports: None Surgical Hx: Negative Past Surgical History: Reports: None - Immunizations Hx Diphtheria, Pertussis, Tetanus Vaccination: No Review of Systems - Review of Systems Constitutional: Fever, Recent illness EENT: Sinus pressure, Sinus discharge, Throat pain Cardiovascular: No symptoms reported Respiratory: Cough Gastrointestinal: No symptoms reported Genitourinary: No symptoms reported Male Genitourinary: No symptoms reported Musculoskeletal: No symptoms reported Skin: No symptoms reported Hematologic/Lymphatic: No symptoms reported Neurological/Psychological: No symptoms reported -: Yes All other systems reviewed and negative Physical Exam - Vital signs Vitals: Temp Pulse BP Pulse Ox 98.2 F 77 110/62 100 09/04/17 12:23 09/04/17 12:23 09/04/17 12:23 09/04/17 12:23 Interpretation: Normal - General General appearance: Appears well, Alert - HEENT Head: Normocephalic, Atraumatic Eyes: Normal Pupils: PERRL Ears: Normal External canal: Normal Tympanic membrane: Normal Nasal: Swelling, Clear rhinorrhea Mouth/Lips: Normal Mucous membranes: Normal Pharynx: Erythema, Post nasal drainage, Tonsillar hypertrophy. No: Exudate Neck: Normal - Respiratory Respiratory status: No respiratory distress Chest status: Nontender Breath sounds: Nonproductive cough Chest palpation: Normal - Cardiovascular Rhythm: Regular Heart sounds: Normal auscultation Murmur: No - Abdominal Inspection: Normal Distension: No distension Bowel sounds: Normal Tenderness: Nontender Organomegaly: No organomegaly - Back Back: Normal, Nontender - Extremities General upper extremity: Normal inspection, Nontender, Normal color, Normal ROM , Normal temperature General lower extremity: Normal inspection, Nontender, Normal color, Normal ROM , Normal temperature, Normal weight bearing. No: Ronnie's sign - Neurological Neuro grossly intact: Yes Cognition: Normal Orientation: AAOx4 [place] Coma Scale Eye Opening: Spontaneous [place] Coma Scale Verbal: Oriented [place] Coma Scale Motor: Obeys Commands [place] Coma Scale Total: 15 Speech: Normal Motor strength normal: LUE, RUE, LLE, RLE Sensory: Normal - Psychological Associated symptoms: Normal affect, Normal mood - Skin Skin Temperature: Warm Skin Moisture: Dry Skin Color: Normal Course - Vital Signs Vital signs: Temp Pulse Resp BP Pulse Ox 99.2 F 79 16 112/77 97 09/04/17 14:06 09/04/17 14:06 09/04/17 14:06 09/04/17 14:06 09/04/17 14:06 - Laboratory Result Diagrams: 09/04/17 13:05 Discharge - Discharge Clinical Impression: Sore throat (viral) Condition: Stable Disposition: HOME, SELF-CARE Instructions: Family Physicians / Practices Additional Instructions: Viral Syndrome The physician has diagnosed a viral infection. Viruses not only cause "colds," but can cause many different symptoms including generalized aching, fever, headache, cough, diarrhea, nausea, vomiting, and fatigue. The treatment, for the most part, is simply relief of symptoms. This means that antibiotics are usually not given. Rest, fluids, pain medications and, occasionally, medication for the specific symptoms that are most bothersome will be prescribed. Use good handwashing to avoid passing the virus to others. Shared toys should be cleaned with disinfectant. Clean the toilets, sinks, and counter surfaces in bathrooms. Launder clothing in hot water. Contact the physician if you develop any new or unusual symptoms such as severe headache, stiff neck, high fever, chest pain, productive cough, or shortness of breath. You should be rechecked if you don't see marked improvement within seven to 10 days. SORE THROAT: Sore throats may be caused by viruses, bacteria, or fungi. Most are due to a virus, and must get better on their own. Bacterial sore throats, particularly those due to "strep," need treatment with antibiotics. If an antibiotic is prescribed, be sure to take the medication for a full 10 days. Failure to take the antibiotic can result in complications such as rheumatic fever. Sometimes, an injection of antibiotics is given instead of pills or liquid. This single "shot" is equal in effectiveness to the oral medication. To relieve symptoms, take acetaminophen for pain. Sip clear liquids frequently, or eat popsicles or ice chips. Anesthetic sprays or lozenges may help. Make sure the air in the room is not too dry. Avoid using decongestants or antihistamines. Call the doctor if there is no improvement in two days, or if you have difficulty breathing, increasing throat pain, high fever, rash, or frequent vomiting. STEROID MEDICATION: You have been given a medicine of the cortisone/steroid class. This medication is used to control inflammation or allergy. It is usually only given for a short period of time, until the acute process subsides. There are usually no side effects from short-term use of cortisone-like medications. Some persons feel an increased sense of well-being and are not sleepy at bedtime. Long-term use of cortisone medications is best avoided, unless required for a severe condition. If your condition does not remit, or relapses after the course of corticosteroid medication, you should consult your physician. FOLLOW-UP CARE: If you have been referred to a physician for follow-up care, call the physician s office for an appointment as you were instructed or within the next two days. If you experience worsening or a significant change in your symptoms, notify the physician immediately or return to the Emergency Department at any time for re-evaluation. Prescriptions: Benzonatate [Tessalon Perles 100 mg Capsule] 100 mg PO Q8HP PRN #20 capsule PRN Reason: Prednisone [Deltasone 20 mg Tablet] 3 tab PO DAILY 3 Days tablet Forms: Smoking Cessation Education, Return to Work
[2017-09-04 13:30] LABS: ABSOLUTE BASOPHILS # (AUTO) 0.1 10^3/uL (0.0-0.2); ABSOLUTE EOSINOPHILS # (AUTO) 0.1 10^3/uL (0.0-0.6); ABSOLUTE LYMPHOCYTES (AUTO) 1.8 10^3/uL (0.5-4.7); ABSOLUTE MONOCYTES (AUTO) 0.5 10^3/uL (0.1-1.4); ABSOLUTE NEUT (AUTO) 6.4 10^3/uL (1.7-8.2); BASOPHILS % (AUTO) 0.6 % (0-2); EOSINOPHILS % (AUTO) 0.6 % (0-6); HEMATOCRIT 43.6 % (37.9-51.0); HEMOGLOBIN 14.8 g/dL (13.5-17.0); LYMPHOCYTES % (AUTO) 20.5 % (13-45); MEAN CORPUSCULAR HEMOGLOBIN 29.5 pg (27.0-33.4); MEAN CORPUSCULAR HGB CONC 33.9 g/dL (32.0-36.0); MEAN CORPUSCULAR VOLUME 87 fl (80-97); PLATELET COUNT 300 10^3/uL (150-450); RED CELL DISTRIBUTION WIDTH 13.3 % (11.5-14.0); SEGMENTED NEUTROPHILS % (AUTO) 72.3 % (42-78); TOTAL CELLS COUNTED % (AUTO) 100 %; WHITE BLOOD COUNT 8.8 10^3/uL (4.0-10.5)
[2017-09-04 14:08] VITALS: BP 112/77
== END 2017-09-04 14:05 | disposition home or self-care (01) ==
LOC: ER 11:57
DX: J02.9 Acute pharyngitis, unspecified (principal); F17.210 Nicotine dependence, cigarettes, uncomplicated
CPT/HCPCS: 36415; 85025; 86308; 87070; 87880; 99283

== ENCOUNTER 2017-09-11 12:42 | Emergency (ER) | payer SELFPAY ==
[2017-09-11] MEDS ORDERED: KETOROLAC TROMETHAMINE INJ/PF 30 MG/1 ML SDV IM ONE (13:51)
[2017-09-11] MEDS ORDERED: DEXAMETHASONE SOD PHOS INJ 10 MG/1 ML VIAL IM ONE (13:51)
--- NOTE | 2017-09-11 14:00 | ER Document Report ---
HPI - HPI Pain Level: 5 Notes: Patient is a 32-year-old male with no significant past medical history presents ED complaining of intermittent sore throat and swollen tonsils 3 months as well as an occ dry cough secondary to the "irritation" in his throat. Patient states that he was evaluated last week and was diagnosed with a viral illness and sent home with p.o. steroids as well as Tessalon Perles for his cough. When asked if patient received any steroids, patient states that he has never received steroids for this condition. Patient states that he cannot find a surgeon to take out his tonsils, but has not been able to go any time in the last year or 2 because of no insurance. Patient is also requesting narcotic pain medication. Patient is eating and drinking without difficulties. He is urinating normally and having normal bowel movements. Patient does admit to decreased p.o. appetite. He denies any previous history of pharyngeal abscess. He denies any drug allergies. Patient does admit to smoking but denies IV drug use. Denies any headache, fever, neck pain, URI, chest pain, palpitations , syncope, shortness of breath, wheeze, dyspnea, abdominal pain, nausea/vomiting /diarrhea, urinary retention, dysuria, hematuria, or rash. - ROS Systems Reviewed and Negative: Yes All other systems reviewed and negative - CONSTITUTIONAL Constitutional: DENIES: Fever, Chills - EENT EENT: REPORTS: Sore Throat. DENIES: Ear Pain, Eye problems - NEURO Neurology: DENIES: Headache, Weakness, Vision blurred, Dizzinesss / Vertigo - CARDIOVASCULAR Cardiovascular: DENIES: Chest pain - RESPIRATORY Respiratory: REPORTS: Coughing. DENIES: Trouble Breathing - GASTROINTESTINAL Gastrointestinal: DENIES: Abdominal Pain, Black / Bloody Stools - URINARY Urinary: DENIES: Dysuria, Urgency, Frequency - REPRODUCTIVE Reproductive: DENIES: : - MUSCULOSKELETAL Musculoskeletal: DENIES: Extremity pain Past Medical History - Social History Smoking Status: Current Some Day Smoker Frequency of alcohol use: None Drug Abuse: None Family History: DM, Malignancy Patient has suicidal ideation: No Patient has homicidal ideation: No Renal/ Medical History: Denies: Hx Peritoneal Dialysis Psychiatric Medical History: Reports: Hx Anxiety, Hx Depression, Hx Post Traumatic Stress Disorder - Immunizations Hx Diphtheria, Pertussis, Tetanus Vaccination: No Vertical Provider Document - CONSTITUTIONAL Agree With Documented VS: Yes Notes: PHYSICAL EXAMINATION: GENERAL: Well-appearing, well-nourished and in no acute distress. A&Ox4. Answers questions appropriately without any difficulty. HEAD: Atraumatic, normocephalic. EYES: Pupils equal round and reactive to light, extraocular movements intact, sclera anicteric, conjunctiva are normal. ENT: EAC clear b/l. TM's intact b/l without erythema, fluid, or perforation. Nares patent and with clear discharge. oropharynx mild erythema without exudates. 2+ tonsilar hypertrophy with mild erythema no exudate. No palatine shift. Uvula midline. No tongue protrusion. No drooling, hoarseness, or airway compromise. Moist mucous membranes. No sinus tenderness. NECK: Normal range of motion, supple without lymphadenopathy. No rigidity/ meningismus. LUNGS: Breath sounds clear to auscultation bilaterally and equal. No wheezes rales or rhonchi. HEART: Regular rate and rhythm without murmurs, rubs, gallops. ABDOMEN: Soft, nontender, nondistended abdomen. No guarding, no rebound. No masses appreciated. Normal bowel sounds present. No CVA tenderness bilaterally. No hepatosplenomegaly. NEUROLOGICAL: Normal speech, normal gait. Normal sensory, motor exams PSYCH: Normal mood, normal affect. SKIN: Warm, Dry, normal turgor, no rashes or lesions noted. - INFECTION CONTROL TRAVEL OUTSIDE OF THE [place] IN LAST 30 DAYS: No - RESPIRATORY O2 Sat by Pulse Oximetry: 97 Course - Re-evaluation Re-evalutation: 09/11/17 14:20 Patient is an afebrile, well-hydrated, 32-year-old male who presents to the ED with acute pharyngitis, suspect viral. There may be a component of GERD as well to his symptoms. Vitals are stable. PE is otherwise unremarkable. Rapid strep is negative with a throat culture pending. No other labs or imaging warranted at this time based on H&P. Decadron and Toradol given today. I will send her home with a prescription for Tessalon Perles. Low suspicion for any meningitis, sepsis, peritonsillar/pharyngeal abscess, respiratory compromise, Daniel's, or other emergent systemic condition at this time. Patient is aware this condition can change from initial presentation and he needs to monitor symptoms closely. Conservative measures otherwise for symptoms. Recheck with your PCM in 3-5 days. Schedule an appointment with ENT for ongoing/worsening symptoms. Return to the ED with any worsening/concerning symptoms otherwise as reviewed in discharge. Patient is in agreement. - Vital Signs Vital signs: Temp Pulse Resp BP Pulse Ox 98.6 F 109 H 17 118/72 97 09/11/17 12:47 09/11/17 12:47 09/11/17 12:47 09/11/17 12:47 09/11/17 12:47 Discharge - Discharge Clinical Impression: Acute pharyngitis Qualifiers: Pharyngitis/tonsillitis etiology: unspecified etiology Qualified Code(s): J02.9 - Acute pharyngitis, unspecified Condition: Stable Disposition: HOME, SELF-CARE Instructions: Sore Throat ([facility]), Steroid Medication Injection, Toradol Injection ([facility]) Additional Instructions: Maintain adequate fluid intake Take meds as directed Salt water gargles, throat sprays, mouthwash rinse, peroxide gargles tylenol/ibuprofen as needed over the counter cold medication as needed for symptoms F/u: with your PCM in 3-5 days for a recheck Consider consult with ENT for ongoing/worsening symptoms Return to the ED with any fever, worsening pain, chest pain, neck pain/stiffness , shortness of breath, cough, drooling, trouble swallowing/breathing, abdominal pain, n/v/d, rash, or worsening/concerning symptoms otherwise. Prescriptions: Benzonatate [Tessalon Perle 100 mg Capsule] 100 mg PO Q8HP PRN #15 cap PRN Reason: Forms: Smoking Cessation Education Referrals: KEITH ANDINO DO [ASSOCIATE] - Follow up as needed [facility] [Provider Group] - Follow up as needed [facility] [Provider Group] - Follow up as needed
[2017-09-11 14:37] VITALS: BP 119/72
== END 2017-09-11 14:37 | disposition home or self-care (01) ==
LOC: ER 12:42
DX: J02.9 Acute pharyngitis, unspecified (principal); R05 Cough; F17.200 Nicotine dependence, unspecified, uncomplicated; K21.9 Gastro-esophageal reflux disease without esophagitis
CPT/HCPCS: 99283; 96372; 87070; 87880; J1885; J1100

== ENCOUNTER 2017-09-14 09:34 | Emergency (ER) | payer SELFPAY ==
[2017-09-14] MEDS ORDERED: IPRATROPIUM/ALBUTEROL 0.5-2.5 MG/3 ML AMPUL NEB ONE (10:59)
[2017-09-14] MEDS ORDERED: PREDNISONE 20 MG TABLET PO ONE (10:59)
[2017-09-14] MEDS ORDERED: LIDOCAINE 2% VISCOUS SOLN 20 ML UDCUP PO ONE (10:59)
[2017-09-14] MEDS ORDERED: IBUPROFEN 800 MG TABLET PO ONE (10:59)
--- NOTE | 2017-09-14 11:00 | ER Document Report ---
HPI - HPI Patient complains to provider of: Sore throat Onset: Other - 4 months Onset/Duration: Persistent Quality of pain: Achy Pain Level: 5 Context: Patient presents complaining of sore throat for the past 4 months. Patient states that he feels as though his tonsils been swollen for 4 months as well. Patient does report cough that he noticed some blood in his sputum at home today. Patient has had some sinus congestion as well. Patient reports fever of 101 yesterday. Patient states that he recently quit smoking 1 week ago. Patient has been evaluated for this complaint 2 previous times within the past month. Associated Symptoms: Nonproductive cough, Fever, Rhinnorhea, Sore throat. denies: Chest pain, Earache, Nausea Exacerbated by: Denies Relieved by: Denies Similar symptoms previously: Yes Recently seen / treated by doctor: Yes - ROS ROS below otherwise negative: Yes Systems Reviewed and Negative: Yes All other systems reviewed and negative - CONSTITUTIONAL Constitutional: REPORTS: Fever. DENIES: Chills - EENT EENT: REPORTS: Sore Throat, Congestion - CARDIOVASCULAR Cardiovascular: DENIES: Chest pain - RESPIRATORY Respiratory: REPORTS: Coughing. DENIES: Trouble Breathing - GASTROINTESTINAL Gastrointestinal: DENIES: Nausea, Patient vomiting, Diarrhea - REPRODUCTIVE Reproductive: DENIES: : - MUSCULOSKELETAL Musculoskeletal: DENIES: Back Pain, Neck Pain - DERM Skin Color: Normal Skin Problems: None Past Medical History - General Information source: Patient - Social History Smoking Status: Former Smoker Chew tobacco use (# tins/day): No Frequency of alcohol use: None Drug Abuse: None Occupation: None Family History: DM, Malignancy Patient has suicidal ideation: No Patient has homicidal ideation: No Renal/ Medical History: Denies: Hx Peritoneal Dialysis Psychiatric Medical History: Reports: Hx Anxiety, Hx Depression, Hx Post Traumatic Stress Disorder Surgical Hx: Negative - Immunizations Hx Diphtheria, Pertussis, Tetanus Vaccination: No Vertical Provider Document - CONSTITUTIONAL Agree With Documented VS: Yes Exam Limitations: No Limitations General Appearance: WD/WN, No Apparent Distress - INFECTION CONTROL TRAVEL OUTSIDE OF THE [place] IN LAST 30 DAYS: No - HEENT HEENT: Atraumatic, Normocephalic, Pharyngeal Tenderness, Pharyngeal Erythema. negative: Pharyngeal Exudate Notes: 1+ tonsillar hypertrophy - NECK Neck: Normal Inspection, Supple. negative: Lymphadenopathy-Left, Lymphadenopathy-Right - RESPIRATORY Respiratory: No Respiratory Distress, Wheezing - With coughing only O2 Sat by Pulse Oximetry: 97 - CARDIOVASCULAR Cardiovascular: Regular Rate, Regular Rhythm, No Murmur - BACK Back: Normal Inspection. negative: CVA Tenderness-Right, CVA Tenderness-Left - MUSCULOSKELETAL/EXTREMETIES Musculoskeletal/Extremeties: MAEW - NEURO Level of Consciousness: Awake, Alert, Appropriate Motor/Sensory: No Motor Deficit - DERM Integumentary: Warm, Dry, No Rash Course - Re-evaluation Re-evalutation: 09/14/17 13:[address] Simental regarding patient presentation, discussed physical exam findings and diagnostic test results. No additional testing advised at this time. planner internship consulted to help facilitate outpatient follow-up given patient's frequent ER visits. 09/14/17 13:24 Patient's respirations unlabored, no concern for angioedema. Patient managing oral secretions. Patient with decreased wheezing after nebulizer treatment. Will treat for upper respiratory infection with bronchospasm. Throat culture is pending at this time. - Vital Signs Vital signs: Temp Pulse Resp BP Pulse Ox 98.6 F 75 18 118/73 97 09/14/17 09:57 09/14/17 09:57 09/14/17 09:57 09/14/17 09:57 09/14/17 09:57 - Laboratory Laboratory results interpreted by me: 09/14/17 13:10 Labs- Entire Visit 09/14/17 12:35 Group A Strep Rapid NEGATIVE - Diagnostic Test Radiology reviewed: Reports reviewed Discharge - Discharge Clinical Impression: Wheezing, Sore throat (viral) Upper respiratory infection Qualifiers: URI type: unspecified URI Qualified Code(s): J06.9 - Acute upper respiratory infection, unspecified Condition: Stable Disposition: HOME, SELF-CARE Additional Instructions: Return immediately for any new or worsening symptoms Followup with your primary care provider, call tomorrow to make a followup appointment Throat culture is pending, we will call if you need any different treatment UPPER RESPIRATORY ILLNESS: You have a viral infection of the respiratory passages -- a "cold." This common infection causes nasal congestion, drainage, and often sore throat and cough. It is highly contagious. The disease usually lasts about 10 to 14 days. There is no "cure" for the viral infection -- it must run its course. If there is a complication, such as bacterial infection in the nose, sinuses, middle ear, or bronchial tubes, antibiotics may be required. The antibiotics won't affect the virus. Drink plenty of fluids. A humidifier may help. An expectorant medication or decongestant may make you more comfortable. Use acetaminophen or ibuprofen for fever or aches. See the doctor if fever persists over two days, if there is any significant worsening of your symptoms, or if you simply fail to improve as expected. BRONCHOSPASM: You have tightness in the bronchial tubes, called bronchospasm. This often occurs with bronchial infections. Allergies, inhaled chemicals, and polluted or cold air can also provoke bronchospasm. It's more likely in patients with asthma in the family. Emergency treatment of bronchospasm may include adrenaline shots or bronchodilator aerosol. You may feel lightheaded and have a rapid pulse for an hour or two. Rest and get plenty of fluids. At home, we'll treat you with a bronchodilator inhaler. Antibiotics and corticosteroids may be required for some patients. Until you recover, avoid chemical fumes, dusts, pollens, and exercising in very cold or dry air. If you smoke, stop now!! If you develop a fever, increased wheezing, chest pain, or severe shortness of breath, you should contact the doctor immediately. INHALED BRONCHODILATORS: You have received a treatment of and/or prescription for an inhaled bronchodilator -- a medication which stimulates the airways in the lung to dilate. This improves the flow of air in asthma, bronchitis, and emphysema. These medicines have some similarity to adrenaline, and can cause similar side effects: shakiness, racing heart, and a sense of nervousness. These side effects decrease with time. Contact your doctor if these side effects are severe. Do not over-use the medicine. Too-frequent use of the inhaler may make it ineffective. Call your doctor if the inhaler is not controlling your symptoms at the prescribed doses. STEROID MEDICATION: You have been given an injection of or oral medicine of the cortisone/ steroid class. This medication is used to control inflammation or allergy. Arnold t is usually only given for a short period of time, until the acute process subsides. There are usually no side effects from short-term use of cortisone-like medications. Some persons feel an increased sense of well-being and are not sleepy at bedtime. Long-term use of cortisone medications is best avoided, unless required for a severe condition. If your condition does not remit, or relapses after the course of corticosteroid medication, you should consult your physician. USE OF ACETAMINOPHEN (Tylenol): Acetaminophen may be taken for pain relief or fever control. It's much safer than aspirin, offering a wider range of "safe" dosages. It is safe during . Some brand names are Tylenol, Panadol, Datril, Anacin 3, Tempra, and Liquiprin. Acetaminophen can be repeated every four hours. The following are maximum recommended dosages: >89 pounds or adults 650 mg to 900 mg Acetaminophen can be repeated every four hours. Maximum dose not to exceed 4000 mg a day. FOLLOW-UP CARE: If you have been referred to a physician for follow-up care, call the physician s office for an appointment as you were instructed or within the next two days. If you experience worsening or a significant change in your symptoms, notify the physician immediately or return to the Emergency Department at any time for re-evaluation. Prescriptions: Albuterol Sulfate [Ventolin Hfa] 2 puff IH Q4HP PRN #17 gm PRN Reason: Naproxen [Naprosyn 250 Nmg Tablet] 1 tab PO BID #14 tablet Prednisone [Deltasone 10 mg Tablet] 10 mg PO ASDIR PRN #21 tablet PRN Reason: Referrals: [facility] [Provider Group] - Follow up as needed [facility] [Provider Group] - Follow up as needed [facility] [Provider Group] - Follow up tomorrow
--- NOTE | 2017-09-14 11:33 | RADIOLOGY REPORT (SQ) ---
EXAM DESCRIPTION: SOFT TISSUE NECK COMPLETED DATE/TIME: 09/14/2017 11:26 am REASON FOR STUDY: sore throat, cough COMPARISON: CT cervical spine 11/29/2015 NUMBER OF VIEWS: Two views. TECHNIQUE: AP and lateral radiographic image of the soft tissues of the neck. LIMITATIONS: None. FINDINGS: EPIGLOTTIS: Normal. Contour normal. Aryepiglottic folds normal. PREVERTEBRAL SOFT TISSUES: Normal. No soft tissue swelling. SUBGLOTTIC AREA: Normal. No narrowing. RETROPHARYNGEAL SPACE: Normal. No soft tissue masses. BONES: No significant findings. LUNG APICES: Normal. OTHER: No radiopaque foreign body. No other significant finding. IMPRESSION: NEGATIVE STUDY OF THE SOFT TISSUES OF THE NECK. TECHNICAL DOCUMENTATION: JOB ID: [id number] [employer]- All Rights Reserved
--- NOTE | 2017-09-14 11:35 | RADIOLOGY REPORT (SQ) ---
EXAM DESCRIPTION: CHEST PA/LAT COMPLETED DATE/TIME: 09/14/2017 11:26 am REASON FOR STUDY: cough COMPARISON: Chest films 12/14/2016, 12/10/2016 EXAM PARAMETERS: NUMBER OF VIEWS: two views TECHNIQUE: Digital Frontal and Lateral radiographic views of the chest acquired. RADIATION DOSE: NA LIMITATIONS: none FINDINGS: LUNGS AND PLEURA: No opacities, masses or pneumothorax. No pleural effusion. MEDIASTINUM AND HILAR STRUCTURES: No masses or contour abnormalities. HEART AND VASCULAR STRUCTURES: Heart normal size. No evidence for failure. BONES: No acute findings. HARDWARE: None in the chest. OTHER: No other significant finding. IMPRESSION: NO SIGNIFICANT RADIOGRAPHIC FINDING IN THE CHEST. TECHNICAL DOCUMENTATION: JOB ID: [id number] [employer]- All Rights Reserved
[2017-09-14 13:47] VITALS: BP 128/84
== END 2017-09-14 13:47 | disposition home or self-care (01) ==
LOC: ER 09:34
DX: J02.9 Acute pharyngitis, unspecified (principal); R50.81 Fever presenting with conditions classified elsewhere; R06.2 Wheezing; Z87.891 Personal history of nicotine dependence
CPT/HCPCS: 94640; 99283; 87070; 87880; 71046; 70360; J3490; J7512; J7620

== ENCOUNTER 2020-05-11 17:42 | Emergency (ER) | payer SELFPAY ==
[2020-05-11] MEDS ORDERED: CLINDAMYCIN HCL 150 MG CAPSULE PO ONE (18:00)
[2020-05-11 18:01] VITALS: BP 116/66
[2020-05-11] MEDS ORDERED: LIDOCAINE 2% VISCOUS SOLN 15 ML UDCUP PO ONE (18:01)
--- NOTE | 2020-05-11 18:06 | ER Document Report ---
ED Oral Problem - General Chief Complaint: Jaw Pain Stated Complaint: MOUTH,TOOTH,JAW PAIN Time Seen by Provider: 05/11/20 17:49 Primary Care Provider: DENTISTRY [Provider Group] - Follow up as needed Mode of Arrival: Ambulatory Information source: Patient Notes: 34-year-old male presented to ED for complaint of dental pain to the generalized mouth but worse to the left lower jaw. He states he does have some pain right in front of his left ear where he has a zit as he calls it. He does have a minimal amount of lymphedema to the left cervical chain. He does have swelling around his left lower wisdom tooth and it is very broken. He does have very decayed teeth upper and lower jaw. States he did have multiple injuries to his jaws and head and face long time ago and he thinks that is why he has all the decay he has now. TRAVEL OUTSIDE OF THE [place] IN LAST 30 DAYS: No - HPI Patient complains to provider of: Jaw pain, Toothache Onset: Other - Chronic Onset: Gradual Quality of pain: Sharp, Throbbing Severity: Moderate Pain Level: 3 Associated symptoms: Toothache Worsened by: Cold Relieved by: Nothing Similar symptoms previously: Yes Recently seen / treated by doctor/dentist: No - Related Data Allergies/Adverse Reactions: No Known Allergies Allergy (Verified 09/14/17 09:41) Past Medical History - General Information source: Patient - Social History Smoking Status: Current Every Day Smoker Cigarette use (# per day): Yes - 5 to 6 cigarettes a day Smoking Education Provided: Yes - 3 minutes Frequency of alcohol use: Social Drug Abuse: Marijuana Occupation: [employer] Lives with: Family Family History: DM, Malignancy Patient has suicidal ideation: No Patient has homicidal ideation: No - Past Medical History Cardiac Medical History: Reports: None Pulmonary Medical History: Reports: None EENT Medical History: Reports: None Neurological Medical History: Reports: None Endocrine Medical History: Reports: None Renal/ Medical History: Reports: None Malignancy Medical History: Reports None GI Medical History: Reports: None Musculoskeletal Medical History: Reports Hx Musculoskeletal Deformity, Reports Hx Musculoskeletal Trauma Skin Medical History: Reports None Psychiatric Medical History: Reports: Hx Anxiety, Hx Depression, Hx Post Traumatic Stress Disorder Traumatic Medical History: Reports: Hx Fractures - Ribs facial bones Infectious Medical History: Reports: None - Immunizations Hx Diphtheria, Pertussis, Tetanus Vaccination: No Review of Systems - Review of Systems Constitutional: No symptoms reported EENT: Ear pain, Mouth pain, Dental problem Cardiovascular: No symptoms reported Respiratory: No symptoms reported Gastrointestinal: No symptoms reported Genitourinary: No symptoms reported Male Genitourinary: No symptoms reported Musculoskeletal: No symptoms reported Skin: No symptoms reported Hematologic/Lymphatic: No symptoms reported Neurological/Psychological: No symptoms reported -: Yes All other systems reviewed and negative Physical Exam - Vital signs Vitals: Temp Pulse Resp BP Pulse Ox 98.0 F 94 18 116/66 98 05/11/20 18:00 05/11/20 18:00 05/11/20 18:00 05/11/20 18:00 05/11/20 18:00 Interpretation: Normal - General General appearance: Appears well, Alert - HEENT Head: Normocephalic, Atraumatic Eyes: Normal Pupils: PERRL Ears: Normal External canal: Normal Tympanic membrane: Bulging, Injected, Loss of landmarks, Serous effusion Sinus: Normal Nasal: Normal Mouth/Lips: Caries Mucous membranes: Normal Teeth diagram: 1 - Multiple broken teeth multiple decayed teeth tenderness Pharynx: Normal Neck: Posterior cervical chain - Respiratory Respiratory status: No respiratory distress Chest status: Nontender Breath sounds: Normal Chest palpation: Normal - Cardiovascular Rhythm: Regular Heart sounds: Normal auscultation Murmur: No - Abdominal Inspection: Normal Distension: No distension Bowel sounds: Normal Tenderness: Nontender Organomegaly: No organomegaly - Back Back: Normal, Nontender - Extremities General upper extremity: Normal inspection, Nontender, Normal color, Normal ROM, Normal temperature General lower extremity: Normal inspection, Nontender, Normal color, Normal ROM, Normal temperature, Normal weight bearing. No: Ronnie's sign - Neurological Neuro grossly intact: Yes Cognition: Normal Orientation: AAOx4 Gail Coma Scale Eye Opening: Spontaneous Gail Coma Scale Verbal: Oriented Gail Coma Scale Motor: Obeys Commands [place] Coma Scale Total: 15 Speech: Normal Motor strength normal: LUE, RUE, LLE, RLE Sensory: Normal - Psychological Associated symptoms: Normal affect, Normal mood - Skin Skin Temperature: Warm Skin Moisture: Dry Skin Color: Normal Course - Re-evaluation Re-evalutation: 05/11/20 18:18 Presentation is most consistent with likely an infected tooth. Airway is mccallum nt. Vitals within normal limits. Patient is able swallow without any difficulty. There is no significant facial swelling. No evidence of Daniel angina, apical abscess, or airway obstruction. Patient will be started on antibiotics. I've instructed to follow-up with dentistry as earliest ability for definitive management. At this time will discharge with return precautions and follow-up recommendations. Verbal discharge instructions given a the bedside and opportunity for questions given. Medication warnings reviewed. Patient is in agreement with this plan and has verbalized understanding of return precautions and the need for primary care follow-up in the next 24-72 hours. - Vital Signs Vital signs: Temp Pulse Resp BP Pulse Ox 98.0 F 94 18 116/66 98 05/11/20 18:00 05/11/20 18:00 05/11/20 18:00 05/11/20 18:00 05/11/20 18:00 Discharge - Discharge Clinical Impression: Pain due to dental caries Left otitis media Qualifiers: Otitis media type: suppurative Chronicity: acute Recurrence: non-recurrent Spontaneous tympanic membrane rupture: without spontaneous rupture Qualified Code(s): H66.002 - Acute suppurative otitis media without spontaneous rupture of ear drum, left ear Condition: Stable Disposition: HOME, SELF-CARE Additional Instructions: TOOTHACHE: Your pain is due to dental decay. The tooth must be repaired in order for you to feel better. You will, therefore, be referred to a dentist. We do not h ave dentists on the staff at [facility]. Severe swelling or drainage around a tooth usually means a dental abscess. This also requires evaluation and treatment by the dentist, but antibiotics may be prescribed while awaiting dental treatment. You should be rechecked immediately if you develop major swelling of the face, increasing pain, a lump in the jaw or gums, headache, difficulty swallowing, or fever. OTITIS MEDIA: You have a middle ear infection (otitis media). This is usually a complication of a cold or sore throat. The middle ear cavity becomes filled w ith infection. Pressure and stretching of the ear drum cause pain. Antibiotics are required. A 10 day course is usually prescribed. A decongestant may be recommended if you have a "runny nose." You may need anesthetic drops or other pain medication. A follow-up exam may be recommended to make sure the infection has completely cleared. If the ear begins to drain, it means the ear drum has ruptured. This will usually heal spontaneously. However, it means you should keep the ear dry until re-examined by a doctor. Call the physician or return for examination at once if there is severe headache, stiff neck, confusion, increasing fever, or dizziness. You should improve significantly within two days. If you're not better, call the doctor. AMOXICILLIN: Amoxicillin is a member of the penicillin family. It covers the germs likely to cause ear, bronchial, and urinary infections better than plain penicillin. Amoxicillin can be taken without regard to meals. Nausea after taking the medication is rare, but can occur. Diarrhea can occur, particularly in small children. Vaginal yeast infections and oral thrush in infants are also common. Contact your physician if these problems occur. Allergy to penicillins is common. If you have had an allergic reaction to any drug of the penicillin family, you should never take any other penicillin. Notify your doctor at once if you develop hives, itching, swelling, faintness, or shortness of breath. Less serious side effects can include nausea or diarrhea. CLINDAMYCIN: You have been given a prescription for the antibiotic clindamycin. It is often prescribed for infections in the mouth, such as dental infections or abscesses, and for skin infections due to MRSA. It's important that you take all the medication, unless instructed otherwise by your physician. Failure to complete the entire course can result in relapse of your condition. Common side effects of antibiotics include nausea, intestinal cramping, or diarrhea. Women may develop vaginal yeast infections, and babies can get yeast (thrush) in the mouth following the use of antibiotics. Contact your physician if you develop significant side effects from this medication. Allergy to this antibiotic can result in hives, wheezing, faintness, or itching. If symptoms of allergy occur, stop the medication and call the doctor. Salt and soda solution 1 quart of water 1 tablespoon of salt 1 teaspoon of baking soda Mixed 3 ingredients together and boil for 1 minute Placed in a covered quart jar Use 1/2 ounce of cold solution to gargle 3 times a day I have given you a syringe of viscous lidocaine. Please place a small amount of this on your finger and apply it to the tooth and gums that are paining you at the time. Please do not use any more often than every 4 hours or it will need denatured your gums and cause more pain and more infection. Please remember no more often than every 4 hours. Acetaminophen Acetaminophen may be taken for pain relief or fever control. It's much safe r than aspirin, offering a wider range of "safe" dosages. It is safe during . Some brand names are Tylenol, Panadol, Datril, Anacin 3, Tempra, and Liquiprin. Acetaminophen can be repeated every four hours. The following are maximum recommended dosages: WEIGHT Dose Drops Elixir Chewable(80mg) (LBS.) drprs=droppers tsp=teaspoon 6 40 mg .4 ml (1/2) 6-11 80 mg .8 ml (full) 1/2 tsp 1 tab 12-16 120 mg 1 1/2 drprs 3/4 tsp 1 1/2 tabs 17-23 160 mg 2 drprs 1 tsp 2 tabs 24-30 240 mg 3 drprs 1 1/2 tsp 3 tabs 30-35 320 mg 2 tsp 4 tabs 36-41 360 mg 2 1/4 tsp 4 1/2 tabs 42-47 400 mg 2 1/2 tsp 5 tabs 48-53 480 mg 3 tsp 6 tabs 54-59 520 mg 3 1/4 tsp 6 1/2 tabs 60-64 560 mg 3 1/2 tsp 7 tabs 65-70 600 mg 3 3/4 tsp 7 1/2 tabs 71-76 640 mg 4 tsp 8 tabs 77-82 720 mg 4 1/2 tsp 9 tabs 83-88 800 mg 5 tsp 10 tabs >89 pounds or adults 650 mg to 900 mg Acetaminophen can be repeated every four hours. Maximum daily dose not to exceed 4000 mg. These maximum recommended dosages are slightly higher than the dosages written on the product container, but these dosages are very safe and well below the toxic dosage for acetaminophen. Ibuprofen Ibuprofen is an excellent, safe drug for pain control. In addition, it has potent antiinflammatory effects which are beneficial, especially in the treatment of injuries, arthritis, or tendonitis. It's best to take ibuprofen with food. Persons with ulcer disease or allergy to aspirin should notify their physician of this before taking ibuprofen. Take the medication exactly as prescribed. Don't take additional doses unless instructed to do so by your doctor. If you develop wheezing, shortness of breath, hives, faintness, stomach pain, vomiting, or dark black stools, return for re-evaluation at once. FOLLOW-UP CARE: You have been referred for follow-up care to the dentists listed below. Call the dentists office for an appointment as you were instructed or within the next two days. If you experience worsening or a significant change in your symptoms, notify the physician immediately or return to the Emergency Department at any time for re-evaluation. [facility] [address] [place] [address] [facility] [place] [address] [facility] [address] [facility] Emergency Department [facility] [facility] [address] [email or web address] [address] [place] [address] Thursday- 8:00am to 5:00 pm Will see patients from other [facility]. Charges based on income and family size and accepts Medicare, Medicaid, and Insurances Will pull molars [facility] [id number] Hours of Operation 8:00 am - 4:30 pm weekdays The following dental offices accept Medicaid: [facility] Dr. [address] Dr[address] [place] Dr. June [place], [place], and [place] oral [facility] Dr. Brooks ([place]) Dr. Bansal ([place]) [facility] Drs. Arango ([place]) Dr. Ybarra ([place]) [facility] Dr. Dong ([place]) Drs. Leiva and ([place]) Medicaid Care Line Prescriptions: Amoxicillin 875 mg PO BID #20 tablet Clindamycin HCl 300 mg PO QID #40 capsule Forms: Smoking Cessation Education Referrals: DENTISTRY [Provider Group] - Follow up as needed
[2020-05-11] MEDS ORDERED: AMOXICILLIN TRIHYDRATE 500 MG CAPSULE PO ONE (18:13)
== END 2020-05-11 18:22 | disposition home or self-care (01) ==
LOC: ER 17:42
DX: H66.002 Acute suppurative otitis media without spontaneous rupture of ear drum, left ear (principal); K02.9 Dental caries, unspecified; R68.84 Jaw pain; F17.210 Nicotine dependence, cigarettes, uncomplicated
CPT/HCPCS: 99406; 99283; J3490